=== PATIENT | female | born 1950 | race Caucasian/White ===

== ENCOUNTER 2016-05-17 13:49 | Emergency (ER) | payer MEDICARE, BC ==
--- NOTE | 2016-05-17 16:00 | EDM.PDOC ---
ED HPI HEAD INJURY - General Chief Complaint: Head Injury Stated Complaint: HEAD INJURY Time Seen by Provider: 05/17/16 14:47 Source of Information: Reports: Patient, Family (), RN notes reviewed - History of Present Illness INITIAL COMMENTS - FREE TEXT/NARRATIVE: 65-year-old female that comes in status post fall and lack injury to posterior aspect of head. 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 A couple of her meds had been increased a couple of weeks ago and she was falling much more even on a daily basis. Therefore the Aricept was cut back to the previous 10 mg per day. With that she's been doing better but still has been falling on occasion. Her states that she seems to just lose her balance and will fall unexpectedly. Today this happened when she was leaving the bathroom. She does use a walker. Was no LOC. The laceration of the posterior aspect of her scalp did bleed a fair amount initially but now bleeding has stopped. On arrival to ED and at time of my exam she does deny headache. There's been no vomiting. No other apparent injury. - Related Data Allergies/ADRs: Allergies Allergy/AdvReac Type Severity Reaction Status Date / Time No Known Allergies Allergy Verified 05/17/16 15:08 Home Meds: Home Meds Aspirin [[place] Aspirin] 81 mg PO DAILY 02/12/14 [History] Ramipril [Altace] 10 mg PO DAILY 02/12/14 [History] Cholecalciferol (Vitamin D3) [Vitamin D] 5,000 units PO DAILY 05/31/14 [History] Cyanocobalamin (Vitamin B12) [Vitamin B12] 1,000 mcg PO DAILY 05/31/14 [History] Gluc/Juan-Msm#2/C/D3/Juan R/Born [Vfsmdxumet-Qkrnppflcup-RJK] 1 tab PO BID [History] Sertraline [Zoloft] 100 mg PO DAILY 05/31/14 [History] Acetaminophen [Tylenol] 500 mg PO Q6H PRN 06/05/14 [History] Calcium Carb & Citrate/Vit D3 [Calcium + D3 ER Tablet] 2 tab PO BID 06/05/14 [ History] Simvastatin [Zocor] 40 mg PO BEDTIME 06/05/14 [History] Divalproex Sodium 500 mg PO BEDTIME 05/17/16 [History] Donepezil [Aricept] 1 tab PO BEDTIME 05/17/16 [History] Past Medical History HEENT History: Reports: Impaired vision Cardiovascular History: Reports: Hypertension Other Cardiovascular History: hyperlipidemia Gastrointestinal History: Reports: Other (see below) Other Gastrointestinal History: Diverticular Disease Musculoskeletal History: Reports: Other (see below) Other Musculoskeletal History: 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 foot, bilateral foot pain, chronic joint pain, hallux valgus Neurological History: Reports: Concussion, Other (see below) Other Neuro History: Traumatic Encephalopathy, Memory Loss, 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 Psychiatric History: Reports: Anxiety, Depression Endocrine/Metabolic History: Reports: Diabetes, type II Hematologic History: Reports: Anemia - Past Surgical History Female Surgical History: Reports: Tubal ligation Social & Family History - Tobacco Use Smoking Status *Q: Never Smoker - Caffeine Use Caffeine Use: Reports: None - Alcohol Use Days Per Week of Alcohol Use: 0 Number of Drinks Per Day: 0 Total Drinks Per Week: 0 - Recreational Drug Use Recreational Drug Use: No Drug Use in Last 12 Months: No ED ROS GENERAL - Review of Systems Review Of Systems: See Below Constitutional: Denies: fever, chills, diaphoresis HEENT: Reports: Other (lack injury to posterior aspect of scalp). Denies: Ear discharge, Nosebleed Respiratory: Denies: shortness of breath Cardiovascular: Denies: Chest pain GI/Abdominal: Denies: Abdominal pain, Nausea, Vomiting Musculoskeletal: Denies: neck pain, shoulder pain, leg pain, joint pain Neurological: Denies: trouble speaking (speech is somewhat slow but this is not a change from usual for), weakness ED EXAM, HEAD INJURY - Physical Exam Exam: See Below General Appearance: alert, no apparent distress Head: scalp swelling (very slight posterior), other (2 cm shallow laceration posterior aspect of scalp, edge is very mildly , no active bleeding at time of my exam). No: facial ecchymosis, facial swelling, facial tenderness Eyes: bilateral eye: PERRL Ears: normal external exam, normal canal Nose: normal inspection Throat/Mouth: Normal inspection, Other (no intraoral injury) Neck: non-tender, full range of motion Respiratory: no respiratory distress, lungs clear Cardiovascular: regular rate, rhythm GI/Abdominal Exam (Abbreviated): soft, non tender Back Exam: No: paraspinal tenderness, vertebral tenderness Extremities: no evidence of injury. No: bony-point tenderness Neurologic: no motor/sensory deficits, other (patient does answer simple questions) Skin: Normal color, Warm/dry Course - Vital Signs Last Recorded V/S: Last Vital Signs Temp 98.7 F 05/17/16 15:04 Pulse 74 05/17/16 16:15 Resp 18 05/17/16 16:15 BP 163/62 H 05/17/16 16:15 Pulse Ox 99 05/17/16 16:15 - Re-Assessments/Exams Free Text/Narrative Re-Assessment/Exam: 05/17/16 19:21 she continued to have no headache. I did discuss option of placing some sutures for the posterior laceration. However because this is shallow and very slight separation only we will just go ahead and let this heal on its own. This should do very well. Protective pressure dressing applied. is very comfortable with this discharge instructions as documented Departure - Departure Time of Disposition: 15:57 Disposition: Home, Self-Care 01 Condition: fair Clinical Impression: Fall Qualifiers: Encounter type: initial encounter Qualified Code(s): W19.XXXA - Unspecified fall, initial encounter Scalp laceration Qualifiers: Encounter type: initial encounter Qualified Code(s): S01.01XA - Laceration without foreign body of scalp, initial encounter Instructions: Fall Prevention in the Home, [id number], Laceration Care, Adult , [id number] Referrals: Traci Lynn MD [Primary Care Provider] - Forms: ED Department Discharge Additional Instructions: pressure dressing to wound for the next 3-4 days to help keep that protected and to help prevent further bleeding, this is a wound that should heal quite well without suturing. If there is a bleeding problem with dressing change apply pressure until bleeding stops. Call or return to ED as needed
[2016-05-17 16:32] VITALS: BP 163/62
== END 2016-05-17 16:15 | disposition home or self-care (01) ==
LOC: JD.ED 13:49
DX: S01.01XA Laceration without foreign body of scalp, initial encounter (principal); I10 Essential (primary) hypertension; E78.5 Hyperlipidemia, unspecified; F41.8 Other specified anxiety disorders; E11.9 Type 2 diabetes mellitus without complications; Z79.82 Long term (current) use of aspirin; Z79.899 Other long term (current) drug therapy; W19.XXXA Unspecified fall, initial encounter
CPT/HCPCS: 99282; 99283

== ENCOUNTER 2017-10-25 18:36 | Emergency (ER) | payer MEDICARE, BC ==
[2017-10-25 19:16] VITALS: BP 141/56
--- NOTE | 2017-10-25 19:29 | EDM.PDOC ---
ED HPI GENERAL MEDICAL PROBLEM - General Chief Complaint: Gastrointestinal Problem Stated Complaint: bleeding ulcer Time Seen by Provider: 10/25/17 19:12 Source of Information: Reports: Family (, daughter) History Limitations: Reports: Physical Impairment (Expressive aphasia) - History of Present Illness INITIAL COMMENTS - FREE TEXT/NARRATIVE: The patient has advanced dementia and is unable to contribute to her history. The patient's states that the patient developed bleeding hemorrhoids on 10/16/2017. He was able to get them to stop by applying ice cubes, cold washcloths, and preparation H to the area, and she has only had mild spotting since, however, she again had more significant bleeding tonight. The patient's states that the patient is not followed up with anyone regarding this issue. The patient's PCP is Dr. Traci Lynn. - Related Data Allergies Allergy/AdvReac Type Severity Reaction Status Date / Time No Known Allergies Allergy Verified 10/25/17 19:15 Home Meds: Home Meds Aspirin [[place] Aspirin] 81 mg PO DAILY 02/12/14 [History] Ramipril [Altace] 10 mg PO DAILY 02/12/14 [History] Cholecalciferol (Vitamin D3) [Vitamin D] 5,000 units PO DAILY 05/31/14 [History] Cyanocobalamin (Vitamin B12) [Vitamin B12] 1,000 mcg PO DAILY 05/31/14 [History] Gluc/Juan-Msm#2/C/D3/Juan R/Born [Vsitgwvrib-Icfhdsdagqe-ZEW] 1 tab PO BID [History] Sertraline [Zoloft] 100 mg PO DAILY 05/31/14 [History] Acetaminophen [Tylenol] 500 mg PO Q6H PRN 06/05/14 [History] Calcium Carb & Citrate/Vit D3 [Calcium + D3 ER Tablet] 2 tab PO BID 06/05/14 [ History] Simvastatin [Zocor] 40 mg PO BEDTIME 06/05/14 [History] Divalproex Sodium 500 mg PO BEDTIME 05/17/16 [History] Donepezil [Aricept] 1 tab PO BEDTIME 05/17/16 [History] Past Medical History HEENT History: Reports: Impaired Vision Cardiovascular History: Reports: High Cholesterol, Hypertension Gastrointestinal History: Reports: Diverticulosis, Hemorrhoids Musculoskeletal History: Reports: Osteoarthritis Neurological History: Reports: Head Trauma (leading to dementia) Psychiatric History: Reports: Anxiety, Depression Endocrine/Metabolic History: Reports: Diabetes, Type II Hematologic History: Reports: Anemia - Past Surgical History Female Surgical History: Reports: Tubal Ligation Social & Family History - Family History Family Medical History: Noncontributory - Tobacco Use Smoking Status *Q: Never Smoker - Caffeine Use Caffeine Use: Reports: None - Alcohol Use Alcohol Use History: No - Recreational Drug Use Recreational Drug Use: No - Living Situation & Occupation Living situation: Reports: , with Spouse Occupation: Disabled ED ROS GENERAL - Review of Systems Review Of Systems: ROS reveals no pertinent complaints other than HPI. ED EXAM, GI/ABD - Physical Exam Exam: See Below Exam Limited By: No Limitations (assisted by her ) General Appearance: Other (Awake, confused) Rectal (Female) Exam: Hemorrhoids (Non-thrombosed, non-tender left lateral and right posterior external hemorrhoids. Blood noted on the underwear.) Course - Vital Signs Last Recorded V/S: Last Vital Signs Temp 37.0 C 10/25/17 19:12 Pulse 71 10/25/17 19:12 Resp 17 10/25/17 19:12 BP 141/56 H 10/25/17 19:12 Pulse Ox 98 10/25/17 19:12 - Re-Assessments/Exams Free Text/Narrative Re-Assessment/Exam: 10/25/17 19:26 As the patient's suspected, the patient has bilateral nonthrombosed external hemorrhoids that are not actively bleeding. No treatment is required tonight, but since this is an ongoing problem, I will refer the patient to Dr. Bedolla for follow-up. Departure - Departure Time of Disposition: 19:27 Disposition: Home, Self-Care 01 Condition: Good Clinical Impression: External hemorrhoids - Discharge Information *PRESCRIPTION DRUG MONITORING PROGRAM REVIEWED*: Not Applicable *COPY OF PRESCRIPTION DRUG MONITORING REPORT IN PATIENT SHEREE: Not Applicable Instructions: Hemorrhoids, [id number] Referrals: Traci Lynn MD [Primary Care Provider] - Kristopher Bedolla MD [Physician] - Forms: ED Department Discharge Additional Instructions: Savannah was seen in the emergency room for minor bleeding. Definitive treatment for this condition is surgical. Please have Savannah follow- up with the surgeon Dr. Chioma at the next available appointment. If any other problems, please do not hesitate to return Savannah to the ER.
== END 2017-10-25 19:48 | disposition home or self-care (01) ==
LOC: JD.ED 18:36
DX: K64.4 Residual hemorrhoidal skin tags (principal); E78.00 Pure hypercholesterolemia, unspecified; I10 Essential (primary) hypertension; F41.9 Anxiety disorder, unspecified; F32.9 Major depressive disorder, single episode, unspecified; D64.9 Anemia, unspecified; E11.9 Type 2 diabetes mellitus without complications; Z79.82 Long term (current) use of aspirin; Z79.899 Other long term (current) drug therapy
CPT/HCPCS: 99283

== ENCOUNTER 2018-04-08 12:32 | Emergency (ER) | payer MEDICARE, BC ==
[2018-04-08] MEDS ORDERED: Sodium Chloride 0.9% 10 ML Syringe FLUSH PRN (12:53)
[2018-04-08] MEDS ORDERED: Sodium Chloride 0.9% 1,000 ML IV SCH (13:00)
--- NOTE | 2018-04-08 13:22 | CR ---
Chest: Portable view of the chest was obtained. Comparison: Prior chest x-ray of 03/09/18. Heart size is within normal limits. Tortuous thoracic aorta is seen. Lungs are clear with no acute parenchymal change. Bony structures are osteopenic. Impression: 1. Nothing acute is seen on portable chest x-ray. Diagnostic code #2
[2018-04-08] MEDS ORDERED: Sodium Chloride 0.9% 10 ML Syringe FLUSH ONE (14:10)
[2018-04-08] MEDS ORDERED: Iopamidol 612 MG/ML 100 ML Bottle IVPUSH ONE (14:10)
--- NOTE | 2018-04-08 15:00 | CT ---
CT abdomen and pelvis Technique: Multiple axial sections were obtained from above the dome of the diaphragm inferiorly through the pubic symphysis. Intravenous contrast was utilized. No oral contrast has been given. Delayed images were also obtained from above the kidneys inferiorly through the pubic symphysis. Comparison: Prior CT abdomen and pelvis exam of 03/09/18. Findings: Visualized lung bases show nothing acute. Moderate size hiatal hernia is noted. Liver shows no focal parenchymal abnormality. Small pericardial effusion is seen which is an interval change from previous exam. Spleen appears within normal limits. Complicated lesion is noted within the right kidney which appears stable from most recent exam and could represent a low-grade carcinoma. This finding measures measures between 1.6 cm and 2.0 cm. No additional abnormality is seen within the kidneys. Adrenal glands show no nodule. Pancreas is within normal limits. Gallbladder contains no calcified gallstones. Aorta shows no aneurysm. No retroperitoneal adenopathy or mesenteric abnormalities are seen. No pelvic mass or adenopathy is seen. No free fluid or inflammatory change is seen. Large amount of stool is seen within the rectosigmoid region. Stool and fluid is seen throughout other portions of the colon. Degenerative change with scoliosis is seen within the spine. Delayed images show contrast within both ureters which show no dilatation. Contrast is noted within the bladder. Impression: 1. Large amount of stool within the rectosigmoid region with stool and fluid seen throughout other portions of the colon. Findings compatible with constipation causing obstipation. 2. Complicated renal lesion with low-grade renal cell carcinoma being a possibility within the right kidney. No change in size is definitely seen from most recent exam. 3. Small pericardial effusion which is an interval change from previous exam. 4. Other incidental findings as noted above. Diagnostic code #9
[2018-04-08] MEDS ORDERED: Metoclopramide 10 MG/2 ML SDV IVPUSH ONE (16:18)
--- NOTE | 2018-04-08 16:32 | EDM.PDOC ---
ED HPI GENERAL MEDICAL PROBLEM - General Chief Complaint: Gastrointestinal Problem Stated Complaint: [facility] Time Seen by Provider: 04/08/18 12:42 Source of Information: Reports: EMS, Family, Longterm Records History Limitations: Reports: Altered Mental Status - History of Present Illness INITIAL COMMENTS - FREE TEXT/NARRATIVE: The patient presents from [facility] for vomiting. The patient has a history of bowel obstructions and aspirations. She has alzheimer's disease and does not talk. At times it is hard to feed her. Her fed her this morning and she vomited a couple times. She also had a large bowel movement this morning. When she arrived her her oxygen saturations were low at 86%. She was put on some oxygen and her saturations came up. She was getting some phlegm up. Onset: Sudden Duration: Hour(s): Severity: Moderate Improves with: Reports: None Worsens with: Reports: None Associated Symptoms: Reports: Cough, Nausea/Vomiting, Shortness of Breath - Related Data Allergies Allergy/AdvReac Type Severity Reaction Status Date / Time No Known Allergies Allergy Verified 02/22/18 10:44 Home Meds: Home Meds ARIPiprazole [Abilify] 1 tab PO BEDTIME 02/22/18 [History] Acetaminophen [Tylenol Extra Strength] 500 mg PO Q8H PRN 02/22/18 [History] Ascorbate Calcium [Vitamin C] 500 mg PO DAILY 02/22/18 [History] Aspirin [Adult Aspirin] 81 mg PO DAILY 02/22/18 [History] Calcium Carbonate/Vitamin D3 [Calcium 500-Vit D3 200 Caplet] 1 tab PO BID [History] Cholecalciferol (Vitamin D3) [Vitamin D3] 1 tab PO DAILY 02/22/18 [History] Cyanocobalamin (Vitamin B-12) [B-12] 500 mcg PO DAILY 02/22/18 [History] Donepezil [Aricept] 10 mg PO BEDTIME 02/22/18 [History] Furosemide 20 mg PO DAILY 02/22/18 [History] Gluc HCl/Csa/Warren Hy/Hyalur Ac [Glucosamine Chondroitin] 2 cap PO BID 02/22/18 [ History] Ondansetron [Zofran ODT] 4 mg PO Q8HR PRN 02/22/18 [History] Potassium Chloride 1 tab PO DAILY 02/22/18 [History] Sertraline [Zoloft] 150 mg PO BEDTIME 02/22/18 [History] Simvastatin [Zocor] 1 tab PO DAILY 02/22/18 [History] Divalproex Sodium [Depakote Sprinkle] 500 mg PO BEDTIME #30 cap.sprink 03/18/18 [Rx] Dronabinol [Marinol] 2.5 mg PO TIDAC #65 cap 03/18/18 [Rx] Pantoprazole [ProTONIX] 40 mg PO DAILY #30 tab.cr 03/18/18 [Rx] Saccharomyces Boulardii [Florastor] 250 mg PO BID #60 cap 03/18/18 [Rx] Arginine/Glutamine/Calcium Hmb [Jonny Packet] 1 each PO BID 04/08/18 [History] Crush Medications 1 dose PO ASDIRECTED PRN 04/08/18 [History] Dysphagia Diet 1 b PO TID 04/08/18 [History] Fructooligosaccharides/Polydex [Hyfiber with Fos Liquid] 1 pack PO ASDIRECTED PRN 04/08/18 [History] Lactose-Reduced Food [Boost Plus] 4 oz PO QID 04/08/18 [History] Metoclopramide HCl [Reglan] 10 mg PO Q6HR PRN #30 tablet 04/08/18 [Rx] Oxygen 2 liter IH ASDIRECTED PRN 04/08/18 [History] Past Medical History HEENT History: Reports: Impaired Vision Cardiovascular History: Reports: High Cholesterol, Hypertension Other Cardiovascular History: hyperlipidemia, hypomagnesmia, hypokalemia Respiratory History: Reports: SOB Gastrointestinal History: Reports: Diverticulosis, GERD, Hemorrhoids, Other ( See Below) Other Gastrointestinal History: bowel resection, nausea, ilius, C. 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 Psychiatric History: Reports: Anxiety, Dementia, Depression Endocrine/Metabolic History: Reports: Diabetes, Type II Other Endocrine/Metabolic History: with weight loss pt is not considered diabetic at this time Hematologic History: Reports: Anemia Other Hematologic History: low iron- no transfusions Dermatologic History: Reports: Other (See Below) Other Dermatologic History: non-pressure chronic ulcer of skin - Past Surgical History Female Surgical History: Reports: Hysterectomy, Tubal Ligation Social & Family History - Family History Family Medical History: Unobtainable - Tobacco Use Smoking Status *Q: Never Smoker - Caffeine Use Caffeine Use: Reports: None - Recreational Drug Use Recreational Drug Use: No - Living Situation & Occupation Living situation: Reports: , with Spouse Occupation: Disabled ED ROS GENERAL - Review of Systems Review Of Systems: See Below Constitutional: Reports: No Symptoms HEENT: Reports: No Symptoms Respiratory: Reports: No Symptoms Cardiovascular: Reports: No Symptoms Endocrine: Reports: No Symptoms GI/Abdominal: Reports: Nausea, Vomiting : Reports: No Symptoms Musculoskeletal: Reports: No Symptoms ED EXAM, GI/ABD - Physical Exam Exam: See Below Exam Limited By: No Limitations General Appearance: Alert, No Apparent Distress Ears: Normal External Exam Nose: Normal Inspection Head: Atraumatic, Normocephalic Neck: Normal Inspection Respiratory/Chest: No Respiratory Distress, Lungs Clear, Normal Breath Sounds Cardiovascular: Regular Rate, Rhythm, No Edema, No Murmur GI/Abdominal Exam: Soft, Non-Tender, No Organomegaly, No Mass Extremities: Normal Inspection Course - Vital Signs Last Recorded V/S: Last Vital Signs Temp 98.1 F 04/08/18 12:32 Pulse 100 04/08/18 12:32 Resp 36 H 04/08/18 12:32 BP 145/81 H 04/08/18 12:32 Pulse Ox 86 L 04/08/18 12:32 - Orders/Labs/Meds Orders: Active Orders 24 hr Category Date Time Status Enema [RC] ASDIRECTED Care 04/08/18 15:20 Active Insert Urinary Catheter [OM.PC] Q24H Care 04/08/18 14:00 Ordered Peripheral IV Care [RC] . DIRECTED Care 04/08/18 12:54 Active Urinary Catheter Assessment [RC] ASDIRECTED Care 04/08/18 13:58 Active Sodium Chloride 0.9% [Normal Saline] 1,000 ml Med 04/08/18 13:00 Active IV ASDIRECTED Sodium Chloride 0.9% [Saline Flush] Med 04/08/18 12:53 Active 10 ml FLUSH ASDIRECTED PRN ED Antiemetic Medication Reflex [OM.PC] Stat Oth 04/08/18 12:53 Ordered Peripheral IV Insertion Adult [OM.PC] Stat Oth 04/08/18 12:53 Ordered Medication Orders Sodium Chloride (Normal Saline) 1,000 mls @ 125 mls/hr IV ASDIRECTED STEFANIE Last Admin: 04/08/18 13:34 Dose: 125 mls/hr Sodium Chloride (Saline Flush) 10 ml FLUSH ASDIRECTED PRN PRN Reason: Keep Vein Open Last Admin: 04/08/18 13:34 Dose: 10 ml Labs: Laboratory Tests 04/08/18 04/08/18 04/08/18 Range/Units 13:20 13:20 14:00 WBC 19.70 H (3.98-10.04) K/mm3 RBC 5.30 H (3.98-5.22) M/mm3 Hgb 12.9 (11.2-15.7) gm/L Hct 41.2 (34.1-44.9) % MCV 77.7 L (79.4-94.8) fl MCH 24.3 L (25.6-32.2) pg MCHC 31.3 L (32.2-35.5) g/dl RDW Std Deviation 43.2 (36.4-46.3) fL Plt Count 395 H (182-369) K/mm3 MPV 11.0 (9.4-12.3) fl Neut % (Auto) 90.8 H (34.0-71.1) % Lymph % (Auto) 3.6 L (19.3-51.7) % [place] % (Auto) 3.2 L (4.7-12.5) % Eos % (Auto) 2.0 (0.7-5.8) Baso % (Auto) 0.1 (0.1-1.2) % Neut # (Auto) 17.89 H (1.56-6.13) K/mm3 Lymph # (Auto) 0.71 L (1.18-3.74) K/mm3 [place]lier # (Auto) 0.63 H (0.24-0.36) K/mm3 Eos # (Auto) 0.39 H (0.04-0.36) K/mm3 Baso # (Auto) 0.02 (0.01-0.08) K/mm3 Manual Slide Review Abnormal smear Sodium 139 (136-145) mEq/L Potassium 4.4 (3.5-5.1) mEq/L Chloride 101 (98-107) mEq/L Carbon Dioxide 25 (21-32) mEq/L Anion Gap 17.4 H (5-15) BUN 14 (7-18) mg/dL Creatinine 0.8 (0.55-1.02) mg/dL Est Cr Clr Drug Dosing 64.99 mL/min Estimated GFR (MDRD) > 60 (>60) mL/min BUN/Creatinine Ratio 17.5 (14-18) Glucose 255 H (80-115) mg/dL Calcium 9.8 (8.5-10.1) mg/dL Magnesium 2.5 H (1.8-2.4) mg/dl Total Bilirubin 0.5 (0.2-1.0) mg/dL AST 17 (15-37) U/L ALT 15 (14-59) U/L Alkaline Phosphatase 68 (46-116) U/L Total Protein 8.0 (6.4-8.2) g/dl Albumin 3.2 L (3.4-5.0) g/dl Globulin 4.8 gm/dL Albumin/Globulin Ratio 0.7 L (1-2) Lipase 456 H (73-393) U/L Urine Color Yellow (Yellow) Urine Appearance Clear (Clear) Urine pH 5.5 (5.0-8.0) Ur Specific [place] 1.025 (1.005-1.030) Urine Protein Negative (Negative) Urine Glucose (UA) Negative (Negative) Urine Ketones Negative (Negative) Urine Occult Blood Negative (Negative) Urine Nitrite Negative (Negative) Urine Bilirubin Negative (Negative) Urine Urobilinogen 0.2 (0.2-1.0) Ur Leukocyte Esterase Negative (Negative) Urine RBC Not seen (0-5) /hpf Urine WBC 0-5 (0-5) /hpf Ur Epithelial Cells 0-5 (0-5) /hpf Urine Bacteria Rare (FEW) /hpf Urine Mucus Few (FEW) /hpf Meds: Medications Generic Name Dose Route Start Last Admin Trade Name Freq PRN Reason Stop Dose Admin Sodium Chloride 1,000 mls @ 125 mls/hr 04/08/18 13:00 04/08/18 13:34 Normal Saline IV 125 mls/hr ASDIRECTED STEFANIE Administration Sodium Chloride 10 ml 04/08/18 12:53 04/08/18 13:34 Saline Flush FLUSH 10 ml ASDIRECTED PRN Administration Keep Vein Open Discontinued Medications Generic Name Dose Route Start Last Admin Trade Name Yisel PRN Reason Stop Dose Admin Iopamidol 100 ml 04/08/18 14:10 04/08/18 14:17 Isovue-300 (61%) IVPUSH 04/08/18 14:11 100 ml ONETIME ONE Administration Metoclopramide HCl 10 mg 04/08/18 16:18 04/08/18 16:30 Reglan IVPUSH 04/08/18 16:19 10 mg ONETIME ONE Administration Sodium Chloride 10 ml 04/08/18 14:10 04/08/18 14:18 Saline Flush FLUSH 04/08/18 14:11 10 ml ONETIME ONE Administration - Re-Assessments/Exams Free Text/Narrative Re-Assessment/Exam: 04/08/18 16:36 I ordered an IV NS 1L bolus, labs, UA and a CT of her abdomen and pelvis and a CXR. Her WBC was elevated at 19.7. Her Hgb was normal. Her platelets were elevated at 395. Her anion gap was elevated at 17.4. Her magnesium was elevated at 2.5. Her lipase was slightly elevated at 456. Her CT shows large amount of stool within the rectoidsigmoid region with stool and fluid seen throughout other portions of the colon. Findings compatible with constipation causing obstipation. Complicated renal lesion with low-grade renal cell carcinoma being a possibility within the right kidney. No change in size is definitely seen from most recent exam. Small pericardial effusion which is an interval change from previous exam. I have ordered a soap suds enema. During the enema the patient vomited. I ordered some reglan 10mg IV. 04/08/18 16:56 She did have some output but not much. She has a hard time holding it in. I will send her back with some miralax and reglan. I talked with Dr Lynn and she will review the records and she if the patient needs a PEG tube. Departure - Departure Time of Disposition: 17:00 Disposition: DC/Tfer to [facility] Condition: Fair Clinical Impression: Lesion of right red cliff kidney Constipation Qualifiers: Constipation type: other constipation type Qualified Code(s): K59.09 - Other constipation Vomiting Qualifiers: Vomiting type: unspecified Vomiting Intractability: non-intractable Nausea presence: unspecified Qualified Code(s): R11.10 - Vomiting, unspecified Leukocytosis Qualifiers: Leukocytosis type: unspecified Qualified Code(s): D72.829 - Elevated white blood cell count, unspecified - Discharge Information *PRESCRIPTION DRUG MONITORING PROGRAM REVIEWED*: No *COPY OF PRESCRIPTION DRUG MONITORING REPORT IN PATIENT SHEREE: No Prescriptions: Metoclopramide HCl [Reglan] 10 mg PO Q6HR PRN #30 tablet PRN Reason: Vomiting Referrals: Traci Lynn MD [Primary Care Provider] - 1 Week Forms: ED Department Discharge Additional Instructions: Take reglan 10mg every 6 hours for the next 3 days and then as needed. Use miralax 1 tablespoon with 8 ounces of water daily until [place] has a bowel movement. Follow up with Dr Lynn next week. Please return if [place] is worse. - My Orders Last 24 Hours: My Active Orders 04/08/18 12:53 Sodium Chloride 0.9% [Saline Flush] 10 ml FLUSH ASDIRECTED PRN ED Antiemetic Medication Reflex [OM.PC] Stat Peripheral IV Insertion Adult [OM.PC] Stat 04/08/18 12:54 Peripheral IV Care [RC] . DIRECTED 04/08/18 13:00 Sodium Chloride 0.9% [Normal Saline] 1,000 ml IV ASDIRECTED 04/08/18 13:58 Urinary Catheter Assessment [RC] ASDIRECTED 04/08/18 14:00 Insert Urinary Catheter [OM.PC] Q24H 04/08/18 15:20 Enema [RC] ASDIRECTED - Assessment/Plan Last 24 Hours: My Active Orders 04/08/18 12:53 Sodium Chloride 0.9% [Saline Flush] 10 ml FLUSH ASDIRECTED PRN ED Antiemetic Medication Reflex [OM.PC] Stat Peripheral IV Insertion Adult [OM.PC] Stat 04/08/18 12:54 Peripheral IV Care [RC] . DIRECTED 04/08/18 13:00 Sodium Chloride 0.9% [Normal Saline] 1,000 ml IV ASDIRECTED 04/08/18 13:58 Urinary Catheter Assessment [RC] ASDIRECTED 04/08/18 14:00 Insert Urinary Catheter [OM.PC] Q24H 04/08/18 15:20 Enema [RC] ASDIRECTED
[2018-04-08 18:03] VITALS: BP 140/84
== END 2018-04-08 19:31 ==
LOC: JD.ED 12:32
DX: R11.2 Nausea with vomiting, unspecified (principal); K59.09 Other constipation; D72.829 Elevated white blood cell count, unspecified; N28.9 Disorder of kidney and ureter, unspecified; E78.00 Pure hypercholesterolemia, unspecified; I10 Essential (primary) hypertension; E78.5 Hyperlipidemia, unspecified; F41.9 Anxiety disorder, unspecified; F32.9 Major depressive disorder, single episode, unspecified; E11.9 Type 2 diabetes mellitus without complications; Z79.899 Other long term (current) drug therapy
CPT/HCPCS: 36415; 71045; 74177; 80053; 81001; 83690; 83735; 85025; 96361; 96374; 99285; J2765; J7040; Q9967

== ENCOUNTER 2018-07-28 13:23 | Inpatient (IN) | payer MEDICARE, BC, MEDICAID ==
[2018-07-28] MEDS ORDERED: Sodium Chloride 0.9% 10 ML Syringe FLUSH PRN (13:54)
[2018-07-28] MEDS ORDERED: Sodium Chloride 0.9% 1,000 ML IV SCH (14:00)
[2018-07-28] MEDS ORDERED: Iopamidol 755 Mg/ML 200 ML Bottle IV ONE (15:11)
[2018-07-28] MEDS ORDERED: Sodium Chloride 0.9% 10 ML Syringe FLUSH ONE (15:11)
--- NOTE | 2018-07-28 15:54 | EDM.PDOC ---
ED HPI GENERAL MEDICAL PROBLEM - General Chief Complaint: Fever Stated Complaint: [facility] Time Seen by Provider: 07/28/18 13:36 Source of Information: Reports: EMS, Family, Skilled Nursing Records History Limitations: Reports: Altered Mental Status - History of Present Illness INITIAL COMMENTS - FREE TEXT/NARRATIVE: The patient presents by [facility] for abdominal distention, abdominal pain and fever. This started a few days ago. She has a history of traumatic brain injury and bowel obstructions. She last had a bowel movement 2 days ago. She had some vomiting yesterday. She still takes oral feedings but has troubles with constipation at times. She has no cough but she did have a fever at the senior care. Onset: Gradual Duration: Day(s): Location: Reports: Abdomen Severity: Moderate Improves with: Reports: None Worsens with: Reports: None Associated Symptoms: Reports: Fever/Chills, Nausea/Vomiting. Denies: Chest Pain , Cough, Shortness of Breath - Related Data Allergies Allergy/AdvReac Type Severity Reaction Status Date / Time No Known Allergies Allergy Verified 07/28/18 13:28 Home Meds: Home Meds Acetaminophen [Tylenol Extra Strength] 500 mg PO Q8H PRN 02/22/18 [History] Ondansetron [Zofran ODT] 4 mg PO Q6HR PRN 02/22/18 [History] Sertraline [Zoloft] 150 mg PO BEDTIME 02/22/18 [History] Pantoprazole [ProTONIX] 40 mg PO DAILY #30 tab.cr 03/18/18 [Rx] Saccharomyces Boulardii [Florastor] 250 mg PO BID #60 cap 03/18/18 [Rx] Crush Medications 1 dose PO ASDIRECTED PRN 04/08/18 [History] Divalproex Sodium [Depakote Sprinkle] 125 mg PO BEDTIME 07/28/18 [History] Lactose-Reduced Food [Boost Plus] 120 ml PO QID 07/28/18 [History] Menthol/Camphor [Sarna Anti-Itch Lotion] 1 applic TOP ASDIRECTED PRN 07/28/18 [ History] Polyethylene Glycol 3350 [MiraLAX] 1 dose PO DAILY 07/28/18 [History] Past Medical History HEENT History: Reports: Impaired Vision Cardiovascular History: Reports: High Cholesterol, Hypertension Other Cardiovascular History: hyperlipidemia, hypomagnesmia, hypokalemia Respiratory History: Reports: SOB Gastrointestinal History: Reports: Diverticulosis, GERD, Hemorrhoids, Other ( See Below) Other Gastrointestinal History: bowel resection, nausea, ilius, C. 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 Psychiatric History: Reports: Anxiety, Dementia, Depression Endocrine/Metabolic History: Reports: Diabetes, Type II Other Endocrine/Metabolic History: with weight loss pt is not considered diabetic at this time Hematologic History: Reports: Anemia Other Hematologic History: low iron- no transfusions Dermatologic History: Reports: Other (See Below) Other Dermatologic History: non-pressure chronic ulcer of skin - Past Surgical History Female Surgical History: Reports: Hysterectomy, Tubal Ligation Social & Family History - Family History Family Medical History: Unobtainable - Tobacco Use Smoking Status *Q: Never Smoker Second Hand Smoke Exposure: No - Caffeine Use Caffeine Use: Reports: None - Recreational Drug Use Recreational Drug Use: No - Living Situation & Occupation Living situation: Reports: , with Spouse Occupation: Disabled ED ROS GENERAL - Review of Systems Review Of Systems: See Below Constitutional: Reports: Fever HEENT: Reports: No Symptoms Respiratory: Reports: No Symptoms Cardiovascular: Reports: No Symptoms Endocrine: Reports: No Symptoms GI/Abdominal: Reports: Abdominal Pain, Constipation, Nausea, Vomiting : Reports: No Symptoms ED EXAM, SEPSIS - Physical Exam Exam: See Below Exam Limited By: No Limitations General Appearance: Alert, No Apparent Distress Ears: Normal External Exam Nose: Normal Inspection Head: Atraumatic, Normocephalic Neck: Normal Inspection Respiratory/Chest: No Respiratory Distress, Lungs Clear, Normal Breath Sounds Cardiovascular: Regular Rate, Rhythm, No Edema, No Murmur GI/Abdominal Exam: Soft, Distended, Tender (Moderate), Other (Hyperactive bowel sounds) Back: Normal Inspection Extremities: Normal Inspection Neurological: Alert, Oriented, No Motor/Sensory Deficits Course - Vital Signs Last Recorded V/S: Last Vital Signs Temp 100.3 F 07/28/18 13:29 Pulse 102 H 07/28/18 13:29 Resp 16 07/28/18 13:29 BP 191/97 H 07/28/18 13:29 Pulse Ox 91 L 07/28/18 13:29 - Orders/Labs/Meds Orders: Active Orders 24 hr Category Date Time Status Insert Gil Catheter [Insert Urinary Catheter] [OM.PC] Care 07/28/18 14:30 Ordered Stat Peripheral IV Care [RC] . DIRECTED Care 07/28/18 13:55 Active Urinary Catheter Assessment [RC] ASDIRECTED Care 07/28/18 14:30 Active CULTURE BLOOD [BC] Stat Lab 07/28/18 15:46 Ordered CULTURE BLOOD [BC] Stat Lab 07/28/18 15:46 Ordered CULTURE URINE [RM] Stat Lab 07/28/18 15:00 Received LACTIC ACID [CHEM] Stat Lab 07/28/18 15:46 Ordered Potassium Chloride 20 meq Med 07/28/18 16:45 Active Dextrose 5% in Water 1,000 ml IV ASDIRECTED Sodium Chloride 0.9% [Normal Saline] 1,000 ml Med 07/28/18 14:00 Active IV ASDIRECTED Sodium Chloride 0.9% [Saline Flush] Med 07/28/18 13:54 Active 10 ml FLUSH ASDIRECTED PRN cefTRIAXone [Rocephin] 2 gm Med 07/28/18 16:00 Active Sodium Chloride 0.9% [Normal Saline] 100 ml IV Q24H Blood Culture x2 Reflex Set [OM.PC] Stat Oth 07/28/18 15:46 Ordered ED Antiemetic Medication Reflex [OM.PC] Stat Oth 07/28/18 13:54 Ordered Peripheral IV Insertion Adult [OM.PC] Stat Oth 07/28/18 13:54 Ordered Rectal Tube Insertion [OM.PC] Routine Oth 07/28/18 16:38 Ordered Medication Orders Sodium Chloride (Normal Saline) 1,000 mls @ 125 mls/hr IV ASDIRECTED STEFANIE Last Admin: 07/28/18 14:40 Dose: 125 mls/hr Ceftriaxone Sodium 2 gm/ (Sodium Chloride) 100 mls @ 200 mls/hr IV Q24H STEFANIE Last Admin: 07/28/18 16:05 Dose: 200 mls/hr Potassium Chloride 20 meq/ (Dextrose/Water) 1,010 mls @ 101 mls/hr IV ASDIRECTED STEFANIE Sodium Chloride (Saline Flush) 10 ml FLUSH ASDIRECTED PRN PRN Reason: Keep Vein Open Last Admin: 07/28/18 14:40 Dose: 10 ml Labs: Laboratory Tests 07/28/18 07/28/18 07/28/18 Range/Units 14:20 14:20 15:00 WBC 15.06 H (3.98-10.04) K/mm3 RBC 5.42 H (3.98-5.22) M/mm3 Hgb 12.2 (11.2-15.7) gm/L Hct 39.6 (34.1-44.9) % MCV 73.1 L (79.4-94.8) fl MCH 22.5 L (25.6-32.2) pg MCHC 30.8 L (32.2-35.5) g/dl RDW Std Deviation 50.4 H (36.4-46.3) fL Plt Count 296 (182-369) K/mm3 MPV 11.5 (9.4-12.3) fl Neut % (Auto) 85.1 H (34.0-71.1) % Lymph % (Auto) 7.4 L (19.3-51.7) % [place] % (Auto) 7.2 (4.7-12.5) % Eos % (Auto) 0 L (0.7-5.8) Baso % (Auto) 0.1 (0.1-1.2) % Neut # (Auto) 12.82 H (1.56-6.13) K/mm3 Lymph # (Auto) 1.12 L (1.18-3.74) K/mm3 [place] # (Auto) 1.08 H (0.24-0.36) K/mm3 Eos # (Auto) 0.00 L (0.04-0.36) K/mm3 Baso # (Auto) 0.01 (0.01-0.08) K/mm3 Manual Slide Review Abnormal smear Sodium 151 H (136-145) mEq/L Potassium 3.0 L (3.5-5.1) mEq/L Chloride 112 H (98-107) mEq/L Carbon Dioxide 27 (21-32) mEq/L Anion Gap 15.0 (5-15) BUN 25 H (7-18) mg/dL Creatinine 0.7 (0.55-1.02) mg/dL Est Cr Clr Drug Dosing TNP Estimated GFR (MDRD) > 60 (>60) mL/min BUN/Creatinine Ratio 35.7 H (14-18) Glucose 152 H (80-115) mg/dL Calcium 9.3 (8.5-10.1) mg/dL Total Bilirubin 0.3 (0.2-1.0) mg/dL AST 13 L (15-37) U/L ALT 19 (14-59) U/L Alkaline Phosphatase 85 (46-116) U/L Total Protein 7.6 (6.4-8.2) g/dl Albumin 3.4 (3.4-5.0) g/dl Globulin 4.2 gm/dL Albumin/Globulin Ratio 0.8 L (1-2) Lipase 221 (73-393) U/L Urine Color Yellow (Yellow) Urine Appearance Cloudy H (Clear) Urine pH 6.0 (5.0-8.0) Ur Specific [place] 1.025 (1.005-1.030) Urine Protein 1+ H (Negative) Urine Glucose (UA) Negative (Negative) Urine Ketones Negative (Negative) Urine Occult Blood 1+ H (Negative) Urine Nitrite Positive H (Negative) Urine Bilirubin Negative (Negative) Urine Urobilinogen 0.2 (0.2-1.0) Ur Leukocyte Esterase 2+ H (Negative) Urine RBC 10-20 H (0-5) /hpf Urine WBC 30-40 H (0-5) /hpf Urine WBC Clumps Many (NOT SEEN) /hpf Ur Epithelial Cells 0-5 (0-5) /hpf Urine Bacteria Many H (FEW) /hpf Hyaline Casts 0-5 (0-5) /lpf Urine Mucus Few (FEW) /hpf Meds: Medications Generic Name Dose Route Start Last Admin Trade Name Freq PRN Reason Stop Dose Admin Sodium Chloride 1,000 mls @ 125 mls/hr 07/28/18 14:00 07/28/18 14:40 Normal Saline IV 125 mls/hr ASDIRECTED STEFANIE Administration Ceftriaxone Sodium 2 gm/ 100 mls @ 200 mls/hr 07/28/18 16:00 07/28/18 16:05 Sodium Chloride IV 200 mls/hr Q24H STEFANIE Administration Potassium Chloride 20 meq/ 1,010 mls @ 101 mls/hr 07/28/18 16:45 Dextrose/Water IV ASDIRECTED STEFANIE Sodium Chloride 10 ml 07/28/18 13:54 07/28/18 14:40 Saline Flush FLUSH 10 ml ASDIRECTED PRN Administration Keep Vein Open Discontinued Medications Generic Name Dose Route Start Last Admin Trade Name Yisel PRN Reason Stop Dose Admin Dextrose/Water 1,000 mls @ 100 mls/hr 07/28/18 16:45 Dextrose 5% In Water IV ASDIRECTED STEFANIE Iopamidol 100 ml 07/28/18 15:11 07/28/18 15:30 Isovue-370 (76%) IV 07/28/18 15:12 100 ml ONETIME ONE Administration Sodium Chloride 10 ml 07/28/18 15:11 07/28/18 15:31 Saline Flush FLUSH 07/28/18 15:12 10 ml ONETIME ONE Administration - Re-Assessments/Exams Free Text/Narrative Re-Assessment/Exam: 07/28/18 15:55 I ordered an IV NS at 125mL/hr, zofran 4mg IV, labs, and a CT of his abdomen and pelvis. 07/28/18 16:39 Her WBC is elevated at 15.06. Her Na was elevated at 151. I switched his IV fluids to D5w 20meq KCl at 100ml/hr. Her K was low at 3. Her glucose was 152. His lipase was normal. Her UA shows a UTI. I have ordered lactic acid, cultures, and rocephin [address] shows gas dilated colon with liquid stool within the rectum. Findings most likely represent prominent colonic ileus. Some of these findings are seen on prior study but findings are felt to be increased in amount from previous exam. Other incidental findings. 07/28/18 16:51 I have ordered a rectal tube. I feel she needs to be admitted. I called Dr Dickerson and he agreed to the admission. Departure - Departure Time of Disposition: 16:55 Disposition: Admitted As Inpatient 66 Condition: Fair Clinical Impression: Ileus UTI (urinary tract infection) Qualifiers: Urinary tract infection type: site unspecified Hematuria presence: without hematuria Qualified Code(s): N39.0 - Urinary tract infection, site not specified - Discharge Information Referrals: Traci Lynn MD [Primary Care Provider] - Forms: ED Department Discharge - My Orders Last 24 Hours: My Active Orders 07/28/18 13:54 Sodium Chloride 0.9% [Saline Flush] 10 ml FLUSH ASDIRECTED PRN ED Antiemetic Medication Reflex [OM.PC] Stat Peripheral IV Insertion Adult [OM.PC] Stat 07/28/18 13:55 Peripheral IV Care [RC] . DIRECTED 07/28/18 14:00 Sodium Chloride 0.9% [Normal Saline] 1,000 ml IV ASDIRECTED 07/28/18 14:30 Insert Gil Catheter [Insert Urinary Catheter] [OM.PC] Stat Urinary Catheter Assessment [RC] ASDIRECTED 07/28/18 15:00 CULTURE URINE [RM] Stat 07/28/18 15:46 CULTURE BLOOD [BC] Stat CULTURE BLOOD [BC] Stat LACTIC ACID [CHEM] Stat Blood Culture x2 Reflex Set [OM.PC] Stat 07/28/18 16:00 cefTRIAXone [Rocephin] 2 gm Sodium Chloride 0.9% [Normal Saline] 100 ml IV Q24H 07/28/18 16:38 Rectal Tube Insertion [OM.PC] Routine 07/28/18 16:45 Potassium Chloride 20 meq Dextrose 5% in Water 1,000 ml IV ASDIRECTED - Assessment/Plan Last 24 Hours: My Active Orders 07/28/18 13:54 Sodium Chloride 0.9% [Saline Flush] 10 ml FLUSH ASDIRECTED PRN ED Antiemetic Medication Reflex [OM.PC] Stat Peripheral IV Insertion Adult [OM.PC] Stat 07/28/18 13:55 Peripheral IV Care [RC] . DIRECTED 07/28/18 14:00 Sodium Chloride 0.9% [Normal Saline] 1,000 ml IV ASDIRECTED 07/28/18 14:30 Insert Gil Catheter [Insert Urinary Catheter] [OM.PC] Stat Urinary Catheter Assessment [RC] ASDIRECTED 07/28/18 15:00 CULTURE URINE [RM] Stat 07/28/18 15:46 CULTURE BLOOD [BC] Stat CULTURE BLOOD [BC] Stat LACTIC ACID [CHEM] Stat Blood Culture x2 Reflex Set [OM.PC] Stat 07/28/18 16:00 cefTRIAXone [Rocephin] 2 gm Sodium Chloride 0.9% [Normal Saline] 100 ml IV Q24H 07/28/18 16:38 Rectal Tube Insertion [OM.PC] Routine 07/28/18 16:45 Potassium Chloride 20 meq Dextrose 5% in Water 1,000 ml IV ASDIRECTED
[2018-07-28] MEDS: cefTRIAXone 2 GM in Sodium Chloride 0.9% 100 ML IV SCH (16:05)
--- NOTE | 2018-07-28 16:08 | CT ---
CT abdomen and pelvis Technique: Multiple axial sections were obtained from above the dome of the diaphragm inferiorly through the pubic symphysis. Intravenous contrast was utilized. No oral contrast has been given. Comparison: Previous CT abdomen and pelvis exam of 04/08/18. Findings: Small portion of the visualized lung bases shows nothing acute. Liver shows no focal parenchymal abnormality. Spleen appears within normal limits. Small hiatal hernia is present. Adrenal glands show no nodule. Pancreas is within normal limits. Fatty containing lesion is seen off the cortex of the right kidney measuring 1.5 cm which is felt compatible with an angiomyolipoma rather than a low-grade carcinoma is questioned on previous study. Kidneys otherwise appear within normal limits. Gallbladder contains no calcified gallstones. Aorta shows no aneurysm. No retroperitoneal adenopathy or mesenteric abnormalities are seen. Gas dilated colon is seen particularly within the rectosigmoid region. Liquid stool is seen within the rectum. Findings are felt compatible with prominent colonic ileus. Appendix not definitely visualized. No free fluid or inflammatory change is seen. Delayed images shows contrast within the distal ureters as well as within the bladder. Bone window settings were reviewed which shows compression deformities of L1 and L2 which are old. Scattered degenerative change is seen within the spine. Impression: 1. Gas dilated colon with liquid stool within the rectum. Findings most likely represent prominent colonic ileus. Some of these findings are seen on prior study but findings are felt to be increased in amount from previous exam. 2. Other incidental findings as noted above. Diagnostic code #3
[2018-07-28] MEDS ORDERED: Potassium Chloride 20 MEQ in Dextrose 5% in Water 1,000 ML IV SCH ×2 (16:45)
[2018-07-28] MEDS ORDERED: Dextrose 5% in Water 1,000 ML IV SCH (16:45)
[2018-07-28] MEDS ORDERED: Non-Formulary Medication 1 Each (Acetaminophen 500 MG) PO PRN (17:18)
[2018-07-28] MEDS ORDERED: [UNRECOGNIZED DRUG - OTHER] TOP PRN (17:18)
[2018-07-28] MEDS ORDERED: Ondansetron 4 MG Tab.DIS PO PRN (17:18)
[2018-07-28] MEDS ORDERED: hydrALAZINE 20 MG/ML SDV IVPUSH PRN (17:19)
[2018-07-28] MEDS ORDERED: Metoprolol Tartrate 5 MG/5 ML SDV IVPUSH PRN (17:19)
[2018-07-28] MEDS ORDERED: LORazepam 2 MG/ML SDV IVPUSH PRN (17:19)
[2018-07-28] MEDS ORDERED: Acetaminophen/HYDROcodone 325-5 MG Tab PO PRN (17:21)
[2018-07-28] MEDS ORDERED: Albuterol/Ipratropium 3.0-0.5 MG/3 ML Neb Soln NEB PRN (17:21)
[2018-07-28] MEDS ORDERED: HYDROmorphone 0.5 MG/0.5 ML Syringe IVPUSH PRN (17:21)
[2018-07-28] MEDS ORDERED: Acetaminophen 325 MG Tab PO PRN (17:21)
[2018-07-28] MEDS ORDERED: cloNIDine 0.3 MG/Day Transdermal Patch TRDERM ONE (17:30)
--- NOTE | 2018-07-28 17:32 | PCM.SN ---
- Free Text/Narrative Note: This is a 67 yo white female with past medical hx/o Dementia, GERD, Seizure Disorder, Hx/o C. Diff Colitis, Chronic Constipation, Immobility, Hx/o Ileus, HTN, HLD, MDD, Chronic Skin Ulcers, DM2/Hyperglycemia, Chronic Electrolytes Abnormality, Hx/o Diverticulosis, Hemorrhoids, KOBE, Urinary/Bowel Incontinence, OA, DM2, Encephalopathy 2/2 Trauma and Dysphagia-NDD2 who comes in for evaluation of worsening abdominal distention associated with pain, vomiting, constipation, fever that started a few days ago. Patient is mostly bedbound due to hx/o traumatic brain injury. Her last bowel movement was a couple of days ago. She is known to the hospitalist service from previous admission due to similar presentation, diagnosed with SBO/Ileus. Per family, she was just discharged on Hospice/Palliative Care Services about a week ago at [facility]. Her initial work up in ED shows elevated WBC level of 15.06 with Neutrophils of 85.1%. Her chemistry is significant for electrolytes abnormality. Her UA meets criteria of UTI. Abdominal/Pelvis CT scan report reads fas dilated colon with liquid stool within the rectum mostly likely represent colonic ileus. Patient is primarily being admitted for Sepsis 2/2 UTI, UTI 2/2 Urinary Incontinence, Ileus 2/2 Severe Constipation/Colonic Incontinence, and Electrolytes Abnormality. She is DNR/DNI. Risk factors: Immobility, Bedbound, Mainly High Protein Diet (Boost), No Stool Softeners and on Anti-cholinergic Medications ( Depakote and Zoloft).
[2018-07-28] MEDS: Metoclopramide 10 MG/2 ML SDV IVPUSH SCH (18:53)
[2018-07-28] MEDS: NS + KCl 20mEq/L 1,000 ML IV SCH (18:55)
[2018-07-28] MEDS: Lactulose Soln 10 GM/15 ML 30 ML UD Cup PO SCH (18:55)
[2018-07-28] MEDS: Potassium Chloride 100 ML IV SCH ×4 (19:03→23:25)
[2018-07-28] MEDS ORDERED: Neostigmine Methylsulfate 1 MG/ML 5 ML Syringe IVPUSH ONE (20:00)
[2018-07-28] MEDS: Saccharomyces Boulardii (Probiotic) 250 MG Cap PO SCH (20:49)
[2018-07-28] MEDS: amLODIPine 5 MG Tab PO SCH (20:49)
[2018-07-28] MEDS: Divalproex Sodium Delayed-Release 125 MG Cap.Sprink PO SCH (20:49)
[2018-07-28] MEDS ORDERED: LACTOSE REDUCED FOOD PO SCH (21:00)
[2018-07-29] MEDS: Potassium Chloride 100 ML IV SCH ×2 (00:31→01:36)
[2018-07-29] MEDS: Lactulose Soln 10 GM/15 ML 30 ML UD Cup PO SCH ×5 (00:32→16:30)
[2018-07-29] MEDS: Metoclopramide 10 MG/2 ML SDV IVPUSH SCH ×4 (00:32→16:29)
[2018-07-29] MEDS: NS + KCl 20mEq/L 1,000 ML IV SCH ×2 (04:41→16:15)
[2018-07-29] MEDS: Hydrochlorothiazide 12.5 MG Cap PO SCH ×2 (06:03→14:08)
[2018-07-29] MEDS ORDERED: Bisacodyl 10 MG Supp RECTAL SCH (09:00)
[2018-07-29] MEDS: Saccharomyces Boulardii (Probiotic) 250 MG Cap PO SCH ×2 (09:20→21:32)
[2018-07-29] MEDS: Lisinopril 10 MG Tab PO SCH (09:20)
[2018-07-29] MEDS: Enoxaparin 40 MG/0.4 ML Syringe SUBCUT SCH (09:21)
[2018-07-29] MEDS: Pantoprazole 40 MG Tab.CR PO SCH (09:21)
[2018-07-29] MEDS: amLODIPine 5 MG Tab PO SCH ×2 (09:21→21:32)
--- NOTE | 2018-07-29 09:25 | PCM.HP ---
H&P History of Present Illness - General Date of Service: 07/29/18 Admit Problem/Dx: Admission Diagnosis/Problem Admission Diagnosis/Problem Ileus Source of Information: Patient, Family, Detention Records, Old Records, Provider, RN Notes Reviewed History Limitations: Reports: Altered Mental Status, Physical Impairment - History of Present Illness Initial Comments - Free Text/Narative: This is a 67 yo white female with past medical hx/o Dementia, GERD, Seizure Disorder, Hx/o C. Diff Colitis, Chronic Constipation, Immobility, Hx/o Ileus, HTN, HLD, MDD, Chronic Skin Ulcers, DM2/Hyperglycemia, Chronic Electrolytes Abnormality, Hx/o Diverticulosis, Hemorrhoids, KOBE, Urinary/Bowel Incontinence, OA, DM2, Encephalopathy 2/2 Trauma and Dysphagia-NDD2 who comes in for evaluation of worsening abdominal distention associated with pain, vomiting, constipation, fever that started a few days ago. Patient is mostly bedbound due to hx/o traumatic brain injury. Her last bowel movement was a couple of days ago. She is known to the hospitalist service from previous admission due to similar presentation, diagnosed with SBO/Ileus. Per family, she was just discharged on Hospice/Palliative Care Services about a week ago at [facility]. Her initial work up in ED shows elevated WBC level of 15.06 with Neutrophils of 85.1%. Her chemistry is significant for electrolytes abnormality. Her UA meets criteria of UTI. Abdominal/Pelvis CT scan report reads as dilated colon with liquid stool within the rectum mostly likely represent colonic ileus. Patient is primarily being admitted for Sepsis 2/2 UTI, UTI 2/2 Urinary Incontinence, Ileus 2/2 Severe Constipation/Colonic Incontinence, and Electrolytes Abnormality. She is DNR/DNI. Risk factors: Immobility, Bedbound, Mainly High Protein Diet (Boost), No Stool Softeners and on Anti-cholinergic Medications ( Depakote and Zoloft). - Related Data Allergies/Adverse Reactions: Allergies Allergy/AdvReac Type Severity Reaction Status Date / Time No Known Allergies Allergy Verified 07/28/18 13:28 Home Medications: Home Meds Acetaminophen [Tylenol Extra Strength] 500 mg PO Q8H PRN 02/22/18 [History] Ondansetron [Zofran ODT] 4 mg PO Q6HR PRN 02/22/18 [History] Sertraline [Zoloft] 150 mg PO DAILY 02/22/18 [History] Pantoprazole [ProTONIX] 40 mg PO DAILY #30 tab.cr 03/18/18 [Rx] Saccharomyces Boulardii [Florastor] 250 mg PO BID #60 cap 03/18/18 [Rx] Crush Medications 1 dose PO ASDIRECTED PRN 04/08/18 [History] Acetaminophen [Tylenol] 650 mg RECTAL Q4HR 07/28/18 [History] Divalproex Sodium [Depakote Sprinkle] 125 mg PO BEDTIME 07/28/18 [History] Menthol/Camphor [Sarna Anti-Itch Lotion] 1 applic TOP ASDIRECTED PRN 07/28/18 [ History] Polyethylene Glycol 3350 [MiraLAX] 1 dose PO DAILY 07/28/18 [History] Past Medical History HEENT History: Reports: Impaired Vision Cardiovascular History: Reports: High Cholesterol, Hypertension Other Cardiovascular History: hyperlipidemia, hypomagnesmia, hypokalemia Respiratory History: Reports: SOB Gastrointestinal History: Reports: Diverticulosis, GERD, Hemorrhoids, Other ( See Below) Other Gastrointestinal History: bowel resection, nausea, ilius, C. 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 Psychiatric History: Reports: Anxiety, Dementia, Depression Endocrine/Metabolic History: Reports: Diabetes, Type II Other Endocrine/Metabolic History: with weight loss pt is not considered diabetic at this time Hematologic History: Reports: Anemia Other Hematologic History: low iron- no transfusions Dermatologic History: Reports: Other (See Below) Other Dermatologic History: non-pressure chronic ulcer of skin - Past Surgical History Female Surgical History: Reports: Hysterectomy, Tubal Ligation Social & Family History - Family History Family Medical History: Unobtainable - Tobacco Use Smoking Status *Q: Unknown Ever Smoked Second Hand Smoke Exposure: No - Caffeine Use Caffeine Use: Reports: None - Recreational Drug Use Recreational Drug Use: No - Living Situation & Occupation Living situation: Reports: , with Spouse Occupation: Disabled H&P Review of Systems - Review of Systems: Review Of Systems: ROS reveals no pertinent complaints other than HPI. Exam - Exam Exam: See Below - Vital Signs Vital Signs: Last Vital Signs Temp 37.2 C 07/29/18 07:58 Pulse 84 07/29/18 07:58 Resp 24 H 07/29/18 07:58 BP 137/70 07/29/18 09:21 Pulse Ox 96 07/29/18 07:58 Weight: 61.774 kg - Exam General: Alert, Cooperative HEENT: Conjunctiva Clear, Nares Patent, Pupils Equal, Contact Lenses Neck: Supple Lungs: Decreased Breath Sounds, Other (poor inspiratory and expiratory effort) GI/Abdominal Exam: Soft, Distended, Abnormal Bowel Sounds, Other (presence of rectal tube ). No: Guarding, Rigid, Rebound (Female) Exam: Deferred Back Exam: Normal Inspection Extremities: Normal Inspection, Non-Tender, No Pedal Edema, Normal Capillary Refill Peripheral Pulses: 2+: Dorsalis Pedis (L), Dorsalis Pedis (R) Skin: Warm, Dry, Intact Neuro Extensive - Mental Status: Alert, Normal Mood/Affect, Slow Response to Commands Neuro Extensive - Motor, Sensory, Reflexes: Abnormal Gait, Other (hase baseline traumatic brain injury) Psychiatric: Normal Affect, Normal Mood - Patient Data Lab Results Last 24 hrs: Laboratory Results - last 24 hr 07/28/18 07/28/18 07/28/18 Range/Units 14:20 14:20 15:00 WBC 15.06 H (3.98-10.04) K/mm3 RBC 5.42 H (3.98-5.22) M/mm3 Hgb 12.2 (11.2-15.7) gm/L Hct 39.6 (34.1-44.9) % MCV 73.1 L (79.4-94.8) fl MCH 22.5 L (25.6-32.2) pg MCHC 30.8 L (32.2-35.5) g/dl RDW Std Deviation 50.4 H (36.4-46.3) fL Plt Count 296 (182-369) K/mm3 MPV 11.5 (9.4-12.3) fl Neut % (Auto) 85.1 H (34.0-71.1) % Lymph % (Auto) 7.4 L (19.3-51.7) % Creek % (Auto) 7.2 (4.7-12.5) % Eos % (Auto) 0 L (0.7-5.8) Baso % (Auto) 0.1 (0.1-1.2) % Neut # (Auto) 12.82 H (1.56-6.13) K/mm3 Lymph # (Auto) 1.12 L (1.18-3.74) K/mm3 Creek # (Auto) 1.08 H (0.24-0.36) K/mm3 Eos # (Auto) 0.00 L (0.04-0.36) K/mm3 Baso # (Auto) 0.01 (0.01-0.08) K/mm3 Manual Slide Review Abnormal smear Sodium 151 H (136-145) mEq/L Potassium 3.0 L (3.5-5.1) mEq/L Chloride 112 H (98-107) mEq/L Carbon Dioxide 27 (21-32) mEq/L Anion Gap 15.0 (5-15) BUN 25 H (7-18) mg/dL Creatinine 0.7 (0.55-1.02) mg/dL Est Cr Clr Drug Dosing TNP Estimated GFR (MDRD) > 60 (>60) mL/min BUN/Creatinine Ratio 35.7 H (14-18) Glucose 152 H (80-115) mg/dL Lactic Acid (0.4-2.0) mmol/L Calcium 9.3 (8.5-10.1) mg/dL Magnesium (1.8-2.4) mg/dl Total Bilirubin 0.3 (0.2-1.0) mg/dL AST 13 L (15-37) U/L ALT 19 (14-59) U/L Alkaline Phosphatase 85 (46-116) U/L Total Protein 7.6 (6.4-8.2) g/dl Albumin 3.4 (3.4-5.0) g/dl Globulin 4.2 gm/dL Albumin/Globulin Ratio 0.8 L (1-2) Lipase 221 (73-393) U/L Urine Color Yellow (Yellow) Urine Appearance Cloudy H (Clear) Urine pH 6.0 (5.0-8.0) Ur Specific [place] 1.025 (1.005-1.030) Urine Protein 1+ H (Negative) Urine Glucose (UA) Negative (Negative) Urine Ketones Negative (Negative) Urine Occult Blood 1+ H (Negative) Urine Nitrite Positive H (Negative) Urine Bilirubin Negative (Negative) Urine Urobilinogen 0.2 (0.2-1.0) Ur Leukocyte Esterase 2+ H (Negative) Urine RBC 10-20 H (0-5) /hpf Urine WBC 30-40 H (0-5) /hpf Urine WBC Clumps Many (NOT SEEN) /hpf Ur Epithelial Cells 0-5 (0-5) /hpf Urine Bacteria Many H (FEW) /hpf Hyaline Casts 0-5 (0-5) /lpf Urine Mucus Few (FEW) /hpf MRSA (PCR) 07/28/18 07/28/18 07/29/18 Range/Units 17:10 18:10 06:47 WBC 12.03 H (3.98-10.04) K/mm3 RBC 5.08 (3.98-5.22) M/mm3 Hgb 11.3 (11.2-15.7) gm/L Hct 37.8 (34.1-44.9) % MCV 74.4 L (79.4-94.8) fl MCH 22.2 L (25.6-32.2) pg MCHC 29.9 L (32.2-35.5) g/dl RDW Std Deviation 51.4 H (36.4-46.3) fL Plt Count 277 (182-369) K/mm3 MPV 11.9 (9.4-12.3) fl Neut % (Auto) 78.6 H (34.0-71.1) % Lymph % (Auto) 15.5 L (19.3-51.7) % Creek % (Auto) 5.6 (4.7-12.5) % Eos % (Auto) 0.1 L (0.7-5.8) Baso % (Auto) 0.1 (0.1-1.2) % Neut # (Auto) 9.47 H (1.56-6.13) K/mm3 Lymph # (Auto) 1.86 (1.18-3.74) K/mm3 Creek # (Auto) 0.67 H (0.24-0.36) K/mm3 Eos # (Auto) 0.01 L (0.04-0.36) K/mm3 Baso # (Auto) 0.01 (0.01-0.08) K/mm3 Manual Slide Review Abnormal smear Sodium (136-145) mEq/L Potassium (3.5-5.1) mEq/L Chloride (98-107) mEq/L Carbon Dioxide (21-32) mEq/L Anion Gap (5-15) BUN (7-18) mg/dL Creatinine (0.55-1.02) mg/dL Est Cr Clr Drug Dosing Estimated GFR (MDRD) (>60) mL/min BUN/Creatinine Ratio (14-18) Glucose (80-115) mg/dL Lactic Acid 1.3 (0.4-2.0) mmol/L Calcium (8.5-10.1) mg/dL Magnesium (1.8-2.4) mg/dl Total Bilirubin (0.2-1.0) mg/dL AST (15-37) U/L ALT (14-59) U/L Alkaline Phosphatase (46-116) U/L Total Protein (6.4-8.2) g/dl Albumin (3.4-5.0) g/dl Globulin gm/dL Albumin/Globulin Ratio (1-2) Lipase (73-393) U/L Urine Color (Yellow) Urine Appearance (Clear) Urine pH (5.0-8.0) Ur Specific [place] (1.005-1.030) Urine Protein (Negative) Urine Glucose (UA) (Negative) Urine Ketones (Negative) Urine Occult Blood (Negative) Urine Nitrite (Negative) Urine Bilirubin (Negative) Urine Urobilinogen (0.2-1.0) Ur Leukocyte Esterase (Negative) Urine RBC (0-5) /hpf Urine WBC (0-5) /hpf Urine WBC Clumps (NOT SEEN) /hpf Ur Epithelial Cells (0-5) /hpf Urine Bacteria (FEW) /hpf Hyaline Casts (0-5) /lpf Urine Mucus (FEW) /hpf MRSA (PCR) Negative 07/29/18 Range/Units 06:47 WBC (3.98-10.04) K/mm3 RBC (3.98-5.22) M/mm3 Hgb (11.2-15.7) gm/L Hct (34.1-44.9) % MCV (79.4-94.8) fl MCH (25.6-32.2) pg MCHC (32.2-35.5) g/dl RDW Std Deviation (36.4-46.3) fL Plt Count (182-369) K/mm3 MPV (9.4-12.3) fl Neut % (Auto) (34.0-71.1) % Lymph % (Auto) (19.3-51.7) % Creek % (Auto) (4.7-12.5) % Eos % (Auto) (0.7-5.8) Baso % (Auto) (0.1-1.2) % Neut # (Auto) (1.56-6.13) K/mm3 Lymph # (Auto) (1.18-3.74) K/mm3 Creek # (Auto) (0.24-0.36) K/mm3 Eos # (Auto) (0.04-0.36) K/mm3 Baso # (Auto) (0.01-0.08) K/mm3 Manual Slide Review Sodium 148 H (136-145) mEq/L Potassium 4.0 (3.5-5.1) mEq/L Chloride 113 H (98-107) mEq/L Carbon Dioxide 24 (21-32) mEq/L Anion Gap 15.0 (5-15) BUN 15 (7-18) mg/dL Creatinine 0.7 (0.55-1.02) mg/dL Est Cr Clr Drug Dosing 76.05 Estimated GFR (MDRD) > 60 (>60) mL/min BUN/Creatinine Ratio 21.4 H (14-18) Glucose 127 H (80-115) mg/dL Lactic Acid (0.4-2.0) mmol/L Calcium 9.5 (8.5-10.1) mg/dL Magnesium 2.1 (1.8-2.4) mg/dl Total Bilirubin (0.2-1.0) mg/dL AST (15-37) U/L ALT (14-59) U/L Alkaline Phosphatase (46-116) U/L Total Protein (6.4-8.2) g/dl Albumin (3.4-5.0) g/dl Globulin gm/dL Albumin/Globulin Ratio (1-2) Lipase (73-393) U/L Urine Color (Yellow) Urine Appearance (Clear) Urine pH (5.0-8.0) Ur Specific [place] (1.005-1.030) Urine Protein (Negative) Urine Glucose (UA) (Negative) Urine Ketones (Negative) Urine Occult Blood (Negative) Urine Nitrite (Negative) Urine Bilirubin (Negative) Urine Urobilinogen (0.2-1.0) Ur Leukocyte Esterase (Negative) Urine RBC (0-5) /hpf Urine WBC (0-5) /hpf Urine WBC Clumps (NOT SEEN) /hpf Ur Epithelial Cells (0-5) /hpf Urine Bacteria (FEW) /hpf Hyaline Casts (0-5) /lpf Urine Mucus (FEW) /hpf MRSA (PCR) Result Diagrams: 07/30/18 06:40 07/30/18 06:40 Jero Results Last 24 hrs: Microbiology 07/28/18 15:00 Urine Culture - Preliminary Urine, Catheterized Gram Negative Rods Problem List Initiated/Reviewed/Updated: Yes Orders Last 24hrs: Active Orders 24 hr Category Date Time Status Admission Status [Patient Status] [ADT] Routine ADT 07/28/18 17:08 Active Insert Gil Catheter [Insert Urinary Catheter] [OM.PC] Care 07/28/18 14:30 Ordered Stat RT Aerosol Therapy [RC] ASDIRECTED Care 07/28/18 17:24 Active VTE/DVT Education [RC] DAILY Care 07/28/18 17:21 Active Vital Signs [RC] Q4HR Care 07/28/18 17:21 Active Consult to Case Management/Political Cartoonist [CONS] Cons 07/28/18 17:21 Active Routine Consult to Spiritual Care [CONS] Routine Cons 07/28/18 17:21 Active Mechanical Soft Diet [DIET] Diet 07/29/18 Breakfast Active National Dysphagia Diet [DIET] Diet 07/28/18 Dinner Active BASIC METABOLIC PANEL,BMP [CHEM] AM Lab 07/30/18 05:11 Ordered BASIC METABOLIC PANEL,BMP [CHEM] AM Lab 07/31/18 05:11 Ordered CBC WITH AUTO DIFF [HEME] AM Lab 07/30/18 05:11 Ordered CBC WITH AUTO DIFF [HEME] AM Lab 07/31/18 05:11 Ordered CULTURE BLOOD [BC] Stat Lab 07/28/18 17:10 Received CULTURE BLOOD [BC] Stat Lab 07/28/18 17:21 Received CULTURE URINE [RM] Stat Lab 07/28/18 15:00 Results MAGNESIUM [CHEM] AM Lab 07/30/18 05:11 Ordered MAGNESIUM [CHEM] AM Lab 07/31/18 05:11 Ordered Acetaminophen [Tylenol] Med 07/28/18 17:21 Active 650 mg PO Q4H PRN Acetaminophen/HYDROcodone [[place] 325-5 MG] Med 07/28/18 17:21 Active 1 tab PO Q4H PRN Albuterol/Ipratropium [DuoNeb 3.0-0.5 MG/3 ML] Med 07/28/18 17:21 Active 3 ml NEB Q4H PRN Bisacodyl [Dulcolax] Med 07/29/18 09:00 Active 10 mg RECTAL DAILY Divalproex Sodium [Depakote Sprinkle] Med 07/28/18 21:00 Active 125 mg PO BEDTIME Enoxaparin [Lovenox] Med 07/29/18 09:00 Active 40 mg SUBCUT DAILY HYDROmorphone [Dilaudid] Med 07/28/18 17:21 Active 0.25 mg IVPUSH Q2H PRN LORazepam [Ativan] Med 07/28/18 17:19 Active 2 mg IVPUSH Q4H PRN Lactulose [Cephulac] Med 07/28/18 17:30 Active 20 gm PO Q6H Lisinopril [Prinivil] Med 07/29/18 09:00 Active 10 mg PO DAILY Metoclopramide [Reglan] Med 07/28/18 17:30 Active 10 mg IVPUSH Q6H Metoprolol Tartrate [Lopressor] Med 07/28/18 17:19 Active 5 mg IVPUSH Q4H PRN NS + KCl 20mEq/L [Normal Saline with 20 mEq KCl] 1,000 Med 07/28/18 18:45 Active ml IV ASDIRECTED Ondansetron [Zofran ODT] Med 07/28/18 17:18 Active 4 mg PO Q6HR PRN Pantoprazole [ProTONIX] Med 07/29/18 09:00 Active 40 mg PO DAILY Patient's Own Medication [Ptom] Med 07/28/18 17:18 Active 0 each TOP ASDIRECTED PRN Pharmacy to Dose - Magnesium R [Pharmacy to Dose - Med 07/28/18 17:30 Active Magnesium Replacement] 0 dose .XX ASDIRECTED PRN Pharmacy to Dose - Potassium R [Pharmacy to Dose - Med 07/28/18 17:30 Active Potassium Replacement] 0 dose .XX ASDIRECTED PRN Remove Patch Med 08/04/18 18:00 Active 1 ea TRDERM Q7D Saccharomyces Boulardii [Florastor] Med 07/28/18 21:00 Active 250 mg PO BID Sodium Chloride 0.9% [Saline Flush] Med 07/28/18 13:54 Active 10 ml FLUSH ASDIRECTED PRN amLODIPine [Norvasc] Med 07/28/18 21:00 Active 5 mg PO BID cefTRIAXone [Rocephin] 2 gm Med 07/28/18 16:00 Active Sodium Chloride 0.9% [Normal Saline] 100 ml IV Q24H hydrALAZINE [Apresoline] Med 07/28/18 17:19 Active 20 mg IVPUSH Q4H PRN hydroCHLOROthiazide Med 07/29/18 06:00 Active 12.5 mg PO BIDDIURETIC Blood Culture x2 Reflex Set [OM.PC] Stat Oth 07/28/18 15:46 Ordered ED Antiemetic Medication Reflex [OM.PC] Stat Oth 07/28/18 13:54 Ordered Peripheral IV Insertion Adult [OM.PC] Stat Oth 07/28/18 13:54 Ordered Rectal Tube Insertion [OM.PC] Routine Oth 07/28/18 16:38 Ordered Resuscitation Status Routine Resus Stat 07/28/18 18:09 Ordered Medication Orders Acetaminophen (Tylenol) 650 mg PO Q4H PRN PRN Reason: Pain (Mild 1-3)/fever Hydrocodone Bitart/Acetaminophen ([place] 325-5 Mg) 1 tab PO Q4H PRN PRN Reason: Pain (moderate 4-6) Albuterol/Ipratropium (Duoneb 3.0-0.5 Mg/3 Ml) 3 ml NEB Q4H PRN PRN Reason: Shortness Of Breath/wheezing Amlodipine Besylate (Norvasc) 5 mg PO BID STEFANIE Last Admin: 07/29/18 09:21 Dose: 5 mg Admin: 07/28/18 20:49 Dose: 5 mg Bisacodyl (Dulcolax) 10 mg RECTAL DAILY [facility] Last Admin: 07/29/18 09:21 Dose: Divalproex Sodium (Depakote Sprinkle) 125 mg PO BEDTIME [facility] Last Admin: 07/28/18 20:49 Dose: 125 mg Enoxaparin Sodium (Lovenox) 40 mg SUBCUT DAILY [facility] Last Admin: 07/29/18 09:21 Dose: 40 mg Hydralazine HCl (Apresoline) 20 mg IVPUSH Q4H PRN PRN Reason: Hypertension Hydrochlorothiazide (Hydrochlorothiazide) 12.5 mg PO BIDDIURETIC [facility] Last Admin: 07/29/18 06:03 Dose: 12.5 mg Hydromorphone HCl (Dilaudid) 0.25 mg IVPUSH Q2H PRN PRN Reason: Pain (severe 7-10) Ceftriaxone Sodium 2 gm/ (Sodium Chloride) 100 mls @ 200 mls/hr IV Q24H [facility] Last Admin: 07/28/18 16:05 Dose: 200 mls/hr Potassium Chloride/Sodium Chloride (Normal Saline With 20 Meq Kcl) 1,000 mls @ 100 mls/hr IV ASDIRECTED [facility] Last Admin: 07/29/18 04:41 Dose: 100 mls/hr Infusion: 07/29/18 04:41 Dose: 100 mls/hr Admin: 07/28/18 18:55 Dose: 100 mls/hr Lactulose (Cephulac) 20 gm PO Q6H [facility] Last Admin: 07/29/18 06:03 Dose: 20 gm Admin: 07/29/18 00:45 Dose: Not Given Admin: 07/28/18 18:55 Dose: 20 gm Lisinopril (Prinivil) 10 mg PO DAILY [facility] Last Admin: 07/29/18 09:20 Dose: 10 mg Lorazepam (Ativan) 2 mg IVPUSH Q4H PRN PRN Reason: Seizures Magnesium Sulfate (Pharmacy To Dose - Magnesium Replacement) 0 dose .XX ASDIRECTED PRN PRN Reason: RX TO WATCH MAG Metoclopramide HCl (Reglan) 10 mg IVPUSH Q6H [facility] Last Admin: 07/29/18 06:03 Dose: 10 mg Admin: 07/29/18 00:32 Dose: 10 mg Admin: 07/28/18 18:53 Dose: 10 mg Metoprolol Tartrate (Lopressor) 5 mg IVPUSH Q4H PRN PRN Reason: Tachycardia Miscellaneous Information (Remove Patch) 1 ea TRDERM Q7D [facility] Stop: 08/04/18 18:01 Ondansetron HCl (Zofran Odt) 4 mg PO Q6HR PRN PRN Reason: Nausea Pantoprazole Sodium (Protonix) 40 mg PO DAILY [facility] Last Admin: 07/29/18 09:21 Dose: 40 mg Sarna Anti-Itch Lotion Pt's Own Men 0 each TOP ASDIRECTED PRN PRN Reason: Dryness Potassium Chloride (Pharmacy To Dose - Potassium Replacement) 0 dose .XX ASDIRECTED PRN PRN Reason: RX TO WATCH K Saccharomyces Boulardii (Florastor) 250 mg PO BID [facility] Last Admin: 07/29/18 09:20 Dose: 250 mg Admin: 07/28/18 20:49 Dose: 250 mg Sodium Chloride (Saline Flush) 10 ml FLUSH ASDIRECTED PRN PRN Reason: Keep Vein Open Last Admin: 07/28/18 14:40 Dose: 10 ml Assessment/Plan Comment:: Assessment/Plan: Acute: Sepsis - 2/2 UTI - UA strongly suggestive of UTI - Carries a hx/o urinary incontinence - HR of 102; RR of 24; WB of 15K - Blood Culture x2 and IV Abx - IV Hydration UTI - Carries a hx/o E. Coli and Beta Group G Strep - Continue IV Rocephin Daily - Awaiting UA Cx/Sx - Immobility and Urinary Incontinence Ileus - 2/2 Bowel Incontinence and Severe Constipation - Risk factors: Immobility, High Protein Diet, Lack of Stool Softeners, Chronic Constipation and Medications Induced - Bowel Prep, Prokinetic Agents, and Rectal Tube Electrolytes Abnormality - Na 151--> 148; K 3.0 --> 4 - 2/2 inadequate oral intake - Replete and monitor Malignant HTN - Document BPs 191/97 and 161/78 mmHg - Resume Home BP meds - Clonidine Patch x1, CCB, HCTZ and PRN Vasodilators Chronic: Dementia, GERD, Seizure Disorder, Hx/o C. Diff Colitis, Chronic Constipation, Immobility, Hx/o Ileus, HTN, HLD, MDD, Chronic Skin Ulcers, DM2/ Hyperglycemia, Chronic Electrolytes Abnormality, Hx/o Diverticulosis, Hemorrhoids, KOBE, Urinary/Bowel Incontinence, OA, DM2, Encephalopathy 2/2 Trauma and Dysphagia-NDD2 Plan: Admit to [facility] Routine AM Labs Resume Home Meds Aspiration and Fall Precautions DVT/GI Prophylaxis; PPI and Lovenox SubQ daily SW/CM for d/c planning Hold off GS consult Code status: DNR/DNI
[2018-07-29] MEDS ORDERED: Neostigmine Methylsulfate 10 MG/10 ML MDV IM SCH (12:45)
[2018-07-29] MEDS: [UNRECOGNIZED DRUG - OTHER] SCH ×2 (14:08→21:38)
[2018-07-29] MEDS: MINERAL OIL SCH ×2 (14:08→21:38)
[2018-07-29] MEDS ORDERED: Mineral Oil 30 ML UD Cup PO SCH (15:00)
[2018-07-29] MEDS: cefTRIAXone 2 GM in Sodium Chloride 0.9% 100 ML IV SCH (16:12)
[2018-07-29] MEDS: Divalproex Sodium Delayed-Release 125 MG Cap.Sprink PO SCH (21:32)
[2018-07-29] MEDS: Neostigmine Methylsulfate 10 MG/10 ML MDV IM SCH (21:32)
[2018-07-30] MEDS: NS + KCl 20mEq/L 1,000 ML IV SCH ×3 (00:28→20:51)
[2018-07-30] MEDS: Lactulose Soln 10 GM/15 ML 30 ML UD Cup PO SCH ×5 (00:28→23:20)
[2018-07-30] MEDS: Metoclopramide 10 MG/2 ML SDV IVPUSH SCH ×5 (00:28→23:20)
[2018-07-30] MEDS: Neostigmine Methylsulfate 10 MG/10 ML MDV IM SCH ×3 (02:41→13:59)
[2018-07-30] MEDS: Hydrochlorothiazide 12.5 MG Cap PO SCH ×2 (05:52→14:00)
[2018-07-30] MEDS: Saccharomyces Boulardii (Probiotic) 250 MG Cap PO SCH ×2 (08:27→21:13)
[2018-07-30] MEDS: Enoxaparin 40 MG/0.4 ML Syringe SUBCUT SCH (08:27)
[2018-07-30] MEDS: Pantoprazole 40 MG Tab.CR PO SCH (08:27)
[2018-07-30] MEDS: amLODIPine 5 MG Tab PO SCH ×2 (08:27→21:13)
[2018-07-30] MEDS: Lisinopril 10 MG Tab PO SCH (08:27)
[2018-07-30] MEDS: [UNRECOGNIZED DRUG - OTHER] SCH ×3 (08:28→21:14)
[2018-07-30] MEDS: MINERAL OIL SCH ×3 (08:28→21:14)
[2018-07-30] MEDS: cefTRIAXone 2 GM in Sodium Chloride 0.9% 100 ML IV SCH (15:05)
--- NOTE | 2018-07-30 15:29 | CR ---
Abdomen: Supine view the abdomen was obtained. Comparison: Prior abdominal and pelvic CT study of 07/28/18. Gas dilated splenic flexure and transverse colon is noted. Lesser gaseous dilatation is noted of the sigmoid colon. These findings are slightly improved from previous exam. Scattered gas within nondilated small bowel is seen. Vascular calcification is noted. Mild scoliosis and degenerative change is seen within the spine. Impression: 1. Gaseous dilatation of splenic flexure and transverse colon. Less gaseous dilatation of sigmoid colon. Findings compatible with continuing ileus which appears slightly improved from prior CT exam. 2. Other incidental findings as noted above. Diagnostic code #3
--- NOTE | 2018-07-30 15:45 | PCM.PN ---
- General Info Date of Service: 07/30/18 Admission Dx/Problem (Free Text): Admission Diagnosis/Problem Admission Diagnosis/Problem Ileus Subjective Update: Follow Up Functional Status: Reports: Tolerating Diet, Urinating. Denies: Pain Controlled , Ambulating, New Symptoms - Review of Systems General: Denies: Fever, Chills HEENT: Reports: No Symptoms Pulmonary: Denies: Shortness of Breath Cardiovascular: Denies: Chest Pain, Dyspnea on Exertion, Lightheadedness Gastrointestinal: Reports: Diarrhea, Flatus. Denies: Abdominal Pain, Decreased Appetite, Nausea, Vomiting Genitourinary: Reports: No Symptoms Musculoskeletal: Reports: No Symptoms Skin: Denies: Cyanosis Neurological: Reports: Weakness, Gait Disturbance. Denies: Confusion Psychiatric: Denies: Depression, Anxiety, Agitation, Hallucinations Systems Review Comment:: No overnight or acute issues. She rested well last night. She feels much better. Her belly is now soft and flat after multiple bowel movements. She remains afebrile with resolve leukocytosis. Her UA shows E. coli sensitive to Rocephin. - Patient Data Vitals - Most Recent: Last Vital Signs Temp 36.7 C 07/30/18 07:31 Pulse 54 L 07/30/18 07:31 Resp 14 07/30/18 07:31 BP 106/57 L 07/30/18 08:27 Pulse Ox 97 07/30/18 07:31 Weight - Most Recent: 61.774 kg I&O - Last 24 Hours: Intake & Output 07/30/18 07/30/18 07/30/18 06:59 14:59 22:59 Intake Total 1518 180 260 Balance 1518 180 260 Lab Results Last 24 Hours: Laboratory Results - last 24 hr 07/30/18 07/30/18 Range/Units 06:40 06:40 WBC 6.97 (3.98-10.04) K/mm3 RBC 4.26 (3.98-5.22) M/mm3 Hgb 9.5 L D (11.2-15.7) gm/L Hct 32.4 L (34.1-44.9) % MCV 76.1 L (79.4-94.8) fl MCH 22.3 L (25.6-32.2) pg MCHC 29.3 L (32.2-35.5) g/dl RDW Std Deviation 51.0 H (36.4-46.3) fL Plt Count 209 (182-369) K/mm3 MPV 11.6 (9.4-12.3) fl Neut % (Auto) 72.5 H (34.0-71.1) % Lymph % (Auto) 20.7 (19.3-51.7) % [place] % (Auto) 5.9 (4.7-12.5) % Eos % (Auto) 0.7 (0.7-5.8) Baso % (Auto) 0.1 (0.1-1.2) % Neut # (Auto) 5.05 (1.56-6.13) K/mm3 Lymph # (Auto) 1.44 (1.18-3.74) K/mm3 [place] # (Auto) 0.41 H (0.24-0.36) K/mm3 Eos # (Auto) 0.05 (0.04-0.36) K/mm3 Baso # (Auto) 0.01 (0.01-0.08) K/mm3 Manual Slide Review Abnormal smear Sodium 146 H (136-145) mEq/L Potassium 4.1 (3.5-5.1) mEq/L Chloride 112 H (98-107) mEq/L Carbon Dioxide 26 (21-32) mEq/L Anion Gap 12.1 (5-15) BUN 14 (7-18) mg/dL Creatinine 0.7 (0.55-1.02) mg/dL Est Cr Clr Drug Dosing 75.95 mL/min Estimated GFR (MDRD) > 60 (>60) mL/min BUN/Creatinine Ratio 20.0 H (14-18) Glucose 95 (80-115) mg/dL Calcium 9.0 (8.5-10.1) mg/dL Magnesium 1.9 (1.8-2.4) mg/dl Jero Results Last 24 Hours: Microbiology 07/28/18 15:00 Urine Culture - Final Urine, Catheterized Escherichia Coli 07/28/18 17:21 Aerobic Blood Culture - Preliminary Blood - Venous - Lab Draw NO GROWTH AFTER 1 DAY Anaerobic Blood Culture - Preliminary NO GROWTH AFTER 1 DAY 07/28/18 17:10 Aerobic Blood Culture - Preliminary Blood - Venous NO GROWTH AFTER 1 DAY Anaerobic Blood Culture - Preliminary NO GROWTH AFTER 1 DAY Med Orders - Current: Current Medications Acetaminophen (Tylenol) 650 mg PO Q4H PRN PRN Reason: Pain (Mild 1-3)/fever Hydrocodone Bitart/Acetaminophen ([place] 325-5 Mg) 1 tab PO Q4H PRN PRN Reason: Pain (moderate 4-6) Albuterol/Ipratropium (Duoneb 3.0-0.5 Mg/3 Ml) 3 ml NEB Q4H PRN PRN Reason: Shortness Of Breath/wheezing Amlodipine Besylate (Norvasc) 5 mg PO BID [facility] Last Admin: 07/30/18 08:27 Dose: 5 mg Divalproex Sodium (Depakote Sprinkle) 125 mg PO BEDTIME [facility] Last Admin: 07/29/18 21:32 Dose: 125 mg Enoxaparin Sodium (Lovenox) 40 mg SUBCUT DAILY [facility] Last Admin: 07/30/18 08:27 Dose: 40 mg Hydralazine HCl (Apresoline) 20 mg IVPUSH Q4H PRN PRN Reason: Hypertension Hydrochlorothiazide (Hydrochlorothiazide) 12.5 mg PO BIDDIURETIC [facility] Last Admin: 07/30/18 14:00 Dose: 12.5 mg Hydromorphone HCl (Dilaudid) 0.25 mg IVPUSH Q2H PRN PRN Reason: Pain (severe 7-10) Ceftriaxone Sodium 2 gm/ (Sodium Chloride) 100 mls @ 200 mls/hr IV Q24H [facility] Last Admin: 07/30/18 15:05 Dose: 200 mls/hr Potassium Chloride/Sodium Chloride (Normal Saline With 20 Meq Kcl) 1,000 mls @ 100 mls/hr IV ASDIRECTED [facility] Last Admin: 07/30/18 10:38 Dose: 100 mls/hr Lactulose (Cephulac) 20 gm PO Q6H [facility] Last Admin: 07/30/18 10:39 Dose: 20 gm Lisinopril (Prinivil) 10 mg PO DAILY [facility] Last Admin: 07/30/18 08:27 Dose: 10 mg Lorazepam (Ativan) 2 mg IVPUSH Q4H PRN PRN Reason: Seizures Magnesium Sulfate (Pharmacy To Dose - Magnesium Replacement) 0 dose .XX ASDIRECTED PRN PRN Reason: RX TO WATCH MAG Metoclopramide HCl (Reglan) 10 mg IVPUSH Q6H [facility] Last Admin: 07/30/18 10:39 Dose: 10 mg Metoprolol Tartrate (Lopressor) 5 mg IVPUSH Q4H PRN PRN Reason: Tachycardia Miscellaneous Information (Remove Patch) 1 ea TRDERM Q7D [facility] Stop: 08/04/18 18:01 Mineral Oil Enema - (Store Room) 0 each .XX TID [facility] Stop: 07/30/18 21:01 Last Admin: 07/30/18 08:28 Dose: 1 each Ondansetron HCl (Zofran Odt) 4 mg PO Q6HR PRN PRN Reason: Nausea Pantoprazole Sodium (Protonix) 40 mg PO DAILY [facility] Last Admin: 07/30/18 08:27 Dose: 40 mg Sarna Anti-Itch Lotion Pt's Own Men 0 each TOP ASDIRECTED PRN PRN Reason: Dryness Potassium Chloride (Pharmacy To Dose - Potassium Replacement) 0 dose .XX ASDIRECTED PRN PRN Reason: RX TO WATCH K Saccharomyces Boulardii (Florastor) 250 mg PO BID [facility] Last Admin: 07/30/18 08:27 Dose: 250 mg Sodium Chloride (Saline Flush) 10 ml FLUSH ASDIRECTED PRN PRN Reason: Keep Vein Open Last Admin: 07/28/18 14:40 Dose: 10 ml Discontinued Medications Bisacodyl (Dulcolax) 10 mg RECTAL DAILY [facility] Last Admin: 07/29/18 09:21 Dose: Not Given Clonidine HCl (Catapres-Tts 3) 0.3 mg TRDERM Q7D ONE Stop: 07/28/18 17:31 Last Admin: 07/28/18 18:55 Dose: 0.3 mg Sodium Chloride (Normal Saline) 1,000 mls @ 125 mls/hr IV ASDIRECTED [facility] Last Admin: 07/28/18 14:40 Dose: 125 mls/hr Dextrose/Water (Dextrose 5% In Water) 1,000 mls @ 100 mls/hr IV ASDIRECTED [facility] Potassium Chloride 20 meq/ (Dextrose/Water) 1,010 mls @ 101 mls/hr IV ASDIRECTED [facility] Potassium Chloride (Kcl 10 Meq In Water 100 Ml) 100 mls @ 100 mls/hr IV Q1H [facility] Stop: 07/29/18 00:59 Last Admin: 07/29/18 01:36 Dose: 100 mls/hr Iopamidol (Isovue-370 (76%)) 100 ml IV ONETIME ONE Stop: 07/28/18 15:12 Last Admin: 07/28/18 15:30 Dose: 100 ml Mineral Oil (Mineral Oil) 30 ml PO TID [facility] Stop: 07/31/18 09:01 Neostigmine Methylsulfate (Neostigmine Methylsulfate) 0.5 mg IM Q6H [facility] Stop: 07/30/18 12:46 Last Admin: 07/29/18 14:08 Dose: 0.5 mg Neostigmine Methylsulfate (Neostigmine Methylsulfate) 0.5 mg IM Q6H [facility] Stop: 07/30/18 14:01 Last Admin: 07/30/18 13:59 Dose: 0.5 mg Non-Formulary Medication (Acetaminophen) 500 mg PO Q8H PRN PRN Reason: Pain Non-Formulary Medication (Lactose-Reduced Food [Boost Plus]) 120 ml PO QID [facility] Sodium Chloride (Saline Flush) 10 ml FLUSH ONETIME ONE Stop: 07/28/18 15:12 Last Admin: 07/28/18 15:31 Dose: 10 ml - Exam General: Alert, Cooperative, No Acute Distress, Other (Baseline slow in response ) HEENT: Pupils Equal, Pupils Reactive, Mucous Membr. Moist/[place] Neck: Supple Lungs: Normal Respiratory Effort, Decreased Breath Sounds Cardiovascular: Regular Rate, Regular Rhythm GI/Abdominal Exam: Normal Bowel Sounds, Soft, No Organomegaly, No Mass (Female) Exam: Deferred Back Exam: Normal Inspection Extremities: Normal Inspection, Normal Range of Motion, Non-Tender, No Pedal Edema, Normal Capillary Refill Peripheral Pulses: 2+: Dorsalis Pedis (L), Dorsalis Pedis (R) Skin: Warm, Dry, Intact Neurological: No New Focal Deficit (baseline immobility ). No: Normal Gait Psy/Mental Status: Alert. No: Normal Affect - Problem List Review Problem List Initiated/Reviewed/Updated: Yes - My Orders Last 24 Hours: My Active Orders 07/29/18 18:45 Up to Chair [RC] ASDIRECTED 07/31/18 05:11 BASIC METABOLIC PANEL,BMP [CHEM] AM CBC WITH AUTO DIFF [HEME] AM MAGNESIUM [CHEM] AM 08/04/18 18:00 Remove Patch 1 kaley HAHN Q7D - Plan Plan:: Assessment/Plan: Acute: UTI 2/2 E. coli - Carries a hx/o E. Coli and Beta Group G Strep - Continue IV Rocephin Daily - UA shows sensitive to Rocephin - Immobility and Urinary Incontinence Ileus, Improving - 2/2 Bowel Incontinence and Severe Constipation - Risk factors: Immobility, High Protein Diet, Lack of Stool Softeners, Chronic Constipation and Medications Induced - Continue Bowel Prep, Prokinetic Agents, and Rectal Tube Resolved: S/p Sepsis - 2/2 UTI - UA strongly suggestive of UTI - Carries a hx/o urinary incontinence - HR of 102; RR of 24; WB of 15K - Blood Culture x2 and IV Abx - IV Hydration S/p Electrolytes Abnormality - Na 151--> 148; K 3.0 --> 4 - 2/2 inadequate oral intake - Replete and monitor S/p Malignant HTN - Document BPs 191/97 and 161/78 mmHg - Resume Home BP meds - Clonidine Patch x1, CCB, HCTZ and PRN Vasodilators Chronic: Dementia, GERD, Seizure Disorder, Hx/o C. Diff Colitis, Chronic Constipation, Immobility, Hx/o Ileus, HTN, HLD, MDD, Chronic Skin Ulcers, DM2/ Hyperglycemia, Chronic Electrolytes Abnormality, Hx/o Diverticulosis, Hemorrhoids, KOBE, Urinary/Bowel Incontinence, OA, DM2, Encephalopathy 2/2 Trauma and Dysphagia-NDD2 Plan: She remains clinically stable Routine AM Labs Aspiration and Fall Precautions DVT/GI Prophylaxis; PPI and Lovenox SubQ daily SW/CM for d/c planning Code status: DNR/DNI Possible discharge this weekend
[2018-07-30] MEDS: Divalproex Sodium Delayed-Release 125 MG Cap.Sprink PO SCH (21:13)
[2018-07-31] MEDS: Lactulose Soln 10 GM/15 ML 30 ML UD Cup PO SCH ×5 (06:50→23:50)
[2018-07-31] MEDS: Metoclopramide 10 MG/2 ML SDV IVPUSH SCH ×4 (06:50→23:50)
[2018-07-31] MEDS: Hydrochlorothiazide 12.5 MG Cap PO SCH ×3 (06:50→13:40)
[2018-07-31] MEDS: NS + KCl 20mEq/L 1,000 ML IV SCH ×2 (06:59→16:57)
--- NOTE | 2018-07-31 07:19 | PCM.PN ---
- General Info Date of Service: 07/31/18 Admission Dx/Problem (Free Text): Admission Diagnosis/Problem Admission Diagnosis/Problem Ileus Subjective Update: Follow Up Functional Status: Reports: Pain Controlled, Tolerating Diet, Urinating. Denies : New Symptoms - Review of Systems General: Denies: Fever, Chills HEENT: Reports: No Symptoms. Denies: Visual Changes Cardiovascular: Denies: Chest Pain, Dyspnea on Exertion, Lightheadedness Gastrointestinal: Denies: Abdominal Pain, Decreased Appetite, Nausea, Vomiting Genitourinary: Reports: No Symptoms Skin: Denies: Cyanosis, Mottled, Pallor, Diaphoresis, Bruising Neurological: Reports: Difficulty Walking, Weakness, Gait Disturbance. Denies: Confusion Psychiatric: Denies: Depression, Anxiety, Agitation, Hallucinations Systems Review Comment:: No significant overnight issues. However she refused some of her night pills per day nurse. Her Hgb is fairly stable. Her chemistry is remarkable for for Mg level of 1.7. - Patient Data Vitals - Most Recent: Last Vital Signs Temp 36.7 C 07/30/18 19:46 Pulse 64 07/30/18 21:07 Resp 20 07/30/18 19:46 BP 113/60 07/30/18 21:13 Pulse Ox 97 07/30/18 21:07 Weight - Most Recent: 61.774 kg I&O - Last 24 Hours: Intake & Output 07/30/18 07/31/18 07/31/18 22:59 06:59 14:59 Intake Total 1986 Output Total 1000 Balance 986 Lab Results Last 24 Hours: Laboratory Results - last 24 hr 07/30/18 07/30/18 07/31/18 Range/Units 06:40 06:40 05:43 WBC 6.97 5.74 (3.98-10.04) K/mm3 RBC 4.26 4.12 (3.98-5.22) M/mm3 Hgb 9.5 L D 9.2 L (11.2-15.7) gm/L Hct 32.4 L 30.9 L (34.1-44.9) % MCV 76.1 L 75.0 L (79.4-94.8) fl MCH 22.3 L 22.3 L (25.6-32.2) pg MCHC 29.3 L 29.8 L (32.2-35.5) g/dl RDW Std Deviation 51.0 H 48.9 H (36.4-46.3) fL Plt Count 209 184 (182-369) K/mm3 MPV 11.6 11.4 (9.4-12.3) fl Neut % (Auto) 72.5 H 67.4 (34.0-71.1) % Lymph % (Auto) 20.7 23.9 (19.3-51.7) % [place] % (Auto) 5.9 6.4 (4.7-12.5) % Eos % (Auto) 0.7 1.9 (0.7-5.8) Baso % (Auto) 0.1 0.2 (0.1-1.2) % Neut # (Auto) 5.05 3.87 (1.56-6.13) K/mm3 Lymph # (Auto) 1.44 1.37 (1.18-3.74) K/mm3 [place] # (Auto) 0.41 H 0.37 H (0.24-0.36) K/mm3 Eos # (Auto) 0.05 0.11 (0.04-0.36) K/mm3 Baso # (Auto) 0.01 0.01 (0.01-0.08) K/mm3 Manual Slide Review Abnormal smear Abnormal smear Sodium 146 H (136-145) mEq/L Potassium 4.1 (3.5-5.1) mEq/L Chloride 112 H (98-107) mEq/L Carbon Dioxide 26 (21-32) mEq/L Anion Gap 12.1 (5-15) BUN 14 (7-18) mg/dL Creatinine 0.7 (0.55-1.02) mg/dL Est Cr Clr Drug Dosing 75.95 mL/min Estimated GFR (MDRD) > 60 (>60) mL/min BUN/Creatinine Ratio 20.0 H (14-18) Glucose 95 (80-115) mg/dL Calcium 9.0 (8.5-10.1) mg/dL Magnesium 1.9 (1.8-2.4) mg/dl 07/31/18 Range/Units 05:43 WBC (3.98-10.04) K/mm3 RBC (3.98-5.22) M/mm3 Hgb (11.2-15.7) gm/L Hct (34.1-44.9) % MCV (79.4-94.8) fl MCH (25.6-32.2) pg MCHC (32.2-35.5) g/dl RDW Std Deviation (36.4-46.3) fL Plt Count (182-369) K/mm3 MPV (9.4-12.3) fl Neut % (Auto) (34.0-71.1) % Lymph % (Auto) (19.3-51.7) % [place] % (Auto) (4.7-12.5) % Eos % (Auto) (0.7-5.8) Baso % (Auto) (0.1-1.2) % Neut # (Auto) (1.56-6.13) K/mm3 Lymph # (Auto) (1.18-3.74) K/mm3 [place] # (Auto) (0.24-0.36) K/mm3 Eos # (Auto) (0.04-0.36) K/mm3 Baso # (Auto) (0.01-0.08) K/mm3 Manual Slide Review Sodium 142 (136-145) mEq/L Potassium 4.1 (3.5-5.1) mEq/L Chloride 110 H (98-107) mEq/L Carbon Dioxide 25 (21-32) mEq/L Anion Gap 11.1 (5-15) BUN 10 (7-18) mg/dL Creatinine 0.6 (0.55-1.02) mg/dL Est Cr Clr Drug Dosing 88.73 mL/min Estimated GFR (MDRD) > 60 (>60) mL/min BUN/Creatinine Ratio 16.7 (14-18) Glucose 88 (80-115) mg/dL Calcium 8.6 (8.5-10.1) mg/dL Magnesium 1.7 L (1.8-2.4) mg/dl Jero Results Last 24 Hours: Microbiology 07/28/18 17:21 Aerobic Blood Culture - Preliminary Blood - Venous - Lab Draw NO GROWTH AFTER 2 DAYS Anaerobic Blood Culture - Preliminary NO GROWTH AFTER 2 DAYS 07/28/18 17:10 Aerobic Blood Culture - Preliminary Blood - Venous NO GROWTH AFTER 2 DAYS Anaerobic Blood Culture - Preliminary NO GROWTH AFTER 2 DAYS 07/28/18 15:00 Urine Culture - Final Urine, Catheterized Escherichia Coli Med Orders - Current: Current Medications Acetaminophen (Tylenol) 650 mg PO Q4H PRN PRN Reason: Pain (Mild 1-3)/fever Hydrocodone Bitart/Acetaminophen ([place] 325-5 Mg) 1 tab PO Q4H PRN PRN Reason: Pain (moderate 4-6) Albuterol/Ipratropium (Duoneb 3.0-0.5 Mg/3 Ml) 3 ml NEB Q4H PRN PRN Reason: Shortness Of Breath/wheezing Amlodipine Besylate (Norvasc) 5 mg PO BID [facility] Last Admin: 07/30/18 21:13 Dose: 5 mg Divalproex Sodium (Depakote Sprinkle) 125 mg PO BEDTIME [facility] Last Admin: 07/30/18 21:13 Dose: 125 mg Enoxaparin Sodium (Lovenox) 40 mg SUBCUT DAILY [facility] Last Admin: 07/30/18 08:27 Dose: 40 mg Hydralazine HCl (Apresoline) 20 mg IVPUSH Q4H PRN PRN Reason: Hypertension Hydrochlorothiazide (Hydrochlorothiazide) 12.5 mg PO BIDDIURETIC [facility] Last Admin: 07/31/18 06:50 Dose: 12.5 mg Hydromorphone HCl (Dilaudid) 0.25 mg IVPUSH Q2H PRN PRN Reason: Pain (severe 7-10) Ceftriaxone Sodium 2 gm/ (Sodium Chloride) 100 mls @ 200 mls/hr IV Q24H [facility] Last Admin: 07/30/18 15:05 Dose: 200 mls/hr Potassium Chloride/Sodium Chloride (Normal Saline With 20 Meq Kcl) 1,000 mls @ 100 mls/hr IV ASDIRECTED [facility] Last Admin: 07/31/18 06:59 Dose: 100 mls/hr Lactulose (Cephulac) 20 gm PO Q6H [facility] Last Admin: 07/31/18 06:50 Dose: 20 gm Lisinopril (Prinivil) 10 mg PO DAILY [facility] Last Admin: 07/30/18 08:27 Dose: 10 mg Lorazepam (Ativan) 2 mg IVPUSH Q4H PRN PRN Reason: Seizures Magnesium Sulfate (Pharmacy To Dose - Magnesium Replacement) 0 dose .XX ASDIRECTED PRN PRN Reason: RX TO WATCH MAG Metoclopramide HCl (Reglan) 10 mg IVPUSH Q6H [facility] Last Admin: 07/31/18 06:50 Dose: 10 mg Metoprolol Tartrate (Lopressor) 5 mg IVPUSH Q4H PRN PRN Reason: Tachycardia Miscellaneous Information (Remove Patch) 1 ea TRDERM Q7D [facility] Stop: 08/04/18 18:01 Ondansetron HCl (Zofran Odt) 4 mg PO Q6HR PRN PRN Reason: Nausea Pantoprazole Sodium (Protonix) 40 mg PO DAILY [facility] Last Admin: 07/30/18 08:27 Dose: 40 mg Sarna Anti-Itch Lotion Pt's Own Men 0 each TOP ASDIRECTED PRN PRN Reason: Dryness Potassium Chloride (Pharmacy To Dose - Potassium Replacement) 0 dose .XX ASDIRECTED PRN PRN Reason: RX TO WATCH K Saccharomyces Boulardii (Florastor) 250 mg PO BID [facility] Last Admin: 07/30/18 21:13 Dose: 250 mg Sodium Chloride (Saline Flush) 10 ml FLUSH ASDIRECTED PRN PRN Reason: Keep Vein Open Last Admin: 07/28/18 14:40 Dose: 10 ml Discontinued Medications Bisacodyl (Dulcolax) 10 mg RECTAL DAILY [facility] Last Admin: 07/29/18 09:21 Dose: Not Given Clonidine HCl (Catapres-Tts 3) 0.3 mg TRDERM Q7D ONE Stop: 07/28/18 17:31 Last Admin: 07/28/18 18:55 Dose: 0.3 mg Sodium Chloride (Normal Saline) 1,000 mls @ 125 mls/hr IV ASDIRECTED [facility] Last Admin: 07/28/18 14:40 Dose: 125 mls/hr Dextrose/Water (Dextrose 5% In Water) 1,000 mls @ 100 mls/hr IV ASDIRECTED [facility] Potassium Chloride 20 meq/ (Dextrose/Water) 1,010 mls @ 101 mls/hr IV ASDIRECTED [facility] Potassium Chloride (Kcl 10 Meq In Water 100 Ml) 100 mls @ 100 mls/hr IV Q1H [facility] Stop: 07/29/18 00:59 Last Admin: 07/29/18 01:36 Dose: 100 mls/hr Iopamidol (Isovue-370 (76%)) 100 ml IV ONETIME ONE Stop: 07/28/18 15:12 Last Admin: 07/28/18 15:30 Dose: 100 ml Mineral Oil (Mineral Oil) 30 ml PO TID [facility] Stop: 07/31/18 09:01 Neostigmine Methylsulfate (Neostigmine Methylsulfate) 0.5 mg IM Q6H [facility] Stop: 07/30/18 12:46 Last Admin: 07/29/18 14:08 Dose: 0.5 mg Neostigmine Methylsulfate (Neostigmine Methylsulfate) 0.5 mg IM Q6H [facility] Stop: 07/30/18 14:01 Last Admin: 07/30/18 13:59 Dose: 0.5 mg Non-Formulary Medication (Acetaminophen) 500 mg PO Q8H PRN PRN Reason: Pain Non-Formulary Medication (Lactose-Reduced Food [Boost Plus]) 120 ml PO QID [facility] Mineral Oil Enema - (Store Room) 0 each .XX TID [facility] Stop: 07/30/18 21:01 Last Admin: 07/30/18 21:14 Dose: 1 each Sodium Chloride (Saline Flush) 10 ml FLUSH ONETIME ONE Stop: 07/28/18 15:12 Last Admin: 07/28/18 15:31 Dose: 10 ml - Exam General: Alert, Cooperative, No Acute Distress HEENT: Pupils Equal, Pupils Reactive, Mucous Membr. Moist/[place] Neck: Supple Lungs: Clear to Auscultation, Normal Respiratory Effort Cardiovascular: Regular Rhythm, Bradycardia GI/Abdominal Exam: Normal Bowel Sounds, Soft, No Organomegaly, No Abnormal Bruit , Distended (Mild), Other (rectal tube) (Female) Exam: Deferred Back Exam: Normal Inspection, Decreased Range of Motion Extremities: Non-Tender, Normal Capillary Refill, Limited Range of Motion Peripheral Pulses: 2+: Dorsalis Pedis (L), Dorsalis Pedis (R) Skin: Warm, Dry, Intact Neurological: No New Focal Deficit (not appropraite due to baseline brain injury ), Other (slow in response). No: Normal Gait Psy/Mental Status: Alert, Normal Mood. No: Normal Affect - Problem List Review Problem List Initiated/Reviewed/Updated: Yes - My Orders Last 24 Hours: My Active Orders 08/04/18 18:00 Remove Patch 1 ea TRDERM Q7D - Plan Plan:: Assessment/Plan: Acute: UTI 2/2 E. coli - Carries a hx/o E. Coli and Beta Group G Strep - Continue IV Rocephin Daily - UA shows sensitive to Rocephin - Immobility and Urinary Incontinence Ileus, Slightly Worse - 2/2 Bowel Incontinence and Severe Constipation - Risk factors: Immobility, High Protein Diet, Lack of Stool Softeners, Chronic Constipation and Medications Induced - CXR shows slightly worsening of ileus (more like clearing of stools) - Restart low dose neostigmine and start a small dose of simethicone - Continue Bowel Prep, Prokinetic Agents, and Rectal Tube Hypomagnesemia - Mg 1.7 - 2/2 GI Loss - Replete and Monitor Resolved: S/p Sepsis - 2/2 UTI - UA strongly suggestive of UTI - Carries a hx/o urinary incontinence - HR of 102; RR of 24; WB of 15K - Blood Culture x2 and IV Abx - IV Hydration S/p Electrolytes Abnormality - Na 151--> 148; K 3.0 --> 4 - 2/2 inadequate oral intake - Replete and monitor S/p Malignant HTN - Document BPs 191/97 and 161/78 mmHg - Resume Home BP meds - Clonidine Patch x1, CCB, HCTZ and PRN Vasodilators Chronic: Dementia, GERD, Seizure Disorder, Hx/o C. Diff Colitis, Chronic Constipation, Immobility, Hx/o Ileus, HTN, HLD, MDD, Chronic Skin Ulcers, DM2/ Hyperglycemia, Chronic Electrolytes Abnormality, Hx/o Diverticulosis, Hemorrhoids, KOBE, Urinary/Bowel Incontinence, OA, DM2, Encephalopathy 2/2 Trauma and Dysphagia-NDD2 Plan: She remains clinically stable Routine AM Labs Aspiration and Fall Precautions DVT/GI Prophylaxis; PPI and Lovenox SubQ daily SW/CM for d/c planning Code status: DNR/DNI Possible discharge tomorrow
[2018-07-31] MEDS: Pantoprazole 40 MG Tab.CR PO SCH (09:10)
[2018-07-31] MEDS: Saccharomyces Boulardii (Probiotic) 250 MG Cap PO SCH ×2 (09:10→20:44)
[2018-07-31] MEDS: Lisinopril 10 MG Tab PO SCH (09:10)
[2018-07-31] MEDS: amLODIPine 5 MG Tab PO SCH ×2 (09:10→20:49)
[2018-07-31] MEDS: Enoxaparin 40 MG/0.4 ML Syringe SUBCUT SCH (09:10)
--- NOTE | 2018-07-31 10:55 | CR ---
Abdomen: Supine view of the abdomen was obtained. Diffuse gaseous dilatation of colon and small bowel. This does not appear to be obstructive and most likely represents ileus. More small bowel gas is seen as well as more colonic gas is seen from prior exam. Scoliosis and degenerative change is noted within the spine. Calcifications are seen within the pelvis which are compatible with phleboliths. Impression: 1. Slight worsening of ileus when compared to most recent exam. 2. Other incidental findings. Diagnostic code #3
[2018-07-31] MEDS ORDERED: Neostigmine Methylsulfate 10 MG/10 ML MDV IM SCH (11:30)
[2018-07-31] MEDS ORDERED: Simethicone 80 MG Tab.Chew PO PRN (12:17)
[2018-07-31] MEDS: Neostigmine Methylsulfate 10 MG/10 ML MDV IM SCH ×3 (12:27→23:50)
[2018-07-31] MEDS: cefTRIAXone 2 GM in Sodium Chloride 0.9% 100 ML IV SCH (15:32)
[2018-07-31] MEDS: Divalproex Sodium Delayed-Release 125 MG Cap.Sprink PO SCH (20:44)
[2018-08-01] MEDS: NS + KCl 20mEq/L 1,000 ML IV SCH (03:07)
[2018-08-01] MEDS: Hydrochlorothiazide 12.5 MG Cap PO SCH ×2 (06:26→06:54)
[2018-08-01] MEDS: Lactulose Soln 10 GM/15 ML 30 ML UD Cup PO SCH ×3 (06:26→13:21)
[2018-08-01] MEDS: Neostigmine Methylsulfate 10 MG/10 ML MDV IM SCH ×2 (06:33→13:21)
[2018-08-01] MEDS: Metoclopramide 10 MG/2 ML SDV IVPUSH SCH ×2 (06:36→13:21)
[2018-08-01] MEDS: Saccharomyces Boulardii (Probiotic) 250 MG Cap PO SCH (08:05)
[2018-08-01] MEDS: amLODIPine 5 MG Tab PO SCH (08:05)
[2018-08-01] MEDS: Lisinopril 10 MG Tab PO SCH (08:06)
[2018-08-01] MEDS: Pantoprazole 40 MG Tab.CR PO SCH (08:06)
[2018-08-01 08:10] VITALS: BP 137/81
[2018-08-01] MEDS: Enoxaparin 40 MG/0.4 ML Syringe SUBCUT SCH (08:20)
--- NOTE | 2018-08-01 09:09 | CR ---
Abdomen: Supine view of the abdomen was obtained. Comparison: Prior abdominal x-ray of 07/31/18. Continuing gas filled colon and small bowel is noted. Findings are felt compatible with prominent ileus which remains without significant change from previous study. Phleboliths are noted within the pelvis. Degenerative change and scoliosis is present within the spine. Impression: 1. Findings compatible with continuing ileus. 2. Other incidental findings. Diagnostic code #3
--- NOTE | 2018-08-01 10:53 | PCM.DCSUM1 ---
Discharge Summary - Hospital Course HPI Initial Comments: This is a 67 yo white female with past medical hx/o Dementia, GERD, Seizure Disorder, Hx/o C. Diff Colitis, Chronic Constipation, Immobility, Hx/o Ileus, HTN, HLD, MDD, Chronic Skin Ulcers, DM2/Hyperglycemia, Chronic Electrolytes Abnormality, Hx/o Diverticulosis, Hemorrhoids, KOBE, Urinary/Bowel Incontinence, OA, DM2, Encephalopathy 2/2 Trauma and Dysphagia-NDD2 who comes in for evaluation of worsening abdominal distention associated with pain, vomiting, constipation, fever that started a few days ago. Patient is mostly bedbound due to hx/o traumatic brain injury. Her last bowel movement was a couple of days ago. She is known to the hospitalist service from previous admission due to similar presentation, diagnosed with SBO/Ileus. Per family, she was just discharged on Hospice/Palliative Care Services about a week ago at [facility]. Her initial work up in ED shows elevated WBC level of 15.06 with Neutrophils of 85.1%. Her chemistry is significant for electrolytes abnormality. Her UA meets criteria of UTI. Abdominal/Pelvis CT scan report reads as dilated colon with liquid stool within the rectum mostly likely represent colonic ileus. Patient is primarily being admitted for Sepsis 2/2 UTI, UTI 2/2 Urinary Incontinence, Ileus 2/2 Severe Constipation/Colonic Incontinence, and Electrolytes Abnormality. She is DNR/DNI. Risk factors: Immobility, Bedbound, Mainly High Protein Diet (Boost), No Stool Softeners and on Anti-cholinergic Medications ( Depakote and Zoloft). Diagnosis: Stroke: No Modified Lipscomb Scale: No Symptoms at All Modified Lipscomb Scale Score: 0 - Discharge Data Discharge Date: 08/01/18 Discharge Disposition: Home, Self-Care 01 Condition: Good - Discharge Diagnosis/Problem(s) (1) Sepsis SNOMED Code(s): 01560239 ICD Code: A41.9 - SEPSIS, UNSPECIFIED ORGANISM Status: Ruled-out Qualifiers: Sepsis type: Escherichia coli Qualified Code(s): A41.51 - Sepsis due to Escherichia coli [E. coli] (2) Hypernatremia SNOMED Code(s): 635904980 ICD Code: E87.0 - HYPEROSMOLALITY AND HYPERNATREMIA Status: Resolved (3) Hypokalemia SNOMED Code(s): 45415391 ICD Code: E87.6 - HYPOKALEMIA Status: Resolved (4) Malignant essential hypertension SNOMED Code(s): 55696527 ICD Code: I10 - ESSENTIAL (PRIMARY) HYPERTENSION Status: Resolved (5) Ileus SNOMED Code(s): 060994071 ICD Code: K56.7 - ILEUS, UNSPECIFIED Status: Chronic Problem Details: - Acute on Chronic (6) UTI (urinary tract infection) SNOMED Code(s): 82442306 ICD Code: N39.0 - URINARY TRACT INFECTION, SITE NOT SPECIFIED Status: Acute Qualifiers: Urinary tract infection type: site unspecified Hematuria presence: without hematuria Qualified Code(s): N39.0 - Urinary tract infection, site not specified - Patient Summary/Data Operative Procedure(s) Performed: None Complications: None Consults: Consultations 07/28/18 17:21 Consult to Case Management/[employer]er [employer]ush Worker [CONS] Routine Consult to Spiritual Care [CONS] Routine Labs Pending at D/C: None Recommended Follow-up Testing/Procedures: None Planned Operative Procedure(s) after DC: None - Patient Instructions Diet: Usual Diet as Tolerated Activity: As Tolerated Driving: Do Not Drive Showering/Bathing: May Shower, No Tub Bathing/Swimming Notify Provider of: Fever, Increased Pain, Swelling and Redness, Drainage, Nausea and/or Vomiting Other/Special Instructions: - Please take all new medications as directed. - Resume all home medications and continue routine home activities as tolerated. - Follow up with PCP in 1 week. - Call or follow up with your PCP for any questions or concerns after discharge. - Come back or seek immediate care should your symptoms persist or get worse - Discharge Plan *PRESCRIPTION DRUG MONITORING PROGRAM REVIEWED*: Not Applicable *COPY OF PRESCRIPTION DRUG MONITORING REPORT IN PATIENT SHEREE: Not Applicable Prescriptions/Med Rec: amLODIPine [Norvasc] 5 mg PO BID #30 tablet hydroCHLOROthiazide [Hydrochlorothiazide] 12.5 mg PO BIDDIURETIC #60 cap Lisinopril [Prinivil] 10 mg PO DAILY #30 tablet Sennosides/Docusate Sodium [Senokot-S Tablet] 1 each PO BID #60 tablet Simethicone 80 mg PO Q6H PRN #30 tab.chew PRN Reason: Gas Wheat Dextrin [Benefiber] 1 each PO ASDIRECTED #12 powd.pack Home Medications: Home Meds Acetaminophen [Tylenol Extra Strength] 500 mg PO Q8H PRN 02/22/18 [History] Ondansetron [Zofran ODT] 4 mg PO Q6HR PRN 02/22/18 [History] Sertraline [Zoloft] 150 mg PO DAILY 02/22/18 [History] Pantoprazole [ProTONIX] 40 mg PO DAILY #30 tab.cr 03/18/18 [Rx] Saccharomyces Boulardii [Florastor] 250 mg PO BID #60 cap 03/18/18 [Rx] Acetaminophen [Tylenol] 650 mg RECTAL Q4HR PRN 07/28/18 [History] Divalproex Sodium [Depakote Sprinkle] 125 mg PO BEDTIME 07/28/18 [History] Menthol/Camphor [Sarna Anti-Itch Lotion] 1 applic TOP ASDIRECTED PRN 07/28/18 [ History] Polyethylene Glycol 3350 [MiraLAX] 17 gram PO DAILY 07/28/18 [History] Lisinopril [Prinivil] 10 mg PO DAILY #30 tablet 08/01/18 [Rx] Sennosides/Docusate Sodium [Senokot-S Tablet] 1 each PO BID #60 tablet 08/01/18 [Rx] Simethicone 80 mg PO Q6H PRN #30 tab.chew 08/01/18 [Rx] Wheat Dextrin [Benefiber] 1 each PO ASDIRECTED #12 powd.pack 08/01/18 [Rx] amLODIPine [Norvasc] 5 mg PO BID #30 tablet 08/01/18 [Rx] hydroCHLOROthiazide [Hydrochlorothiazide] 12.5 mg PO BIDDIURETIC #60 cap [Rx] Oxygen Therapy Mode: Room Air Patient Handouts: Hypernatremia, [id number], Hypokalemia, Constipation, Adult , [id number], Ileus, Urinary Tract Infection, Adult, [id number], Sepsis, Adult, Hypertension, [id number] Referrals: Traci Lynn MD [Primary Care Provider] - (Please call clinic on Thursday and make a follow-up appointment for 1 week.) - Discharge Summary/Plan Comment DC Time >30 min.: No Discharge Summary/Plan Comment: Discharge to [place] - General Info Date of Service: 08/01/18 Admission Dx/Problem (Free Text: Admission Diagnosis/Problem Admission Diagnosis/Problem Ileus Subjective Update: Follow Up Functional Status: Reports: Pain Controlled, Tolerating Diet, Urinating. Denies : New Symptoms - Review of Systems General: Denies: Fever, Chills HEENT: Reports: No Symptoms Pulmonary: Denies: Shortness of Breath Cardiovascular: Denies: Chest Pain, Dyspnea on Exertion, Lightheadedness Gastrointestinal: Denies: Abdominal Pain, Nausea, Vomiting Genitourinary: Reports: No Symptoms Musculoskeletal: Reports: Back Pain Skin: Denies: Cyanosis, Pallor, Diaphoresis, Bruising Neurological: Reports: Pre-Existing Deficit, Difficulty Walking, Weakness, Gait Disturbance, Other (baseline: cognitive impairment from hx/o traumatic brain injury) Psychiatric: Denies: Depression, Anxiety, Agitation, Hallucinations Systems Review Comment: No overnight or acute issues. She is doing relatively well. - Patient Data Vitals - Most Recent: Last Vital Signs Temp 37.1 C 08/01/18 08:00 Pulse 63 08/01/18 08:00 Resp 16 08/01/18 08:00 BP 137/81 08/01/18 08:06 Pulse Ox 99 08/01/18 08:00 Weight - Most Recent: 62.414 kg I&O - Last 24 hours: Intake & Output 07/31/18 08/01/18 08/01/18 22:59 06:59 14:59 Intake Total 1229 1377 Balance 1229 1377 MAYA Results - Last 24 hrs: Microbiology 07/28/18 17:21 Aerobic Blood Culture - Preliminary Blood - Venous - Lab Draw NO GROWTH AFTER 3 DAYS Anaerobic Blood Culture - Preliminary NO GROWTH AFTER 3 DAYS 07/28/18 17:10 Aerobic Blood Culture - Preliminary Blood - Venous NO GROWTH AFTER 3 DAYS Anaerobic Blood Culture - Preliminary NO GROWTH AFTER 3 DAYS Med Orders - Current: Current Medications Acetaminophen (Tylenol) 650 mg PO Q4H PRN PRN Reason: Pain (Mild 1-3)/fever Hydrocodone Bitart/Acetaminophen ([place] 325-5 Mg) 1 tab PO Q4H PRN PRN Reason: Pain (moderate 4-6) Albuterol/Ipratropium (Duoneb 3.0-0.5 Mg/3 Ml) 3 ml NEB Q4H PRN PRN Reason: Shortness Of Breath/wheezing Amlodipine Besylate (Norvasc) 5 mg PO BID [facility] Last Admin: 08/01/18 08:05 Dose: 5 mg Divalproex Sodium (Depakote Sprinkle) 125 mg PO BEDTIME [facility] Last Admin: 07/31/18 20:44 Dose: 125 mg Enoxaparin Sodium (Lovenox) 40 mg SUBCUT DAILY [facility] Last Admin: 08/01/18 08:20 Dose: 40 mg Hydralazine HCl (Apresoline) 20 mg IVPUSH Q4H PRN PRN Reason: Hypertension Hydrochlorothiazide (Hydrochlorothiazide) 12.5 mg PO BIDDIURETIC [facility] Last Admin: 08/01/18 06:54 Dose: Not Given Hydromorphone HCl (Dilaudid) 0.25 mg IVPUSH Q2H PRN PRN Reason: Pain (severe 7-10) Ceftriaxone Sodium 2 gm/ (Sodium Chloride) 100 mls @ 200 mls/hr IV Q24H [facility] Last Admin: 07/31/18 15:32 Dose: 200 mls/hr Potassium Chloride/Sodium Chloride (Normal Saline With 20 Meq Kcl) 1,000 mls @ 100 mls/hr IV ASDIRECTED [facility] Last Admin: 08/01/18 03:07 Dose: 100 mls/hr Lactulose (Cephulac) 20 gm PO Q6H [facility] Last Admin: 08/01/18 06:57 Dose: Not Given Lisinopril (Prinivil) 10 mg PO DAILY [facility] Last Admin: 08/01/18 08:06 Dose: 10 mg Lorazepam (Ativan) 2 mg IVPUSH Q4H PRN PRN Reason: Seizures Magnesium Sulfate (Pharmacy To Dose - Magnesium Replacement) 0 dose .XX ASDIRECTED PRN PRN Reason: RX TO WATCH MAG Metoclopramide HCl (Reglan) 10 mg IVPUSH Q6H [facility] Last Admin: 08/01/18 06:36 Dose: 10 mg Metoprolol Tartrate (Lopressor) 5 mg IVPUSH Q4H PRN PRN Reason: Tachycardia Miscellaneous Information (Remove Patch) 1 ea TRDERM Q7D [facility] Stop: 08/04/18 18:01 Neostigmine Methylsulfate (Neostigmine Methylsulfate) 0.5 mg IM Q6H [facility] Stop: 08/01/18 18:01 Last Admin: 08/01/18 06:33 Dose: 0.5 mg Ondansetron HCl (Zofran Odt) 4 mg PO Q6HR PRN PRN Reason: Nausea Pantoprazole Sodium (Protonix) 40 mg PO DAILY [facility] Last Admin: 08/01/18 08:06 Dose: 40 mg Sarna Anti-Itch Lotion [employer] Own [employer] 0 each TOP ASDIRECTED PRN PRN Reason: Dryness Potassium Chloride (Pharmacy To Dose - Potassium Replacement) 0 dose .XX ASDIRECTED PRN PRN Reason: RX TO WATCH K Saccharomyces Boulardii (Florastor) 250 mg PO BID [facility] Last Admin: 08/01/18 08:05 Dose: 250 mg Simethicone (Simethicone) 80 mg PO Q6H PRN PRN Reason: Gas Last Admin: 07/31/18 17:08 Dose: 80 mg Sodium Chloride (Saline Flush) 10 ml FLUSH ASDIRECTED PRN PRN Reason: Keep Vein Open Last Admin: 07/28/18 14:40 Dose: 10 ml Discontinued Medications Bisacodyl (Dulcolax) 10 mg RECTAL DAILY [facility] Last Admin: 07/29/18 09:21 Dose: Not Given Clonidine HCl (Catapres-Tts 3) 0.3 mg TRDERM Q7D ONE Stop: 07/28/18 17:31 Last Admin: 07/28/18 18:55 Dose: 0.3 mg Sodium Chloride (Normal Saline) 1,000 mls @ 125 mls/hr IV ASDIRECTED [facility] Last Admin: 07/28/18 14:40 Dose: 125 mls/hr Dextrose/Water (Dextrose 5% In Water) 1,000 mls @ 100 mls/hr IV ASDIRECTED [facility] Potassium Chloride 20 meq/ (Dextrose/Water) 1,010 mls @ 101 mls/hr IV ASDIRECTED [facility] Potassium Chloride (Kcl 10 Meq In Water 100 Ml) 100 mls @ 100 mls/hr IV Q1H [facility] Stop: 07/29/18 00:59 Last Admin: 07/29/18 01:36 Dose: 100 mls/hr Magnesium Sulfate/Dextrose 1 (gm/ Premix) 100 mls @ 100 mls/hr IV ONETIME ONE Stop: 07/31/18 11:29 Last Admin: 07/31/18 12:21 Dose: 100 mls/hr Iopamidol (Isovue-370 (76%)) 100 ml IV ONETIME ONE Stop: 07/28/18 15:12 Last Admin: 07/28/18 15:30 Dose: 100 ml Mineral Oil (Mineral Oil) 30 ml PO TID [facility] Stop: 07/31/18 09:01 Neostigmine Methylsulfate (Neostigmine Methylsulfate) 0.5 mg IM Q6H [facility] Stop: 07/30/18 12:46 Last Admin: 07/29/18 14:08 Dose: 0.5 mg Neostigmine Methylsulfate (Neostigmine Methylsulfate) 0.5 mg IM Q6H [facility] Stop: 07/30/18 14:01 Last Admin: 07/30/18 13:59 Dose: 0.5 mg Neostigmine Methylsulfate (Neostigmine Methylsulfate) 0.5 mg IM Q4H [facility] Stop: 08/01/18 07:31 Last Admin: 07/31/18 13:40 Dose: Not Given Non-Formulary Medication (Acetaminophen) 500 mg PO Q8H PRN PRN Reason: Pain Non-Formulary Medication (Lactose-Reduced Food [Boost Plus]) 120 ml PO QID [facility] Mineral Oil Enema - (Store Room) 0 each .XX TID [facility] Stop: 07/30/18 21:01 Last Admin: 07/30/18 21:14 Dose: 1 each Sodium Chloride (Saline Flush) 10 ml FLUSH ONETIME ONE Stop: 07/28/18 15:12 Last Admin: 07/28/18 15:31 Dose: 10 ml - Exam General: Reports: Alert, Cooperative, No Acute Distress HEENT: Reports: Pupils Equal, Pupils Reactive, Mucous Membr. Moist/[place] Neck: Reports: Supple Lungs: Reports: Normal Respiratory Effort, Decreased Breath Sounds Cardiovascular: Reports: Regular Rate, Regular Rhythm GI/Abdominal Exam: Normal Bowel Sounds, Soft, Non-Tender, No Organomegaly, No Distention, No Abnormal Bruit. No: Guarding, Rigid, Rebound (Female) Exam: Deferred Rectal (Female) Exam: Deferred Back Exam: Reports: Normal Inspection, Decreased Range of Motion Extremities: Normal Inspection, Normal Range of Motion, No Pedal Edema, Normal Capillary Refill Skin: Reports: Warm, Dry, Intact Neurological: Reports: Other (deferred: not appropriate) Psy/Mental Status: Reports: Alert, Normal Mood. Denies: Normal Affect
[2018-08-01] MEDS: cefTRIAXone 2 GM in Sodium Chloride 0.9% 100 ML IV SCH (11:50)
== END 2018-08-01 13:08 | disposition home or self-care (01) | DRG 872 ==
LOC: SUPCPDRO 13:23 → JD.ED 13:23 → JD.MS 17:08
PROVIDERS: ADMIT Internal Medicine; ATTEND Internal Medicine
DX: A41.9 Sepsis, unspecified organism (principal); K56.7 Ileus, unspecified; N39.0 Urinary tract infection, site not specified; B96.20 Unspecified Escherichia coli [E. coli] as the cause of diseases classified elsewhere; E78.00 Pure hypercholesterolemia, unspecified; I10 Essential (primary) hypertension; E83.42 Hypomagnesemia; E78.5 Hyperlipidemia, unspecified; K21.9 Gastro-esophageal reflux disease without esophagitis; D64.9 Anemia, unspecified; F41.9 Anxiety disorder, unspecified; F32.9 Major depressive disorder, single episode, unspecified; E11.9 Type 2 diabetes mellitus without complications; M19.90 Unspecified osteoarthritis, unspecified site; F03.90 Unspecified dementia, unspecified severity, without behavioral disturbance, psychotic disturbance, mood disturbance, and anxiety; H54.7 Unspecified visual loss; R32 Unspecified urinary incontinence; K64.9 Unspecified hemorrhoids; K57.90 Diverticulosis of intestine, part unspecified, without perforation or abscess without bleeding; G40.909 Epilepsy, unspecified, not intractable, without status epilepticus; R41.82 Altered mental status, unspecified; R11.2 Nausea with vomiting, unspecified; R50.9 Fever, unspecified; R06.02 Shortness of breath; K59.09 Other constipation; E11.65 Type 2 diabetes mellitus with hyperglycemia; D50.9 Iron deficiency anemia, unspecified; R13.10 Dysphagia, unspecified; R15.9 Full incontinence of feces; Z66 Do not resuscitate; Z74.01 Bed confinement status; Z51.5 Encounter for palliative care; Z91.19 Patient's noncompliance with other medical treatment and regimen; Z90.710 Acquired absence of both cervix and uterus; Z90.49 Acquired absence of other specified parts of digestive tract; Z87.820 Personal history of traumatic brain injury; Z79.899 Other long term (current) drug therapy
CPT/HCPCS: 36415; 74177; 80053; 81001; 83690; 85025; 87086; 87088; 87186; 96361; 96365; 99285; J0696; J7030; J7040; Q9967; 74018; 74018-26; 80048; 83605; 83735; 87040; 87493; 87641; 93005; 99284; A9270-GY; J1650; J2710; J2765; J3475; J3480

== ENCOUNTER 2018-08-16 16:13 | Inpatient (IN) | payer MEDICARE, BC, MEDICAID ==
[2018-08-16] MEDS ORDERED: Sodium Chloride 0.9% 10 ML Syringe FLUSH PRN (16:45)
--- NOTE | 2018-08-16 16:45 | EDM.PDOC ---
<Bubba Moore Ijeoma - Last Filed: 08/16/18 19:18> ED HPI GENERAL MEDICAL PROBLEM - General Chief Complaint: Gastrointestinal Problem Stated Complaint: [facility] Time Seen by Provider: 08/16/18 16:33 Source of Information: Reports: Patient, RN Notes Reviewed - History of Present Illness INITIAL COMMENTS - FREE TEXT/NARRATIVE: 67-year-old custodial resident has been brought in by ambulance for evaluation of abdominal pain, abdominal distention, vomiting. She does have history of previous episodes of similar difficulty. She has history of dementia. states that she did suffer a fall, head injury about 5 or 6 years ago and developed progressive dementia after that. She has been in the custodial now for close to 2 years. She does eat okay but last evening is reported to have not eaten as much as usual. She then started having abdominal pain this late morning or early afternoon with some repetitive vomiting and worsening abdominal distention. Patient does not verbalize to give any history so the history I am obtaining is from EMS, and custodial transfer record. - Related Data Allergies Allergy/AdvReac Type Severity Reaction Status Date / Time No Known Allergies Allergy Verified 08/16/18 16:21 Home Meds: Home Meds Acetaminophen [Tylenol Extra Strength] 500 mg PO Q8H PRN 02/22/18 [History] Ondansetron [Zofran ODT] 4 mg PO Q6HR PRN 02/22/18 [History] Sertraline [Zoloft] 150 mg PO DAILY 02/22/18 [History] Pantoprazole [ProTONIX] 40 mg PO DAILY #30 tab.cr 03/18/18 [Rx] Saccharomyces Boulardii [Florastor] 250 mg PO BID #60 cap 03/18/18 [Rx] Acetaminophen [Tylenol] 650 mg RECTAL Q4HR PRN 07/28/18 [History] Divalproex Sodium [Depakote Sprinkle] 125 mg PO BEDTIME 07/28/18 [History] Menthol/Camphor [Sarna Anti-Itch Lotion] 1 applic TOP ASDIRECTED PRN 07/28/18 [ History] Polyethylene Glycol 3350 [MiraLAX] 17 gram PO DAILY 07/28/18 [History] Lisinopril [Prinivil] 10 mg PO DAILY #30 tablet 08/01/18 [Rx] Sennosides/Docusate Sodium [Senokot-S Tablet] 1 each PO BID #60 tablet 08/01/18 [Rx] Simethicone 80 mg PO Q6H PRN #30 tab.chew 08/01/18 [Rx] Wheat Dextrin [Benefiber] 1 each PO ASDIRECTED #12 powd.pack 08/01/18 [Rx] amLODIPine [Norvasc] 5 mg PO BID #30 tablet 08/01/18 [Rx] hydroCHLOROthiazide [Hydrochlorothiazide] 12.5 mg PO BIDDIURETIC #60 cap [Rx] Past Medical History HEENT History: Reports: Impaired Vision Cardiovascular History: Reports: High Cholesterol, Hypertension Other Cardiovascular History: hyperlipidemia, hypomagnesmia, hypokalemia Respiratory History: Reports: SOB Gastrointestinal History: Reports: Diverticulosis, GERD, Hemorrhoids, Other ( See Below) Other Gastrointestinal History: bowel resection, nausea, ilius, C. 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 Psychiatric History: Reports: Anxiety, Dementia, Depression Endocrine/Metabolic History: Reports: Diabetes, Type II Other Endocrine/Metabolic History: with weight loss pt is not considered diabetic at this time Hematologic History: Reports: Anemia Other Hematologic History: low iron- no transfusions Dermatologic History: Reports: Other (See Below) Other Dermatologic History: non-pressure chronic ulcer of skin - Past Surgical History Female Surgical History: Reports: Hysterectomy, Tubal Ligation Social & Family History - Family History Family Medical History: Unobtainable - Caffeine Use Caffeine Use: Reports: None - Living Situation & Occupation Living situation: Reports: , with Spouse Occupation: Disabled ED ROS GENERAL - Review of Systems Review Of Systems: Unable To Obtain (The limited information I have is from her and from EMS report) Constitutional: Reports: Fever (Low-grade) GI/Abdominal: Reports: Abdominal Pain, Other (She is reported to have had a large loose bowel movement earlier today). Denies: Vomiting ED EXAM, GI/ABD - Physical Exam Exam: See Below General Appearance: Other (Patient is awake, nonverbal) Eyes: Bilateral: Normal Appearance Throat/Mouth: Other (Jaw clenched, tip of tongue appears moist) Head: Atraumatic. No: Facial Swelling Neck: Supple Respiratory/Chest: No Respiratory Distress, Lungs Clear, Normal Breath Sounds Cardiovascular: Tachycardia GI/Abdominal Exam: Distended, Other (Mild diffuse tenderness, tympanic to percussion) Extremities: Pedal Edema. No: Increased Warmth, Redness (Race edema left leg compared to the right) Neurological: Other (Patient is unresponsive verbally, does not obey commands, nonverbal at this time) Skin Exam: Warm, Dry, Normal Color Course - Vital Signs Last Recorded V/S: Last Vital Signs Temp 99.7 F 08/16/18 22:26 Pulse 100 08/16/18 22:26 Resp 18 08/16/18 22:26 BP 128/61 08/16/18 22:26 Pulse Ox 95 08/16/18 22:26 - Orders/Labs/Meds Orders: Active Orders 24 hr Category Date Time Status Notify Provider Consults [RC] ASDIRECTED Care 08/16/18 21:25 Active Rectal Tube Managment [Gastrointestinal Tube Mgmt] [RC] Care 08/16/18 19:14 Active 10,16,22,04 Consult to Physician [CONS] Routine Cons 08/16/18 21:24 Active CULTURE URINE [RM] Stat Lab 08/16/18 20:33 Received Sodium Chloride 0.9% [Saline Flush] Med 08/16/18 16:45 Active 10 ml FLUSH ASDIRECTED PRN Peripheral IV Insertion Adult [OM.PC] Stat Oth 08/16/18 16:45 Ordered Rectal Tube Insertion [OM.PC] Routine Oth 08/16/18 19:14 Ordered Medication Orders Sodium Chloride (Saline Flush) 10 ml FLUSH ASDIRECTED PRN PRN Reason: Keep Vein Open Last Admin: 08/16/18 17:08 Dose: 10 ml Labs: Laboratory Tests 08/16/18 08/16/18 08/16/18 Range/Units 17:05 17:05 17:05 WBC 23.57 H (3.98-10.04) K/mm3 RBC 5.56 H (3.98-5.22) M/mm3 Hgb 12.6 D (11.2-15.7) gm/L Hct 40.0 (34.1-44.9) % MCV 71.9 L (79.4-94.8) fl MCH 22.7 L (25.6-32.2) pg MCHC 31.5 L (32.2-35.5) g/dl RDW Std Deviation 48.9 H (36.4-46.3) fL Plt Count 330 (182-369) K/mm3 MPV 11.1 (9.4-12.3) fl Neut % (Auto) 93.2 H (34.0-71.1) % Lymph % (Auto) 2.5 L (19.3-51.7) % [place] % (Auto) 4.1 L (4.7-12.5) % Eos % (Auto) 0 L (0.7-5.8) Baso % (Auto) 0.0 L (0.1-1.2) % Neut # (Auto) 21.96 H (1.56-6.13) K/mm3 Lymph # (Auto) 0.58 L (1.18-3.74) K/mm3 [place] # (Auto) 0.97 H (0.24-0.36) K/mm3 Eos # (Auto) 0.00 L (0.04-0.36) K/mm3 Baso # (Auto) 0.01 (0.01-0.08) K/mm3 Manual Slide Review Abnormal smear Sodium 136 (136-145) mEq/L Potassium 3.4 L (3.5-5.1) mEq/L Chloride 99 (98-107) mEq/L Carbon Dioxide 24 (21-32) mEq/L Anion Gap 16.4 H (5-15) BUN 22 H (7-18) mg/dL Creatinine 0.7 (0.55-1.02) mg/dL Est Cr Clr Drug Dosing 78.18 mL/min Estimated GFR (MDRD) > 60 (>60) mL/min BUN/Creatinine Ratio 31.4 H (14-18) Glucose 195 H (80-115) mg/dL Lactic Acid 1.6 (0.4-2.0) mmol/L Calcium 9.8 (8.5-10.1) mg/dL Total Bilirubin 0.4 (0.2-1.0) mg/dL AST 13 L (15-37) U/L ALT 17 (14-59) U/L Alkaline Phosphatase 91 (46-116) U/L Total Protein 8.3 H (6.4-8.2) g/dl Albumin 3.6 (3.4-5.0) g/dl Globulin 4.7 gm/dL Albumin/Globulin Ratio 0.8 L (1-2) Lipase 166 (73-393) U/L Urine Color (Yellow) Urine Appearance (Clear) Urine pH (5.0-8.0) Ur Specific [place] (1.005-1.030) Urine Protein (Negative) Urine Glucose (UA) (Negative) Urine Ketones (Negative) Urine Occult Blood (Negative) Urine Nitrite (Negative) Urine Bilirubin (Negative) Urine Urobilinogen (0.2-1.0) Ur Leukocyte Esterase (Negative) Urine RBC (0-5) /hpf Urine WBC (0-5) /hpf Ur Squamous Epith Cells (0-5) /hpf Urine Bacteria (FEW) /hpf Urine Mucus (FEW) /hpf 08/16/18 Range/Units 20:33 WBC (3.98-10.04) K/mm3 RBC (3.98-5.22) M/mm3 Hgb (11.2-15.7) gm/L Hct (34.1-44.9) % MCV (79.4-94.8) fl MCH (25.6-32.2) pg MCHC (32.2-35.5) g/dl RDW Std Deviation (36.4-46.3) fL Plt Count (182-369) K/mm3 MPV (9.4-12.3) fl Neut % (Auto) (34.0-71.1) % Lymph % (Auto) (19.3-51.7) % [place] % (Auto) (4.7-12.5) % Eos % (Auto) (0.7-5.8) Baso % (Auto) (0.1-1.2) % Neut # (Auto) (1.56-6.13) K/mm3 Lymph # (Auto) (1.18-3.74) K/mm3 [place] # (Auto) (0.24-0.36) K/mm3 Eos # (Auto) (0.04-0.36) K/mm3 Baso # (Auto) (0.01-0.08) K/mm3 Manual Slide Review Sodium (136-145) mEq/L Potassium (3.5-5.1) mEq/L Chloride (98-107) mEq/L Carbon Dioxide (21-32) mEq/L Anion Gap (5-15) BUN (7-18) mg/dL Creatinine (0.55-1.02) mg/dL Est Cr Clr Drug Dosing mL/min Estimated GFR (MDRD) (>60) mL/min BUN/Creatinine Ratio (14-18) Glucose (80-115) mg/dL Lactic Acid (0.4-2.0) mmol/L Calcium (8.5-10.1) mg/dL Total Bilirubin (0.2-1.0) mg/dL AST (15-37) U/L ALT (14-59) U/L Alkaline Phosphatase (46-116) U/L Total Protein (6.4-8.2) g/dl Albumin (3.4-5.0) g/dl Globulin gm/dL Albumin/Globulin Ratio (1-2) Lipase (73-393) U/L Urine Color Yellow (Yellow) Urine Appearance Slt cloudy H (Clear) Urine pH 5.5 (5.0-8.0) Ur Specific [place] 1.025 (1.005-1.030) Urine Protein Negative (Negative) Urine Glucose (UA) Negative (Negative) Urine Ketones Negative (Negative) Urine Occult Blood Trace-lysed H (Negative) Urine Nitrite Positive H (Negative) Urine Bilirubin Negative (Negative) Urine Urobilinogen 0.2 (0.2-1.0) Ur Leukocyte Esterase 1+ H (Negative) Urine RBC 0-5 (0-5) /hpf Urine WBC 40-50 H (0-5) /hpf Ur Squamous Epith Cells 0-5 (0-5) /hpf Urine Bacteria Moderate H (FEW) /hpf Urine Mucus Moderate H (FEW) /hpf Meds: Medications Generic Name Dose Route Start Last Admin Trade Name Freq PRN Reason Stop Dose Admin Sodium Chloride 10 ml 08/16/18 16:45 08/16/18 17:08 Saline Flush FLUSH 10 ml ASDIRECTED PRN Administration Keep Vein Open Discontinued Medications Generic Name Dose Route Start Last Admin Trade Name Freq PRN Reason Stop Dose Admin Sodium Chloride 500 mls @ 999 mls/hr 08/16/18 16:57 08/16/18 17:07 Normal Saline IV 08/16/18 17:27 999 mls/hr .BOLUS ONE Administration Ceftriaxone Sodium 2 gm/ 100 mls @ 200 mls/hr 08/16/18 21:09 08/16/18 21:18 Sodium Chloride IV 08/16/18 21:38 200 mls/hr ONETIME ONE Administration Metronidazole 500 mg/ Premix 100 mls @ 100 mls/hr 08/16/18 21:24 08/16/18 21: 54 IV 08/16/18 22:23 100 mls/hr ONETIME ONE Administration Ondansetron HCl 4 mg 08/16/18 16:57 08/16/18 17:06 Zofran IVPUSH 08/16/18 16:58 4 mg ONETIME ONE Administration - Re-Assessments/Exams Free Text/Narrative Re-Assessment/Exam: 08/16/18 19:18 WBC 23,000. X rays show quite marked gaseous distension of colon compatable with colonic ileus. Due to elevated WBC will check Abd CT with IV contrast. Pt would have difficulty drinking oral contrast with repetitive vomiting on arrival to ED. Change of shift, will transfer care to Dr Oneill. Departure - Departure Disposition: Admitted As Inpatient 66 Clinical Impression: Ileus, Obstipation UTI (urinary tract infection) Qualifiers: Urinary tract infection type: site unspecified Hematuria presence: without hematuria Qualified Code(s): N39.0 - Urinary tract infection, site not specified - Discharge Information - My Orders Last 24 Hours: My Active Orders 08/16/18 20:33 CULTURE URINE [RM] Stat 08/16/18 21:24 Consult to Physician [CONS] Routine 08/16/18 21:25 Notify Provider Consults [RC] ASDIRECTED - Assessment/Plan Last 24 Hours: My Active Orders 08/16/18 20:33 CULTURE URINE [RM] Stat 08/16/18 21:24 Consult to Physician [CONS] Routine 08/16/18 21:25 Notify Provider Consults [RC] ASDIRECTED <Efrem Oneill - Last Filed: 08/16/18 23:47> Course - Re-Assessments/Exams Free Text/Narrative Re-Assessment/Exam: 08/16/18 23:[address] Moore. Her CT shows increased stool within the right colon and within the rectum. Diffuse gaseous dilatation of colon compatible with ileus or possibly obstipation. Maximum dilatation of the colon is within the transverse region measuring 6.6cm. Her WBC was elevated so I also ordered a UA. Her UA shows a UTI. I have ordered rocephin [address] Moore had a rectal tube placed and she is feeling better after that. I feel she needs to be admitted. I called Dr Harmon and he agreed to the admission. Departure - Departure Time of Disposition: 23:50 Condition: Fair
[2018-08-16] MEDS ORDERED: Ondansetron 4 MG/2 ML SDV IVPUSH ONE (16:57)
[2018-08-16] MEDS ORDERED: Sodium Chloride 0.9% 500 ML IV ONE (16:57)
--- NOTE | 2018-08-16 19:13 | CR ---
Abdomen: Supine and decubitus views of the abdomen were obtained. Comparison: Previous abdominal x-rays are available with most recent studies dated 08/01/18, 07/31/18 and 07/30/18. Diffuse gaseous distention is noted of the colon. Mild amount of stool is seen within the rectum. I believe the findings are most likely due to colonic ileus. No significant small bowel dilatation is seen. Bony structures show slight degenerative change within the spine with mild scoliosis. No free air is seen. Impression: 1. Gaseous dilatation of colon with mild amount of stool within the rectum. Findings most likely due to colonic ileus. 2. Other incidental findings. Diagnostic code #3
--- NOTE | 2018-08-16 19:53 | CT ---
CT abdomen and pelvis Technique: Multiple axial sections were obtained from above the dome of the diaphragm inferiorly through the pubic symphysis. Intravenous and oral contrast was not utilized. Comparison: Prior abdominal x-ray performed earlier on same day (6:32 PM). Prior abdominal and pelvic CT study of 07/28/18 is also available. Findings: Diffuse gaseous dilatation is seen of colon. Fair amount of stool is noted within the right colon as well as within the rectum. Colonic dilatation is most prominent within the transverse colon with diameter of 6.6 cm. Small portion of the visualized lung bases are clear. Noncontrast appearance of the liver and spleen appears within normal limits. Mild coronary artery calcification is seen. Small calcified gallstone is noted within the gallbladder. Adrenal glands show no nodule. Kidneys show small fat-containing lesion on the right side most likely due to angiomyolipoma measuring 1.5 cm. Noncontrast appearance of the kidneys is otherwise unremarkable. Visualized portions of the pancreas show no discrete abnormality. Aorta shows slight atherosclerotic calcification without aneurysm. No retroperitoneal adenopathy or mesenteric abnormalities are seen. No pelvic mass or adenopathy is seen. Bone window settings shows diffuse degenerative change within the spine with mild scoliosis. Impression: 1. Increased stool within the right colon and within the rectum. 2. Diffuse gaseous dilatation of colon compatible with ileus or possibly obstipation. Maximum dilatation of the colon is within the transverse region measuring 6.6 cm. 3. Other incidental findings as described above. Diagnostic code #3
[2018-08-16] MEDS ORDERED: cefTRIAXone 2 GM in Sodium Chloride 0.9% 100 ML IV ONE (21:09)
[2018-08-16] MEDS ORDERED: metroNIDAZOLE/Normal Saline 500 MG in Premix Bag 1 BAG IV ONE (21:24)
[2018-08-16] MEDS ORDERED: Ondansetron 4 MG/2 ML SDV IVPUSH PRN (23:57)
[2018-08-17] MEDS: Sodium Chloride 0.9% 1,000 ML IV SCH ×3 (00:13→20:11)
[2018-08-17] MEDS ORDERED: Acetaminophen 325 MG Tab PO PRN (07:19)
[2018-08-17] MEDS ORDERED: MENTHOL TOP PRN (07:29)
[2018-08-17] MEDS ORDERED: Simethicone 80 MG Tab.Chew PO PRN (07:29)
[2018-08-17] MEDS ORDERED: CAMPHOR TOP PRN (07:29)
[2018-08-17] MEDS ORDERED: Ondansetron 4 MG Tab.DIS PO PRN (07:29)
--- NOTE | 2018-08-17 07:29 | PCM.HP ---
H&P History of Present Illness - General Date of Service: 08/17/18 Admit Problem/Dx: Admission Diagnosis/Problem Admission Diagnosis/Problem Ileus Source of Information: Patient, Old Records, Provider, RN, RN Notes Reviewed History Limitations: Reports: No Limitations - History of Present Illness Initial Comments - Free Text/Narative: Savannah Perry s a 67-year-old female, well-known to this service, who presents to our ED on 08/16/18 via [facility] with a gastrointestinal problem. She reports abdominal pain, abdominal distention, and vomiting. She does have a history of several prior similar episodes and has dementia. 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 She has been in the custodial for close to 2 years. Yesterday evening she was noted to not be eating as much as she usually does. She started having abdominal pain the next day around noon with some vomiting and worsening abdominal distention. Patient is nonverbal and history is obtained from EMS in custodial record. In the ED temperature 99.7. Pulse 100. Respirations 18. Blood pressure 120/ 61. Pulse ox 95%. She is noted to have had a prior large loose bowel movement earlier in the day. She is also noted to not obey commands in the ED. Labs are obtained showing a WBC of 23.57. Hemoglobin 12.6. Hematocrit 40. She is microcytic. Platelets are good at 330,000. Neutrophils are elevated at 93.2%. Sodium is 136. Potassium is slightly low at 3.4. Chloride is 99. Anion gap is high at 16.4. BUN is high at 22. Creatinine 0.7. EGFR greater than 60. Glucose is 195. Lactic acid is 1.6. Calcium is 9.8. AST 13, ALT 17, alkaline phosphatase 91. Protein is 8.3. Albumin 3.6. Lipase 166. UA is obtained and is slightly cloudy with trace lysed occult blood, positive nitrite, 1+ leuk esterase, 40-50 WBCs, moderate bacteria, and moderate urine mucus. Abdominal x- rays obtained and interpreted by Dr. López as "1. Gaseous dilation of colon with mild amount of stool within the rectum. Findings most likely due to colonic ileus. 2. Other incidental findings." CT scan is obtained and patient does not have any oral contrast as she has been vomiting and would likely be unable to keep it down. CT scan is interpreted by Dr. López as "1. Increased stool within the right colon and within the rectum. 2. Diffuse gaseous dilation of colon compatible with ileus or possibly obstipation. Maximum dilation of the colon is within the transverse region measuring 6.6 cm. 3. Otherwise no findings as noted above." She is given a 500 fluid bolus and started on 2 g Rocephin and 500 mg metronidazole. She is also given 4 mg IV push Zofran. Urine and blood cultures are ordered. Rectal tube is placed and patient reports she feels better after that. She carries a history of: impaired vision, HLD, hypertension, hyperlipidemia, hypomagnesemia, hypokalemia, diverticulosis, GERD, hemorrhoids, bowel resection , nausea, ileus, C. 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 She subsequently admitted to the medical floor for UTI and ileus. She is a DNR/ DNI. Her PCP is Dr. Traci Lynn. - Related Data Allergies/Adverse Reactions: Allergies Allergy/AdvReac Type Severity Reaction Status Date / Time No Known Allergies Allergy Verified 08/16/18 16:21 Home Medications: Home Meds Acetaminophen [Tylenol Extra Strength] 500 mg PO Q8H PRN 02/22/18 [History] Ondansetron [Zofran ODT] 4 mg PO Q6HR PRN 02/22/18 [History] Sertraline [Zoloft] 100 mg PO DAILY 02/22/18 [History] Pantoprazole [ProTONIX] 40 mg PO DAILY #30 tab.cr 03/18/18 [Rx] Saccharomyces Boulardii [Florastor] 250 mg PO BID #60 cap 03/18/18 [Rx] Acetaminophen [Tylenol] 650 mg RECTAL Q4HR PRN 07/28/18 [History] Divalproex Sodium [Depakote Sprinkle] 125 mg PO BEDTIME 07/28/18 [History] Menthol/Camphor [Sarna Anti-Itch Lotion] 1 applic TOP ASDIRECTED PRN 07/28/18 [ History] Polyethylene Glycol 3350 [MiraLAX] 17 gram PO DAILY 07/28/18 [History] Lisinopril [Prinivil] 10 mg PO DAILY #30 tablet 08/01/18 [Rx] Sennosides/Docusate Sodium [Senokot-S Tablet] 1 each PO BID #60 tablet 08/01/18 [Rx] Simethicone 80 mg PO Q6H PRN #30 tab.chew 08/01/18 [Rx] Wheat Dextrin [Benefiber] 1 each PO ASDIRECTED #12 powd.pack 08/01/18 [Rx] amLODIPine [Norvasc] 5 mg PO BID #30 tablet 08/01/18 [Rx] hydroCHLOROthiazide [Hydrochlorothiazide] 12.5 mg PO BIDDIURETIC #60 cap [Rx] Past Medical History HEENT History: Reports: Impaired Vision Cardiovascular History: Reports: High Cholesterol, Hypertension Other Cardiovascular History: hyperlipidemia, hypomagnesmia, hypokalemia Respiratory History: Reports: SOB Gastrointestinal History: Reports: Diverticulosis, GERD, Hemorrhoids, Other ( See Below) Other Gastrointestinal History: bowel resection, nausea, ilius, C. 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: Reports: Musculoskeletal History: Reports: Osteoarthritis, Other (See Below) Other Musculoskeletal History: elbow surgery, hx chronic ulceration Neurological History: Reports: CVA, Head Trauma, Seizure Other Neuro History: Traumatic Encephalopathy, Memory Loss, 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 Psychiatric History: Reports: Anxiety, Dementia, Depression Endocrine/Metabolic History: Reports: Diabetes, Type II Other Endocrine/Metabolic History: with weight loss pt is not considered diabetic at this time Hematologic History: Reports: Anemia Other Hematologic History: low iron- no hx of transfusions Immunologic History: Reports: None Oncologic (Cancer) History: Reports: None Dermatologic History: Reports: Other (See Below) Other Dermatologic History: non-pressure chronic ulcer of skin - Infectious Disease History Infectious Disease History: Reports: C-Difficile - Past Surgical History Head Surgeries/Procedures: Reports: None HEENT Surgical History: Reports: None Cardiovascular Surgical History: Reports: None Respiratory Surgical History: Reports: None Female Surgical History: Reports: Hysterectomy, Tubal Ligation Neurological Surgical History: Reports: None Social & Family History - Family History Family Medical History: Unobtainable - Tobacco Use Smoking Status *Q: Never Smoker Second Hand Smoke Exposure: No - Caffeine Use Caffeine Use: Reports: None - Recreational Drug Use Recreational Drug Use: No - Living Situation & Occupation Living situation: Reports: , with Spouse Occupation: Disabled H&P Review of Systems - Review of Systems: Review Of Systems: See Below General: Denies: Fever, Chills HEENT: Denies: Headaches Pulmonary: Denies: Shortness of Breath, Wheezing, Cough, Sputum Cardiovascular: Denies: Chest Pain Gastrointestinal: Reports: Abdominal Pain, Constipation. Denies: Diarrhea, Nausea, Vomiting Genitourinary: Reports: No Symptoms. Denies: Pain Musculoskeletal: Reports: No Symptoms Skin: Reports: No Symptoms Psychiatric: Reports: No Symptoms Neurological: Reports: Pre-Existing Deficit, Trouble Speaking (chronic ), Difficulty Walking (chronic ), Weakness Hematologic/Lymphatic: Reports: No Symptoms Immunologic: Reports: No Symptoms Exam - Exam Exam: See Below - Vital Signs Vital Signs: Last Vital Signs Temp 99.5 F 08/17/18 04:29 Pulse 87 08/17/18 04:29 Resp 16 08/17/18 04:29 BP 113/59 L 08/17/18 04:29 Pulse Ox 99 08/17/18 04:29 Weight: 135 lb 14.4 oz - Exam Quality Assessment: DVT Prophylaxis General: Alert. No: Oriented, Cooperative, Mild Distress HEENT: Conjunctiva Clear, EACs Clear, Pupils Equal, Pupils Reactive Neck: Supple, Trachea Midline Lungs: Clear to Auscultation, Normal Respiratory Effort Cardiovascular: Regular Rate, Regular Rhythm GI/Abdominal Exam: Soft, No Distention, No Abnormal Bruit, Tender (diffuse ), Abnormal Bowel Sounds (Female) Exam: Deferred Rectal (Female) Exam: Deferred Extremities: Normal Inspection, Normal Range of Motion, Non-Tender, No Pedal Edema, Normal Capillary Refill Peripheral Pulses: 2+: Radial (L), Radial (R), Dorsalis Pedis (L), Dorsalis Pedis (R) Skin: Warm, Dry, Intact Neuro Extensive - Mental Status: Alert - Patient Data Lab Results Last 24 hrs: Laboratory Results - last 24 hr 08/16/18 08/16/18 08/16/18 Range/Units 17:05 17:05 17:05 WBC 23.57 H (3.98-10.04) K/mm3 RBC 5.56 H (3.98-5.22) M/mm3 Hgb 12.6 D (11.2-15.7) gm/L Hct 40.0 (34.1-44.9) % MCV 71.9 L (79.4-94.8) fl MCH 22.7 L (25.6-32.2) pg MCHC 31.5 L (32.2-35.5) g/dl RDW Std Deviation 48.9 H (36.4-46.3) fL Plt Count 330 (182-369) K/mm3 MPV 11.1 (9.4-12.3) fl Neut % (Auto) 93.2 H (34.0-71.1) % Lymph % (Auto) 2.5 L (19.3-51.7) % [place] % (Auto) 4.1 L (4.7-12.5) % Eos % (Auto) 0 L (0.7-5.8) Baso % (Auto) 0.0 L (0.1-1.2) % Neut # (Auto) 21.96 H (1.56-6.13) K/mm3 Lymph # (Auto) 0.58 L (1.18-3.74) K/mm3 [place] # (Auto) 0.97 H (0.24-0.36) K/mm3 Eos # (Auto) 0.00 L (0.04-0.36) K/mm3 Baso # (Auto) 0.01 (0.01-0.08) K/mm3 Manual Slide Review Abnormal smear Sodium 136 (136-145) mEq/L Potassium 3.4 L (3.5-5.1) mEq/L Chloride 99 (98-107) mEq/L Carbon Dioxide 24 (21-32) mEq/L Anion Gap 16.4 H (5-15) BUN 22 H (7-18) mg/dL Creatinine 0.7 (0.55-1.02) mg/dL Est Cr Clr Drug Dosing 78.18 mL/min Estimated GFR (MDRD) > 60 (>60) mL/min BUN/Creatinine Ratio 31.4 H (14-18) Glucose 195 H (80-115) mg/dL Lactic Acid 1.6 (0.4-2.0) mmol/L Calcium 9.8 (8.5-10.1) mg/dL Total Bilirubin 0.4 (0.2-1.0) mg/dL AST 13 L (15-37) U/L ALT 17 (14-59) U/L Alkaline Phosphatase 91 (46-116) U/L Total Protein 8.3 H (6.4-8.2) g/dl Albumin 3.6 (3.4-5.0) g/dl Globulin 4.7 gm/dL Albumin/Globulin Ratio 0.8 L (1-2) Lipase 166 (73-393) U/L Urine Color (Yellow) Urine Appearance (Clear) Urine pH (5.0-8.0) Ur Specific [place] (1.005-1.030) Urine Protein (Negative) Urine Glucose (UA) (Negative) Urine Ketones (Negative) Urine Occult Blood (Negative) Urine Nitrite (Negative) Urine Bilirubin (Negative) Urine Urobilinogen (0.2-1.0) Ur Leukocyte Esterase (Negative) Urine RBC (0-5) /hpf Urine WBC (0-5) /hpf Ur Squamous Epith Cells (0-5) /hpf Urine Bacteria (FEW) /hpf Urine Mucus (FEW) /hpf MRSA (PCR) 08/16/18 08/17/18 Range/Units 20:33 00:27 WBC (3.98-10.04) K/mm3 RBC (3.98-5.22) M/mm3 Hgb (11.2-15.7) gm/L Hct (34.1-44.9) % MCV (79.4-94.8) fl MCH (25.6-32.2) pg MCHC (32.2-35.5) g/dl RDW Std Deviation (36.4-46.3) fL Plt Count (182-369) K/mm3 MPV (9.4-12.3) fl Neut % (Auto) (34.0-71.1) % Lymph % (Auto) (19.3-51.7) % [place] % (Auto) (4.7-12.5) % Eos % (Auto) (0.7-5.8) Baso % (Auto) (0.1-1.2) % Neut # (Auto) (1.56-6.13) K/mm3 Lymph # (Auto) (1.18-3.74) K/mm3 [place] # (Auto) (0.24-0.36) K/mm3 Eos # (Auto) (0.04-0.36) K/mm3 Baso # (Auto) (0.01-0.08) K/mm3 Manual Slide Review Sodium (136-145) mEq/L Potassium (3.5-5.1) mEq/L Chloride (98-107) mEq/L Carbon Dioxide (21-32) mEq/L Anion Gap (5-15) BUN (7-18) mg/dL Creatinine (0.55-1.02) mg/dL Est Cr Clr Drug Dosing mL/min Estimated GFR (MDRD) (>60) mL/min BUN/Creatinine Ratio (14-18) Glucose (80-115) mg/dL Lactic Acid (0.4-2.0) mmol/L Calcium (8.5-10.1) mg/dL Total Bilirubin (0.2-1.0) mg/dL AST (15-37) U/L ALT (14-59) U/L Alkaline Phosphatase (46-116) U/L Total Protein (6.4-8.2) g/dl Albumin (3.4-5.0) g/dl Globulin gm/dL Albumin/Globulin Ratio (1-2) Lipase (73-393) U/L Urine Color Yellow (Yellow) Urine Appearance Slt cloudy H (Clear) Urine pH 5.5 (5.0-8.0) Ur Specific [place] 1.025 (1.005-1.030) Urine Protein Negative (Negative) Urine Glucose (UA) Negative (Negative) Urine Ketones Negative (Negative) Urine Occult Blood Trace-lysed H (Negative) Urine Nitrite Positive H (Negative) Urine Bilirubin Negative (Negative) Urine Urobilinogen 0.2 (0.2-1.0) Ur Leukocyte Esterase 1+ H (Negative) Urine RBC 0-5 (0-5) /hpf Urine WBC 40-50 H (0-5) /hpf Ur Squamous Epith Cells 0-5 (0-5) /hpf Urine Bacteria Moderate H (FEW) /hpf Urine Mucus Moderate H (FEW) /hpf MRSA (PCR) Negative Result Diagrams: 08/17/18 08:15 08/17/18 08:15 - Problem List (1) UTI (urinary tract infection) SNOMED Code(s): 63730964 ICD Code: N39.0 - URINARY TRACT INFECTION, SITE NOT SPECIFIED Status: Acute Priority: High Current Visit: Yes Qualifiers: Urinary tract infection type: site unspecified Hematuria presence: without hematuria Qualified Code(s): N39.0 - Urinary tract infection, site not specified (2) Ileus SNOMED Code(s): 260776046 ICD Code: K56.7 - ILEUS, UNSPECIFIED Status: Chronic Priority: High Current Visit: Yes Problem Details: - Acute on Chronic (3) Hypokalemia SNOMED Code(s): 15154280 ICD Code: E87.6 - HYPOKALEMIA Status: Acute Priority: High Current Visit: Yes Problem List Initiated/Reviewed/Updated: Yes Orders Last 24hrs: Active Orders 24 hr Category Date Time Status Admission Status [Patient Status] [ADT] Routine ADT 08/16/18 21:40 Active Bedrest [RC] ASDIRECTED Care 08/16/18 23:59 Active Height and Weight [RC] DAILY Care 08/17/18 07:19 Ordered Intake and Output [RC] QSHIFT Care 08/17/18 07:20 Ordered Notify Provider Consults [RC] ASDIRECTED Care 08/16/18 21:25 Active Oxygen Therapy [RC] PRN Care 08/17/18 07:20 Ordered Pulse Oximetry [RC] PRN Care 08/17/18 07:20 Ordered Rectal Tube Managment [Gastrointestinal Tube Mgmt] [RC] Care 08/16/18 19:14 Active 10,16,22,04 Up to Chair [RC] ASDIRECTED Care 08/17/18 07:19 Ordered VTE/DVT Education [RC] PER UNIT ROUTINE Care 08/17/18 07:20 Ordered Vital Signs [RC] Q6HR Care 08/17/18 07:20 Ordered Consult to Case Management/Produce Weigher [CONS] Cons 08/17/18 07:19 Ordered Routine Consult to Physician [CONS] Routine Cons 08/16/18 21:24 Active Consult to Spiritual Care [CONS] Routine Cons 08/17/18 07:19 Ordered NPO [Nothing Per Oral Diet] [DIET] Diet 08/17/18 Breakfast Active BASIC METABOLIC PANEL,BMP [CHEM] AM Lab 08/18/18 05:11 Ordered BASIC METABOLIC PANEL,BMP [CHEM] AM Lab 08/19/18 05:11 Ordered BASIC METABOLIC PANEL,BMP [CHEM] AM Lab 08/20/18 05:11 Ordered BASIC METABOLIC PANEL,BMP [CHEM] AM Lab 08/21/18 05:11 Ordered BASIC METABOLIC PANEL,BMP [CHEM] Routine Lab 08/17/18 07:18 Ordered C-REACTIVE PROTEIN [CHEM] Routine Lab 08/17/18 07:19 Ordered CBC WITH AUTO DIFF [HEME] AM Lab 08/18/18 05:11 Ordered CBC WITH AUTO DIFF [HEME] AM Lab 08/19/18 05:11 Ordered CBC WITH AUTO DIFF [HEME] AM Lab 08/20/18 05:11 Ordered CBC WITH AUTO DIFF [HEME] AM Lab 08/21/18 05:11 Ordered CBC WITH AUTO DIFF [HEME] Routine Lab 08/17/18 07:18 Ordered CRP [C-REACTIVE PROTEIN] [CHEM] AM Lab 08/18/18 05:11 Ordered CRP [C-REACTIVE PROTEIN] [CHEM] AM Lab 08/19/18 05:11 Ordered CRP [C-REACTIVE PROTEIN] [CHEM] AM Lab 08/20/18 05:11 Ordered CRP [C-REACTIVE PROTEIN] [CHEM] AM Lab 08/21/18 05:11 Ordered CULTURE BLOOD [BC] Stat Lab 08/16/18 23:45 Received CULTURE BLOOD [BC] Stat Lab 08/16/18 23:55 Received CULTURE URINE [RM] Stat Lab 08/16/18 20:33 Received MAGNESIUM [CHEM] AM Lab 08/18/18 05:11 Ordered MAGNESIUM [CHEM] AM Lab 08/19/18 05:11 Ordered MAGNESIUM [CHEM] AM Lab 08/20/18 05:11 Ordered MAGNESIUM [CHEM] AM Lab 08/21/18 05:11 Ordered MAGNESIUM [CHEM] Routine Lab 08/17/18 07:18 Ordered Acetaminophen [Tylenol] Med 08/17/18 07:19 Ordered 650 mg PO Q4H PRN Ondansetron [Zofran] Med 08/16/18 23:57 Active 4 mg IVPUSH Q6HR PRN Sodium Chloride 0.9% [Normal Saline] 1,000 ml Med 08/16/18 23:45 Active IV ASDIRECTED Sodium Chloride 0.9% [Saline Flush] Med 08/16/18 16:45 Active 10 ml FLUSH ASDIRECTED PRN cefTRIAXone [Rocephin] 1 gm Med 08/17/18 21:00 Ordered Sodium Chloride 0.9% [Normal Saline] 100 ml IV Q24H Blood Culture x2 Reflex Set [OM.PC] Stat Ot 08/16/18 23:31 Ordered Peripheral IV Insertion Adult [OM.PC] Stat Ot 08/16/18 16:45 Ordered Rectal Tube Insertion [OM.PC] Routine Oth 08/16/18 19:14 Ordered Resuscitation Status Routine Resus Stat 08/16/18 22:32 Ordered Medication Orders Acetaminophen (Tylenol) 650 mg PO Q4H PRN PRN Reason: Pain (Mild 1-3)/fever Sodium Chloride (Normal Saline) 1,000 mls @ 100 mls/hr IV ASDIRECTED STEFANIE Last Admin: 08/17/18 00:13 Dose: 100 mls/hr Ceftriaxone Sodium 1 gm/ (Sodium Chloride) 100 mls @ 200 mls/hr IV Q24H STEFANIE Ondansetron HCl (Zofran) 4 mg IVPUSH Q6HR PRN PRN Reason: Nausea/Vomiting Sodium Chloride (Saline Flush) 10 ml FLUSH ASDIRECTED PRN PRN Reason: Keep Vein Open Last Admin: 08/16/18 17:08 Dose: 10 ml Assessment/Plan Comment:: I/P: Acute: Ileus vs. distention 2/2 constipation -Reported abdominal pain, distention, decreased oral intake, and vomiting -Multiple prior episodes of ileus -CT scan in ED: * Increased stool within the right colon and within the rectum. * Diffuse gaseous dilatation of colon compatible with ileus or possibly obstipation. Maximum dilatation of the colon is within the transverse region measuring 6.6 cm. * Other incidental findings as described above. -Abdominal X-ray in ED: * Gaseous dilatation of colon with mild amount of stool within the rectum. Findings most likely due to colonic ileus. * Other incidental findings. -Rectal tube placed in ED with relief -Dr. Lim, general surgeon consulted -Rectal exam performed at bedside with no stool or mass noted, fleets enema administered -Recommends repeat abdominal x-ray - improved distension, pending formal read -Recommends continued rectal tube -Recommends repeat enemas as needed -Recommends aggressive bowel regimen at discharge -Recommends continued Abx treatment due to leukocytosis as below UTI -UA: Positive nitrite; 1+ leukocyte esterase; 40-50 WBC; Moderate bacteria -Urine culture pending -Risk factors: urinary incontinence, immobile -History of multiple prior UTIs with E. Coli - good sensitivity to Rocephin -IV fluids as ordered -2gm rocephin given in ED - continue 1gm Leukocytosis -WBC 23.57-->16.98 -CRP 12.8 -Rocephin as above -Flagyl Q8Hr due to concern over possible colonic bacterial translocation -Likely 2/2 UTI -Continue to monitor Hypokalemia -Potassium 3.4 -Supplemented -Continue to monitor Chronic: impaired vision HLD hypertension hyperlipidemia Hx/o hypomagnesemia Hx/o hypokalemia diverticulosis GERD hemorrhoids Hx/o bowel resection Hx/o ileus Hx/o C. 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 Lynn
[2018-08-17] MEDS ORDERED: Sertraline 50 MG Tab PO SCH (09:00)
[2018-08-17] MEDS ORDERED: Lisinopril 10 MG Tab PO SCH (09:00)
[2018-08-17] MEDS: Enoxaparin 40 MG/0.4 ML Syringe SUBCUT SCH (09:19)
[2018-08-17] MEDS: Saccharomyces Boulardii (Probiotic) 250 MG Cap PO SCH ×2 (09:20→20:55)
[2018-08-17] MEDS: amLODIPine 5 MG Tab PO SCH ×2 (09:20→21:30)
[2018-08-17] MEDS: metroNIDAZOLE/Normal Saline 500 MG in Premix Bag 1 BAG IV SCH ×2 (09:22→18:26)
[2018-08-17] MEDS ORDERED: Ondansetron 4 MG/2 ML SDV IVPUSH PRN (09:23)
[2018-08-17] MEDS: Potassium Chloride 10 MEQ in Premix Bag 1 BAG IV SCH ×4 (11:08→14:31)
--- NOTE | 2018-08-17 11:33 | PCM.CONS ---
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 In the ER, a rectal tube was placed, with relief of patient's symptoms. Currently, the patient has improvement in symptoms. Denies pain, based on the interpretation of the patient's family ( and son in the room). Patient had two recent admissions with ileus/constipation as follows: 02/22/2018 - 03/18/2018: Admitted with UTI, she was noted to have ileus with surgical consultation by Dr. Bedolla and Dr. Edouard. 07/29/2018 - 08/01/2018: Urosepsis and severe constipation - Related Data Allergies/Adverse Reactions: Allergies Allergy/AdvReac Type Severity Reaction Status Date / Time No Known Allergies Allergy Verified 08/16/18 16:21 Home Medications: Home Meds Acetaminophen [Tylenol Extra Strength] 500 mg PO Q8H PRN 02/22/18 [History] Ondansetron [Zofran ODT] 4 mg PO Q6HR PRN 02/22/18 [History] Sertraline [Zoloft] 100 mg PO DAILY 02/22/18 [History] Pantoprazole [ProTONIX] 40 mg PO DAILY #30 tab.cr 03/18/18 [Rx] Saccharomyces Boulardii [Florastor] 250 mg PO BID #60 cap 03/18/18 [Rx] Acetaminophen [Tylenol] 650 mg RECTAL Q4HR PRN 07/28/18 [History] Divalproex Sodium [Depakote Sprinkle] 125 mg PO BEDTIME 07/28/18 [History] Menthol/Camphor [Sarna Anti-Itch Lotion] 1 applic TOP ASDIRECTED PRN 07/28/18 [ History] Polyethylene Glycol 3350 [MiraLAX] 17 gram PO DAILY 07/28/18 [History] Lisinopril [Prinivil] 10 mg PO DAILY #30 tablet 08/01/18 [Rx] Sennosides/Docusate Sodium [Senokot-S Tablet] 1 each PO BID #60 tablet 08/01/18 [Rx] Simethicone 80 mg PO Q6H PRN #30 tab.chew 08/01/18 [Rx] Wheat Dextrin [Benefiber] 1 each PO ASDIRECTED #12 powd.pack 08/01/18 [Rx] amLODIPine [Norvasc] 5 mg PO BID #30 tablet 08/01/18 [Rx] hydroCHLOROthiazide [Hydrochlorothiazide] 12.5 mg PO BIDDIURETIC #60 cap [Rx] Past Medical History HEENT History: Reports: Impaired Vision Cardiovascular History: Reports: High Cholesterol, Hypertension Other Cardiovascular History: hyperlipidemia, hypomagnesmia, hypokalemia Respiratory History: Reports: SOB Gastrointestinal History: Reports: Diverticulosis, GERD, Hemorrhoids, Other ( See Below) Other Gastrointestinal History: bowel resection, nausea, ilius, C. 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 Psychiatric History: Reports: Anxiety, Dementia, Depression Endocrine/Metabolic History: Reports: Diabetes, Type II Other Endocrine/Metabolic History: with weight loss pt is not considered diabetic at this time Hematologic History: Reports: Anemia Other Hematologic History: low iron- no hx of transfusions Immunologic History: Reports: None Oncologic (Cancer) History: Reports: None Dermatologic History: Reports: Other (See Below) Other Dermatologic History: non-pressure chronic ulcer of skin - Infectious Disease History Infectious Disease History: Reports: C-Difficile - Past Surgical History Head Surgeries/Procedures: Reports: None HEENT Surgical History: Reports: None Cardiovascular Surgical History: Reports: None Respiratory Surgical History: Reports: None Female Surgical History: Reports: Hysterectomy, Tubal Ligation Neurological Surgical History: Reports: None Social & Family History - Family History Family Medical History: Unobtainable - Tobacco Use Smoking Status *Q: Never Smoker Second Hand Smoke Exposure: No - Caffeine Use Caffeine Use: Reports: None - Recreational Drug Use Recreational Drug Use: No - Living Situation & Occupation Living situation: Reports: , with Spouse Occupation: Disabled H&P Review of Systems - Review of Systems: Review Of Systems: Unable To Obtain Exam - Exam Exam: See Below - Vital Signs Vital Signs: Last Vital Signs Temp 37.0 C 08/17/18 07:24 Pulse 93 08/17/18 07:24 Resp 16 08/17/18 07:24 BP 111/58 L 08/17/18 09:20 Pulse Ox 95 08/17/18 07:24 Weight: 61.643 kg - Exam General: Other (Unable to communicate) GI/Abdominal Exam: Other (Mildly distended. Nontender. Well-healed infra- umbilical surgical scar.) Rectal (Female) Exam: Other (Rectal tube removed. External rectal exam revealed non-thrombosed external hemorrhoids. Digital rectal exam revealed no masses or stool burden. ) Extremities: Normal Inspection - Patient Data Lab Results Last 24 hrs: Laboratory Results - last 24 hr 08/16/18 08/16/18 08/16/18 Range/Units 17:05 17:05 17:05 WBC 23.57 H (3.98-10.04) K/mm3 RBC 5.56 H (3.98-5.22) M/mm3 Hgb 12.6 D (11.2-15.7) gm/L Hct 40.0 (34.1-44.9) % MCV 71.9 L (79.4-94.8) fl MCH 22.7 L (25.6-32.2) pg MCHC 31.5 L (32.2-35.5) g/dl RDW Std Deviation 48.9 H (36.4-46.3) fL Plt Count 330 (182-369) K/mm3 MPV 11.1 (9.4-12.3) fl Neut % (Auto) 93.2 H (34.0-71.1) % Lymph % (Auto) 2.5 L (19.3-51.7) % Br[place]ley % (Auto) 4.1 L (4.7-12.5) % Eos % (Auto) 0 L (0.7-5.8) Baso % (Auto) 0.0 L (0.1-1.2) % Neut # (Auto) 21.96 H (1.56-6.13) K/mm3 Lymph # (Auto) 0.58 L (1.18-3.74) K/mm3 Brantley # (Auto) 0.97 H (0.24-0.36) K/mm3 Eos # (Auto) 0.00 L (0.04-0.36) K/mm3 Baso # (Auto) 0.01 (0.01-0.08) K/mm3 Manual Slide Review Abnormal smear Sodium 136 (136-145) mEq/L Potassium 3.4 L (3.5-5.1) mEq/L Chloride 99 (98-107) mEq/L Carbon Dioxide 24 (21-32) mEq/L Anion Gap 16.4 H (5-15) BUN 22 H (7-18) mg/dL Creatinine 0.7 (0.55-1.02) mg/dL Est Cr Clr Drug Dosing 78.18 mL/min Estimated GFR (MDRD) > 60 (>60) mL/min BUN/Creatinine Ratio 31.4 H (14-18) Glucose 195 H (80-115) mg/dL Lactic Acid 1.6 (0.4-2.0) mmol/L Calcium 9.8 (8.5-10.1) mg/dL Magnesium (1.8-2.4) mg/dl Total Bilirubin 0.4 (0.2-1.0) mg/dL AST 13 L (15-37) U/L ALT 17 (14-59) U/L Alkaline Phosphatase 91 (46-116) U/L C-Reactive Protein (<1.0) mg/dL Total Protein 8.3 H (6.4-8.2) g/dl Albumin 3.6 (3.4-5.0) g/dl Globulin 4.7 gm/dL Albumin/Globulin Ratio 0.8 L (1-2) Lipase 166 (73-393) U/L Urine Color (Yellow) Urine Appearance (Clear) Urine pH (5.0-8.0) Ur Specific [place] (1.005-1.030) Urine Protein (Negative) Urine Glucose (UA) (Negative) Urine Ketones (Negative) Urine Occult Blood (Negative) Urine Nitrite (Negative) Urine Bilirubin (Negative) Urine Urobilinogen (0.2-1.0) Ur Leukocyte Esterase (Negative) Urine RBC (0-5) /hpf Urine WBC (0-5) /hpf Ur Squamous Epith Cells (0-5) /hpf Urine Bacteria (FEW) /hpf Urine Mucus (FEW) /hpf MRSA (PCR) 08/16/18 08/17/18 08/17/18 Range/Units 20:33 00:27 08:15 WBC 16.98 H (3.98-10.04) K/mm3 RBC 4.49 (3.98-5.22) M/mm3 Hgb 10.3 L D (11.2-15.7) gm/L Hct 33.1 L (34.1-44.9) % MCV 73.7 L (79.4-94.8) fl MCH 22.9 L (25.6-32.2) pg MCHC 31.1 L (32.2-35.5) g/dl RDW Std Deviation 49.2 H (36.4-46.3) fL Plt Count 266 (182-369) K/mm3 MPV 11.1 (9.4-12.3) fl Neut % (Auto) 86.5 H (34.0-71.1) % Lymph % (Auto) 8.2 L (19.3-51.7) % Brantley % (Auto) 4.9 (4.7-12.5) % Eos % (Auto) 0.1 L (0.7-5.8) Baso % (Auto) 0.1 (0.1-1.2) % Neut # (Auto) 14.69 H (1.56-6.13) K/mm3 Lymph # (Auto) 1.40 (1.18-3.74) K/mm3 Brantley # (Auto) 0.84 H (0.24-0.36) K/mm3 Eos # (Auto) 0.01 L (0.04-0.36) K/mm3 Baso # (Auto) 0.01 (0.01-0.08) K/mm3 Manual Slide Review Abnormal smear Sodium (136-145) mEq/L Potassium (3.5-5.1) mEq/L Chloride (98-107) mEq/L Carbon Dioxide (21-32) mEq/L Anion Gap (5-15) BUN (7-18) mg/dL Creatinine (0.55-1.02) mg/dL Est Cr Clr Drug Dosing mL/min Estimated GFR (MDRD) (>60) mL/min BUN/Creatinine Ratio (14-18) Glucose (80-115) mg/dL Lactic Acid (0.4-2.0) mmol/L Calcium (8.5-10.1) mg/dL Magnesium (1.8-2.4) mg/dl Total Bilirubin (0.2-1.0) mg/dL AST (15-37) U/L ALT (14-59) U/L Alkaline Phosphatase (46-116) U/L C-Reactive Protein (<1.0) mg/dL Total Protein (6.4-8.2) g/dl Albumin (3.4-5.0) g/dl Globulin gm/dL Albumin/Globulin Ratio (1-2) Lipase (73-393) U/L Urine Color Yellow (Yellow) Urine Appearance Slt cloudy H (Clear) Urine pH 5.5 (5.0-8.0) Ur Specific [place] 1.025 (1.005-1.030) Urine Protein Negative (Negative) Urine Glucose (UA) Negative (Negative) Urine Ketones Negative (Negative) Urine Occult Blood Trace-lysed H (Negative) Urine Nitrite Positive H (Negative) Urine Bilirubin Negative (Negative) Urine Urobilinogen 0.2 (0.2-1.0) Ur Leukocyte Esterase 1+ H (Negative) Urine RBC 0-5 (0-5) /hpf Urine WBC 40-50 H (0-5) /hpf Ur Squamous Epith Cells 0-5 (0-5) /hpf Urine Bacteria Moderate H (FEW) /hpf Urine Mucus Moderate H (FEW) /hpf MRSA (PCR) Negative 08/17/18 Range/Units 08:15 WBC (3.98-10.04) K/mm3 RBC (3.98-5.22) M/mm3 Hgb (11.2-15.7) gm/L Hct (34.1-44.9) % MCV (79.4-94.8) fl MCH (25.6-32.2) pg MCHC (32.2-35.5) g/dl RDW Std Deviation (36.4-46.3) fL Plt Count (182-369) K/mm3 MPV (9.4-12.3) fl Neut % (Auto) (34.0-71.1) % Lymph % (Auto) (19.3-51.7) % Brantley % (Auto) (4.7-12.5) % Eos % (Auto) (0.7-5.8) Baso % (Auto) (0.1-1.2) % Neut # (Auto) (1.56-6.13) K/mm3 Lymph # (Auto) (1.18-3.74) K/mm3 [place]ley # (Auto) (0.24-0.36) K/mm3 Eos # (Auto) (0.04-0.36) K/mm3 Baso # (Auto) (0.01-0.08) K/mm3 Manual Slide Review Sodium 142 (136-145) mEq/L Potassium 3.4 L (3.5-5.1) mEq/L Chloride 107 (98-107) mEq/L Carbon Dioxide 26 (21-32) mEq/L Anion Gap 12.4 (5-15) BUN 20 H (7-18) mg/dL Creatinine 0.6 (0.55-1.02) mg/dL Est Cr Clr Drug Dosing 88.48 mL/min Estimated GFR (MDRD) > 60 (>60) mL/min BUN/Creatinine Ratio 33.3 H (14-18) Glucose 110 (80-115) mg/dL Lactic Acid (0.4-2.0) mmol/L Calcium 8.7 (8.5-10.1) mg/dL Magnesium 1.8 (1.8-2.4) mg/dl Total Bilirubin (0.2-1.0) mg/dL AST (15-37) U/L ALT (14-59) U/L Alkaline Phosphatase (46-116) U/L C-Reactive Protein 12.0 H* (<1.0) mg/dL Total Protein (6.4-8.2) g/dl Albumin (3.4-5.0) g/dl Globulin gm/dL Albumin/Globulin Ratio (1-2) Lipase (73-393) U/L Urine Color (Yellow) Urine Appearance (Clear) Urine pH (5.0-8.0) Ur Specific [place] (1.005-1.030) Urine Protein (Negative) Urine Glucose (UA) (Negative) Urine Ketones (Negative) Urine Occult Blood (Negative) Urine Nitrite (Negative) Urine Bilirubin (Negative) Urine Urobilinogen (0.2-1.0) Ur Leukocyte Esterase (Negative) Urine RBC (0-5) /hpf Urine WBC (0-5) /hpf Ur Squamous Epith Cells (0-5) /hpf Urine Bacteria (FEW) /hpf Urine Mucus (FEW) /hpf MRSA (PCR) Result Diagrams: 08/17/18 08:15 08/17/18 08:15 Imaging Impressions Last 24 hrs: Order Procedure: [id number] CT/Abdomen Pelvis wo Cont Date of Exam: 08/16/18 Reason for Exam: abd pain, vomiting, dilated abd, megacolon? Order Requisition#: [id number] CT abdomen and pelvis Technique: Multiple axial sections were obtained from above the dome of the diaphragm inferiorly through the pubic symphysis. Intravenous and oral contrast was not utilized. Comparison: Prior abdominal x-ray performed earlier on same day (6:32 PM). Prior abdominal and pelvic CT study of 07/28/18 is also available. Findings: Diffuse gaseous dilatation is seen of colon. Fair amount of stool is noted within the right colon as well as within the rectum. Colonic dilatation is most prominent within the transverse colon with diameter of 6.6 cm. Small portion of the visualized lung bases are clear. Noncontrast appearance of the liver and spleen appears within normal limits. Mild coronary artery calcification is seen. Small calcified gallstone is noted within the gallbladder. Adrenal glands show no nodule. Kidneys show small fat-containing lesion on the right side most likely due to angiomyolipoma measuring 1.5 cm. Noncontrast appearance of the kidneys is otherwise unremarkable. Visualized portions of the pancreas show no discrete abnormality. Aorta shows slight atherosclerotic calcification without aneurysm. No retroperitoneal adenopathy or mesenteric abnormalities are seen. No pelvic mass or adenopathy is seen. Bone window settings shows diffuse degenerative change within the spine with mild scoliosis. Impression: 1. Increased stool within the right colon and within the rectum. 2. Diffuse gaseous dilatation of colon compatible with ileus or possibly obstipation. Maximum dilatation of the colon is within the transverse region measuring 6.6 cm. 3. Other incidental findings as described above. Diagnostic code #3 Dictated by: Papa López MD 08/16/18 at 1951 Order Procedure: [id number] CR/Abdomen 2V AP Flat Upright Date of Exam: 08/16/18 Reason for Exam: Abd pain, distension, vomiting Order Requisition#: [id number] Abdomen: Supine and decubitus views of the abdomen were obtained. Comparison: Previous abdominal x-rays are available with most recent studies dated 08/01/18, 07/31/18 and 07/30/18. Diffuse gaseous distention is noted of the colon. Mild amount of stool is seen within the rectum. I believe the findings are most likely due to colonic ileus. No significant small bowel dilatation is seen. Bony structures show slight degenerative change within the spine with mild scoliosis. No free air is seen. Impression: 1. Gaseous dilatation of colon with mild amount of stool within the rectum. Findings most likely due to colonic ileus. 2. Other incidental findings. Diagnostic code #3 Dictated by: Papa López MD 08/16/18 at 1912 Consult PN Assessment/Plan Procedures: Procedures AIRWAY INHALATION TREATMENT (02/22/18) APPLY LONG ARM SPLINT (05/31/14) ASSAY OF LACTIC ACID (07/28/18) ASSAY OF LIPASE (07/28/18) ASSAY OF MAGNESIUM (07/28/18) ASSAY OF NATRIURETIC PEPTIDE (02/22/18) BL SMEAR W/DIFF WBC COUNT (02/22/18) BLOOD CULTURE FOR BACTERIA (07/28/18) C DIFF AMPLIFIED PROBE (07/28/18) C-REACTIVE PROTEIN (02/22/18) CINE/VID X-RAY THROAT/ESOPH (02/22/18) COMPLETE CBC AUTOMATED (02/22/18) COMPLETE CBC W/AUTO DIFF WBC (07/28/18) COMPREHEN METABOLIC PANEL (07/28/18) CT ABD & PELV W/CONTRAST (07/28/18) CT HEAD/BRAIN W/O DYE (02/12/14) CULTURE AEROBIC IDENTIFY (02/22/18) CULTURE OTHR SPECIMN AEROBIC (02/22/18) ELECTROCARDIOGRAM TRACING (07/28/18) EMERGENCY DEPT VISIT (07/28/18) EMERGENCY DEPT VISIT (10/25/17) EMERGENCY DEPT VISIT (02/12/14) EVALUATE SWALLOWING FUNCTION (02/22/18) FLUOROSCOPY <1 HR PHYS/QHP (06/05/14) GAIT TRAINING THERAPY (09/04/15) GLUCOSE BLOOD TEST (02/22/18) HELICOBACTER PYLORI ANTIBODY (02/22/18) HYDRATE IV INFUSION ADD-ON (07/28/18) IMMUNIZATION ADMIN (02/12/14) INFLUENZA ASSAY W/OPTIC (02/22/18) LEUKOCYTE ASSESSMENT FECAL (02/22/18) MANUAL THERAPY 1/> REGIONS (02/22/18) MEASURE BLOOD OXYGEN LEVEL (02/22/18) MEASURE BLOOD OXYGEN LEVEL (02/22/18) METABOLIC PANEL TOTAL CA (07/28/18) MICROBE SUSCEPTIBLE DISK (02/22/18) MICROBE SUSCEPTIBLE MAYA (07/28/18) MOTION FLUOROSCOPY/SWALLOW (02/22/18) MR-STAPH DNA AMP PROBE (07/28/18) MYCOPLASMA ANTIBODY (02/22/18) NEUROMUSCULAR REEDUCATION (02/22/18) ORAL FUNCTION THERAPY (02/22/18) OT EVAL MOD COMPLEX 45 MIN (02/22/18) OT EVALUATION (07/03/14) PROTHROMBIN TIME (02/12/14) PT EVAL MOD COMPLEX 30 MIN (02/22/18) PT EVALUATION (09/04/15) ROUTINE VENIPUNCTURE (07/28/18) RPR F/E/E/N/L/M 2.6-5.0 CM (12/04/15) RPR S/N/AX/GEN/TRNK2.6-7.5CM (02/12/14) TDAP VACCINE 7 YRS/> IM (02/12/14) THER/PROPH/DIAG INJ IV PUSH (04/08/18) THER/PROPH/DIAG INJ SC/IM (05/31/14) THER/PROPH/DIAG IV INF INIT (07/28/18) THERAPEUTIC ACTIVITIES (02/22/18) THERAPEUTIC EXERCISES (02/22/18) TREAT HUMERUS FRACTURE (06/05/14) TTE W/DOPPLER COMPLETE (02/22/18) TX/PRO/DX INJ NEW DRUG ADDON (02/22/18) ULTRASOUND THERAPY (09/12/14) URINALYSIS AUTO W/O SCOPE (02/22/18) URINALYSIS AUTO W/SCOPE (07/28/18) URINE BACTERIA CULTURE (07/28/18) URINE CULTURE/COLONY COUNT (07/28/18) X-RAY EXAM ABDOMEN 1 VIEW (07/28/18) X-RAY EXAM CHEST 1 VIEW (04/08/18) X-RAY EXAM CHEST 2 VIEWS (02/22/18) X-RAY EXAM OF ELBOW (05/31/14) X-RAY EXAM OF FOOT (02/22/18) X-RAY EXAM OF HUMERUS (06/06/15) X-RAY EXAM OF SHOULDER (08/01/15) X-RAYS BONE SURVEY COMPLETE (07/10/15) (1) Constipation SNOMED Code(s): 05906793 Code(s): K59.00 - CONSTIPATION, UNSPECIFIED Current Visit: No Qualifiers: Constipation type: other constipation type Qualified Code(s): K59.09 - Other constipation Problem List Initiated/Reviewed/Updated: Yes Plan: 67 yo female, h/o multiple medical problems, 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 Improvement with rectal tube (placed in ED). CT scan images and radiology report reviewed. Stool burden in the RIGHT colon and rectum, with colonic dilatation, especially in the transverse colon. Small bowel appears unremarkable. - Rectal tube removed to conduct thorough rectal exam. No stool burden on rectal exam, so no manual disimpaction needed. - Fleets enema administered at the bedside following rectal exam. - May repeat Fleets enema today. - Upon discharge, will need aggressive bowel regimen, with stool softeners, suppository, and laxatives. - Repeat abdominal X-ray. If colonic distention persistent, would recommend replacement of rectal tube. - Leukocytosis (23k yesterday down to 17k today). Agree with coverage of gram negative and anaerobes, given potential for colonic bacterial translocation. Will continue to follow. Victorino Lainez M.D., F.A.C.S. General Surgery
[2018-08-17 13:44] LABS: HEMOGLOBIN A1C 5.8 % (4.50-6.20)
[2018-08-17] MEDS: Hydrochlorothiazide 12.5 MG Cap PO SCH (14:33)
--- NOTE | 2018-08-17 15:21 | CR ---
Abdomen: Supine view of the abdomen was obtained. Comparison: Prior abdominal x-ray of 08/16/18. Gas dilated transverse colon is seen. Lesser gas is seen within other portions of colon with other findings being improved from previous study. Scoliosis and degenerative change is noted within the spine. Calcifications are seen within the pelvis compatible with phleboliths. Impression: 1. Continuing gaseous dilatation of transverse colon. Decreased gaseous dilatation of other portions of the colon from prior study. 2. Other incidental findings. Diagnostic code #3
[2018-08-17] MEDS: Divalproex Sodium Delayed-Release 125 MG Cap.Sprink PO SCH (20:55)
[2018-08-17] MEDS ORDERED: cefTRIAXone 1 GM in Sodium Chloride 0.9% 100 ML IV SCH (21:00)
[2018-08-18] MEDS: metroNIDAZOLE/Normal Saline 500 MG in Premix Bag 1 BAG IV SCH ×2 (00:53→09:23)
[2018-08-18] MEDS: Hydrochlorothiazide 12.5 MG Cap PO SCH (06:03)
[2018-08-18] MEDS: Sodium Chloride 0.9% 1,000 ML IV SCH (06:07)
--- NOTE | 2018-08-18 06:24 | PCM.PN ---
- General Info Date of Service: 08/18/18 Admission Dx/Problem (Free Text): Admission Diagnosis/Problem Admission Diagnosis/Problem Ileus Functional Status: Reports: Pain Controlled. Denies: Tolerating Diet (NPO), Ambulating, Urinating, New Symptoms - Review of Systems General: Reports: Weakness (chronic ). Denies: Fever, Chills HEENT: Reports: No Symptoms. Denies: Headaches Pulmonary: Reports: No Symptoms. Denies: Shortness of Breath, Cough, Wheezing Cardiovascular: Reports: No Symptoms. Denies: Chest Pain, Palpitations Gastrointestinal: Reports: Diarrhea (2/2 enemas; slowing as day goes on ). Denies: Abdominal Pain, Constipation, Nausea, Vomiting Genitourinary: Reports: No Symptoms. Denies: Pain Musculoskeletal: Reports: No Symptoms Skin: Reports: No Symptoms. Denies: Cyanosis Neurological: Reports: Pre-Existing Deficit, Trouble Speaking, Difficulty Walking, Weakness, Gait Disturbance Psychiatric: Reports: No Symptoms - Patient Data Vitals - Most Recent: Last Vital Signs Temp 98.1 F 08/18/18 03:24 Pulse 75 08/18/18 03:24 Resp 18 08/18/18 03:24 BP 121/57 L 08/18/18 03:24 Pulse Ox 97 08/18/18 03:24 Weight - Most Recent: 139 lb I&O - Last 24 Hours: Intake & Output 08/17/18 08/17/18 08/18/18 14:59 22:59 06:59 Intake Total 2194 1477 Output Total 300 800 Balance 1894 677 Lab Results Last 24 Hours: Laboratory Results - last 24 hr 08/17/18 08/17/18 08/17/18 Range/Units 08:15 08:15 08:15 WBC 16.98 H (3.98-10.04) K/mm3 RBC 4.49 (3.98-5.22) M/mm3 Hgb 10.3 L D (11.2-15.7) gm/L Hct 33.1 L (34.1-44.9) % MCV 73.7 L (79.4-94.8) fl MCH 22.9 L (25.6-32.2) pg MCHC 31.1 L (32.2-35.5) g/dl RDW Std Deviation 49.2 H (36.4-46.3) fL Plt Count 266 (182-369) K/mm3 MPV 11.1 (9.4-12.3) fl Neut % (Auto) 86.5 H (34.0-71.1) % Lymph % (Auto) 8.2 L (19.3-51.7) % [place] % (Auto) 4.9 (4.7-12.5) % Eos % (Auto) 0.1 L (0.7-5.8) Baso % (Auto) 0.1 (0.1-1.2) % Neut # (Auto) 14.69 H (1.56-6.13) K/mm3 Lymph # (Auto) 1.40 (1.18-3.74) K/mm3 [place] # (Auto) 0.84 H (0.24-0.36) K/mm3 Eos # (Auto) 0.01 L (0.04-0.36) K/mm3 Baso # (Auto) 0.01 (0.01-0.08) K/mm3 Manual Slide Review Abnormal smear Sodium 142 (136-145) mEq/L Potassium 3.4 L (3.5-5.1) mEq/L Chloride 107 (98-107) mEq/L Carbon Dioxide 26 (21-32) mEq/L Anion Gap 12.4 (5-15) BUN 20 H (7-18) mg/dL Creatinine 0.6 (0.55-1.02) mg/dL Est Cr Clr Drug Dosing 88.48 mL/min Estimated GFR (MDRD) > 60 (>60) mL/min BUN/Creatinine Ratio 33.3 H (14-18) Glucose 110 (80-115) mg/dL POC Glucose (80-115) mg/dL Hemoglobin A1c 5.80 (4.50-6.20) % Calcium 8.7 (8.5-10.1) mg/dL Magnesium 1.8 (1.8-2.4) mg/dl C-Reactive Protein 12.0 H* (<1.0) mg/dL 08/17/18 08/18/18 Range/Units 18:12 01:07 WBC (3.98-10.04) K/mm3 RBC (3.98-5.22) M/mm3 Hgb (11.2-15.7) gm/L Hct (34.1-44.9) % MCV (79.4-94.8) fl MCH (25.6-32.2) pg MCHC (32.2-35.5) g/dl RDW Std Deviation (36.4-46.3) fL Plt Count (182-369) K/mm3 MPV (9.4-12.3) fl Neut % (Auto) (34.0-71.1) % Lymph % (Auto) (19.3-51.7) % [place] % (Auto) (4.7-12.5) % Eos % (Auto) (0.7-5.8) Baso % (Auto) (0.1-1.2) % Neut # (Auto) (1.56-6.13) K/mm3 Lymph # (Auto) (1.18-3.74) K/mm3 [place] # (Auto) (0.24-0.36) K/mm3 Eos # (Auto) (0.04-0.36) K/mm3 Baso # (Auto) (0.01-0.08) K/mm3 Manual Slide Review Sodium (136-145) mEq/L Potassium (3.5-5.1) mEq/L Chloride (98-107) mEq/L Carbon Dioxide (21-32) mEq/L Anion Gap (5-15) BUN (7-18) mg/dL Creatinine (0.55-1.02) mg/dL Est Cr Clr Drug Dosing mL/min Estimated GFR (MDRD) (>60) mL/min BUN/Creatinine Ratio (14-18) Glucose (80-115) mg/dL POC Glucose 99 87 (80-115) mg/dL Hemoglobin A1c (4.50-6.20) % Calcium (8.5-10.1) mg/dL Magnesium (1.8-2.4) mg/dl C-Reactive Protein (<1.0) mg/dL Jero Results Last 24 Hours: Microbiology 08/16/18 23:55 Aerobic Blood Culture - Preliminary Blood - Venous NO GROWTH AFTER 1 DAY Anaerobic Blood Culture - Preliminary NO GROWTH AFTER 1 DAY 08/16/18 23:45 Aerobic Blood Culture - Preliminary Blood - Venous - Lab Draw NO GROWTH AFTER 1 DAY Anaerobic Blood Culture - Preliminary NO GROWTH AFTER 1 DAY 08/16/18 20:33 Urine Culture - Preliminary Urine, Catheterized Gram Negative Rods Med Orders - Current: Current Medications Acetaminophen (Tylenol) 650 mg PO Q4H PRN PRN Reason: Pain (Mild 1-3)/fever Amlodipine Besylate (Norvasc) 5 mg PO BID [facility] Last Admin: 08/17/18 21:30 Dose: 5 mg Divalproex Sodium (Depakote Sprinkle) 125 mg PO BEDTIME [facility] Last Admin: 08/17/18 20:55 Dose: 125 mg Enoxaparin Sodium (Lovenox) 40 mg SUBCUT DAILY [facility] Last Admin: 08/17/18 09:19 Dose: 40 mg Hydrochlorothiazide (Hydrochlorothiazide) 12.5 mg PO BIDDIURETIC [facility] Last Admin: 08/18/18 06:03 Dose: 12.5 mg Sodium Chloride (Normal Saline) 1,000 mls @ 100 mls/hr IV ASDIRECTED [facility] Last Admin: 08/18/18 06:07 Dose: 100 mls/hr Ceftriaxone Sodium 1 gm/ (Sodium Chloride) 100 mls @ 200 mls/hr IV Q24H [facility] Last Admin: 08/17/18 20:55 Dose: 200 mls/hr Metronidazole 500 mg/ Premix 100 mls @ 100 mls/hr IV Q8H [facility] Last Admin: 08/18/18 00:53 Dose: 100 mls/hr Lisinopril (Prinivil) 10 mg PO DAILY [facility] Last Admin: 08/17/18 09:19 Dose: 10 mg Ondansetron HCl (Zofran) 4 mg IVPUSH Q6HR PRN PRN Reason: Nausea/Vomiting Saccharomyces Boulardii (Florastor) 250 mg PO BID [facility] Last Admin: 08/17/18 20:55 Dose: 250 mg Sertraline HCl (Zoloft) 100 mg PO DAILY [facility] Simethicone (Simethicone) 80 mg PO Q6H PRN PRN Reason: Gas Sodium Chloride (Saline Flush) 10 ml FLUSH ASDIRECTED PRN PRN Reason: Keep Vein Open Last Admin: 08/16/18 17:08 Dose: 10 ml Discontinued Medications Sodium Chloride (Normal Saline) 500 mls @ 999 mls/hr IV .BOLUS ONE Stop: 08/16/18 17:27 Last Admin: 08/16/18 17:07 Dose: 999 mls/hr Ceftriaxone Sodium 2 gm/ (Sodium Chloride) 100 mls @ 200 mls/hr IV ONETIME ONE Stop: 08/16/18 21:38 Last Admin: 08/16/18 21:18 Dose: 200 mls/hr Metronidazole 500 mg/ Premix 100 mls @ 100 mls/hr IV ONETIME ONE Stop: 08/16/18 22:23 Last Admin: 08/16/18 21:54 Dose: 100 mls/hr Potassium Chloride 10 meq/ (Premix) 100 mls @ 100 mls/hr IV Q1H [facility] Stop: 08/17/18 12:44 Last Admin: 08/17/18 14:31 Dose: 100 mls/hr Non-Formulary Medication (Camphor/Menthol) 1 applic TOP ASDIRECTED PRN PRN Reason: Dryness Ondansetron HCl (Zofran) 4 mg IVPUSH ONETIME ONE Stop: 08/16/18 16:58 Last Admin: 08/16/18 17:06 Dose: 4 mg Ondansetron HCl (Zofran Odt) 4 mg PO Q6H PRN PRN Reason: Nausea Ondansetron HCl (Zofran) 4 mg IVPUSH Q6H PRN PRN Reason: Nausea/Vomiting Sertraline HCl (Zoloft) 150 mg PO DAILY [facility] Last Admin: 08/17/18 09:20 Dose: 150 mg - Exam Quality Assessment: DVT Prophylaxis General: Alert HEENT: Pupils Equal, Pupils Reactive Neck: Supple Lungs: Clear to Auscultation, Normal Respiratory Effort Cardiovascular: Regular Rate, Regular Rhythm GI/Abdominal Exam: Soft, No Organomegaly, No Distention, Tender (generalized ), Abnormal Bowel Sounds (Female) Exam: Deferred Extremities: No Pedal Edema, Normal Capillary Refill, Other (Contractures) Peripheral Pulses: 2+: Radial (L), Radial (R), Dorsalis Pedis (L), Dorsalis Pedis (R) Skin: Warm, Dry, Intact Neurological: No New Focal Deficit Psy/Mental Status: Alert - Problem List & Annotations (1) UTI (urinary tract infection) SNOMED Code(s): 67729877 Code(s): N39.0 - URINARY TRACT INFECTION, SITE NOT SPECIFIED Status: Acute Priority: High Current Visit: Yes Qualifiers: Urinary tract infection type: site unspecified Hematuria presence: without hematuria Qualified Code(s): N39.0 - Urinary tract infection, site not specified (2) Ileus SNOMED Code(s): 869913708 Code(s): K56.7 - ILEUS, UNSPECIFIED Status: Chronic Priority: High Current Visit: Yes Annotation/Comment:: - Acute on Chronic (3) Hypokalemia SNOMED Code(s): 89710579 Code(s): E87.6 - HYPOKALEMIA Status: Acute Priority: High Current Visit : Yes - Problem List Review Problem List Initiated/Reviewed/Updated: Yes - My Orders Last 24 Hours: My Active Orders 08/17/18 07:19 Height and Weight [RC] 04 Up to Chair [RC] BID 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 [CONS] Routine Consult to Spiritual Care [CONS] Routine Acetaminophen [Tylenol] 650 mg PO Q4H PRN 08/17/18 07:20 Intake and Output [RC] 04,16 Oxygen Therapy [RC] PRN Pulse Oximetry [RC] PRN VTE/DVT Education [RC] DAILY Vital Signs [RC] 03,09,15,21 08/17/18 07:29 Simethicone 80 mg PO Q6H PRN 08/17/18 09:00 Enoxaparin [Lovenox] 40 mg SUBCUT DAILY Lisinopril [Prinivil] 10 mg PO DAILY Saccharomyces Boulardii [Florastor] 250 mg PO BID amLODIPine [Norvasc] 5 mg PO BID metroNIDAZOLE/Normal Saline [Flagyl 500 MG in NS 100 ML] 500 mg Premix Bag 1 bag IV Q8H 08/17/18 13:25 Consult to Occupational Therapy [OT Evaluation and Treatment] [CONS] Routine 08/17/18 14:00 hydroCHLOROthiazide 12.5 mg PO BIDDIURETIC 08/17/18 14:01 Blood Glucose Check, Bedside [RC] 06,12,18,00 08/17/18 21:00 Divalproex Sodium [Depakote Sprinkle] 125 mg PO BEDTIME cefTRIAXone [Rocephin] 1 gm Sodium Chloride 0.9% [Normal Saline] 100 ml IV Q24H 08/18/18 05:11 BASIC METABOLIC PANEL,BMP [CHEM] AM CBC WITH AUTO DIFF [HEME] AM CRP [C-REACTIVE PROTEIN] [CHEM] AM MAGNESIUM [CHEM] AM 08/18/18 09:00 Sertraline [Zoloft] 100 mg PO DAILY 08/19/18 05:11 BASIC METABOLIC PANEL,BMP [CHEM] AM CBC WITH AUTO DIFF [HEME] AM CRP [C-REACTIVE PROTEIN] [CHEM] AM MAGNESIUM [CHEM] AM 08/20/18 05:11 BASIC METABOLIC PANEL,BMP [CHEM] AM CBC WITH AUTO DIFF [HEME] AM CRP [C-REACTIVE PROTEIN] [CHEM] AM MAGNESIUM [CHEM] AM 08/21/18 05:11 BASIC METABOLIC PANEL,BMP [CHEM] AM CBC WITH AUTO DIFF [HEME] AM CRP [C-REACTIVE PROTEIN] [CHEM] AM MAGNESIUM [CHEM] AM - Plan Plan:: I/P: Acute: Ileus vs. distention 2/2 constipation -Reported abdominal pain, distention, decreased oral intake, and vomiting -Multiple prior episodes of ileus -CT scan in ED: * Increased stool within the right colon and within the rectum. * Diffuse gaseous dilatation of colon compatible with ileus or possibly obstipation. Maximum dilatation of the colon is within the transverse region measuring 6.6 cm. * Other incidental findings as described above. -Abdominal X-ray in ED: * Gaseous dilatation of colon with mild amount of stool within the rectum. Findings most likely due to colonic ileus. * Other incidental findings. -Rectal tube placed in ED with relief -Dr. Lim, general surgeon consulted -Rectal exam performed at bedside with no stool or mass noted, fleets enema administered -Recommends repeat abdominal x-ray - improved distension, pending formal read -Recommends continued rectal tube -Recommends repeat enemas as needed -Recommends aggressive bowel regimen at discharge -Recommends continued Abx treatment due to leukocytosis as below -Repeat Abdominal x-ray shows improved gaseous distention UTI -UA: Positive nitrite; 1+ leukocyte esterase; 40-50 WBC; Moderate bacteria -Urine culture - gram negative rods so far -Risk factors: urinary incontinence, immobile -History of multiple prior UTIs with E. Coli - good sensitivity to Rocephin -IV fluids as ordered -2gm rocephin given in ED - continue 1gm Hypokalemia -Potassium 3.4-->2.6 -Supplemented -Continue to monitor Hypomagnesemia -Magnesium 1.6 -Supplemented -Continue to monitor Resolved: S/P Leukocytosis -WBC 23.57-->16.98-->8.72 -CRP 12.8-->11.8 -Rocephin as above -Flagyl Q8Hr due to concern over possible colonic bacterial translocation -Likely 2/2 UTI -Continue to monitor Chronic: impaired vision HLD hypertension hyperlipidemia Hx/o hypomagnesemia Hx/o hypokalemia diverticulosis GERD hemorrhoids Hx/o bowel resection Hx/o ileus Hx/o C. 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 Lynn
[2018-08-18] MEDS ORDERED: Magnesium Sulfate/Water 2 GM in Premix Bag 1 BAG IV ONE (07:50)
[2018-08-18] MEDS: Sertraline 50 MG Tab PO SCH (08:59)
[2018-08-18] MEDS: amLODIPine 5 MG Tab PO SCH ×2 (08:59→22:14)
[2018-08-18] MEDS: Saccharomyces Boulardii (Probiotic) 250 MG Cap PO SCH ×2 (08:59→22:13)
[2018-08-18] MEDS: Enoxaparin 40 MG/0.4 ML Syringe SUBCUT SCH (09:00)
[2018-08-18] MEDS: Dextrose 5%-0.9% NaCl with KCl 1,000 ML IV SCH ×2 (09:00→22:11)
[2018-08-18] MEDS: Potassium Chloride 10 MEQ in Premix Bag 1 BAG IV SCH ×6 (09:02→14:28)
--- NOTE | 2018-08-18 10:23 | CR ---
Abdomen: Supine view of the abdomen was obtained. Comparison: Previous abdominal x-ray of 08/17/18. Gaseous dilatation of portions of the colon are seen. Transverse colon appears slightly less dilated than on prior exam. No rectal gas is seen. Other portions of the study are stable. Impression: 1. Mild gaseous dilatation of the colon which appears slightly improved from previous exam. Diagnostic code #3
--- NOTE | 2018-08-18 13:08 | PCM.CONS ---
H&P History of Present Illness - General Date of Service: 08/18/18 Admit Problem/Dx: Admission Diagnosis/Problem Admission Diagnosis/Problem constipation Source of Information: Patient History Limitations: Reports: Other (cognitive impairment) - Related Data Allergies/Adverse Reactions: Allergies Allergy/AdvReac Type Severity Reaction Status Date / Time No Known Allergies Allergy Verified 08/16/18 16:21 Home Medications: Home Meds Acetaminophen [Tylenol Extra Strength] 500 mg PO Q8H PRN 02/22/18 [History] Ondansetron [Zofran ODT] 4 mg PO Q6HR PRN 02/22/18 [History] Sertraline [Zoloft] 100 mg PO DAILY 02/22/18 [History] Pantoprazole [ProTONIX] 40 mg PO DAILY #30 tab.cr 03/18/18 [Rx] Saccharomyces Boulardii [Florastor] 250 mg PO BID #60 cap 03/18/18 [Rx] Acetaminophen [Tylenol] 650 mg RECTAL Q4HR PRN 07/28/18 [History] Divalproex Sodium [Depakote Sprinkle] 125 mg PO BEDTIME 07/28/18 [History] Menthol/Camphor [Sarna Anti-Itch Lotion] 1 applic TOP ASDIRECTED PRN 07/28/18 [ History] Polyethylene Glycol 3350 [MiraLAX] 17 gram PO DAILY 07/28/18 [History] Lisinopril [Prinivil] 10 mg PO DAILY #30 tablet 08/01/18 [Rx] Sennosides/Docusate Sodium [Senokot-S Tablet] 1 each PO BID #60 tablet 08/01/18 [Rx] Simethicone 80 mg PO Q6H PRN #30 tab.chew 08/01/18 [Rx] Wheat Dextrin [Benefiber] 1 each PO ASDIRECTED #12 powd.pack 08/01/18 [Rx] amLODIPine [Norvasc] 5 mg PO BID #30 tablet 08/01/18 [Rx] hydroCHLOROthiazide [Hydrochlorothiazide] 12.5 mg PO BIDDIURETIC #60 cap [Rx] Past Medical History HEENT History: Reports: Impaired Vision Cardiovascular History: Reports: High Cholesterol, Hypertension Other Cardiovascular History: hyperlipidemia, hypomagnesmia, hypokalemia Respiratory History: Reports: SOB Gastrointestinal History: Reports: Diverticulosis, GERD, Hemorrhoids, Other ( See Below) Other Gastrointestinal History: bowel resection, nausea, ilius, C. 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: Musculoskeletal History: Reports: Osteoarthritis, Other (See Below) Other Musculoskeletal History: elbow surgery, hx chronic ulceration Neurological History: Reports: Head Trauma, Seizure Other Neuro History: Traumatic Encephalopathy, Memory Loss, 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 Psychiatric History: Reports: Anxiety, Dementia, Depression Endocrine/Metabolic History: Reports: Diabetes, Type II Other Endocrine/Metabolic History: with weight loss pt is not considered diabetic at this time Hematologic History: Reports: Anemia Other Hematologic History: low iron- no transfusions Immunologic History: Reports: None Oncologic (Cancer) History: Reports: None Dermatologic History: Reports: Other (See Below) Other Dermatologic History: non-pressure chronic ulcer of skin - Infectious Disease History Infectious Disease History: Reports: C-Difficile - Past Surgical History Female Surgical History: Reports: Hysterectomy, Tubal Ligation Social & Family History - Family History Family Medical History: Unobtainable - Tobacco Use Smoking Status *Q: Never Smoker Second Hand Smoke Exposure: No - Caffeine Use Caffeine Use: Reports: None - Recreational Drug Use Recreational Drug Use: No - Living Situation & Occupation Living situation: Reports: , with Spouse Occupation: Disabled Exam - Vital Signs Vital Signs: Last Vital Signs Temp 36.6 C 08/18/18 07:24 Pulse 71 08/18/18 07:24 Resp 18 08/18/18 07:24 BP 114/78 08/18/18 08:59 Pulse Ox 97 08/18/18 07:24 Weight: 63.049 kg - Patient Data Lab Results Last 24 hrs: Laboratory Results - last 24 hr 08/17/18 08/17/18 08/18/18 Range/Units 08:15 18:12 01:07 WBC (3.98-10.04) K/mm3 RBC (3.98-5.22) M/mm3 Hgb (11.2-15.7) gm/L Hct (34.1-44.9) % MCV (79.4-94.8) fl MCH (25.6-32.2) pg MCHC (32.2-35.5) g/dl RDW Std Deviation (36.4-46.3) fL Plt Count (182-369) K/mm3 MPV (9.4-12.3) fl Neut % (Auto) (34.0-71.1) % Lymph % (Auto) (19.3-51.7) % [place] % (Auto) (4.7-12.5) % Eos % (Auto) (0.7-5.8) Baso % (Auto) (0.1-1.2) % Neut # (Auto) (1.56-6.13) K/mm3 Lymph # (Auto) (1.18-3.74) K/mm3 [place] # (Auto) (0.24-0.36) K/mm3 Eos # (Auto) (0.04-0.36) K/mm3 Baso # (Auto) (0.01-0.08) K/mm3 Manual Slide Review Sodium (136-145) mEq/L Potassium (3.5-5.1) mEq/L Chloride (98-107) mEq/L Carbon Dioxide (21-32) mEq/L Anion Gap (5-15) BUN (7-18) mg/dL Creatinine (0.55-1.02) mg/dL Est Cr Clr Drug Dosing mL/min Estimated GFR (MDRD) (>60) mL/min BUN/Creatinine Ratio (14-18) Glucose (80-115) mg/dL POC Glucose 99 87 (80-115) mg/dL Hemoglobin A1c 5.80 (4.50-6.20) % Calcium (8.5-10.1) mg/dL Magnesium (1.8-2.4) mg/dl C-Reactive Protein (<1.0) mg/dL 08/18/18 08/18/18 08/18/18 Range/Units 06:23 06:25 06:25 WBC 8.72 (3.98-10.04) K/mm3 RBC 4.30 (3.98-5.22) M/mm3 Hgb 9.8 L (11.2-15.7) gm/L Hct 31.8 L (34.1-44.9) % MCV 74.0 L (79.4-94.8) fl MCH 22.8 L (25.6-32.2) pg MCHC 30.8 L (32.2-35.5) g/dl RDW Std Deviation 48.8 H (36.4-46.3) fL Plt Count 230 (182-369) K/mm3 MPV 11.4 (9.4-12.3) fl Neut % (Auto) 79.1 H (34.0-71.1) % Lymph % (Auto) 14.9 L (19.3-51.7) % [place] % (Auto) 5.2 (4.7-12.5) % Eos % (Auto) 0.5 L (0.7-5.8) Baso % (Auto) 0.1 (0.1-1.2) % Neut # (Auto) 6.90 H (1.56-6.13) K/mm3 Lymph # (Auto) 1.30 (1.18-3.74) K/mm3 [place] # (Auto) 0.45 H (0.24-0.36) K/mm3 Eos # (Auto) 0.04 (0.04-0.36) K/mm3 Baso # (Auto) 0.01 (0.01-0.08) K/mm3 Manual Slide Review Abnormal smear Sodium 145 (136-145) mEq/L Potassium 2.6 L (3.5-5.1) mEq/L Chloride 110 H (98-107) mEq/L Carbon Dioxide 23 (21-32) mEq/L Anion Gap 14.6 (5-15) BUN 14 (7-18) mg/dL Creatinine 0.5 L (0.55-1.02) mg/dL Est Cr Clr Drug Dosing 106.17 mL/min Estimated GFR (MDRD) > 60 (>60) mL/min BUN/Creatinine Ratio 28.0 H (14-18) Glucose 87 (80-115) mg/dL POC Glucose 82 (80-115) mg/dL Hemoglobin A1c (4.50-6.20) % Calcium 8.4 L (8.5-10.1) mg/dL Magnesium 1.6 L (1.8-2.4) mg/dl C-Reactive Protein 11.8 H* (<1.0) mg/dL 08/18/18 Range/Units 11:06 WBC (3.98-10.04) K/mm3 RBC (3.98-5.22) M/mm3 Hgb (11.2-15.7) gm/L Hct (34.1-44.9) % MCV (79.4-94.8) fl MCH (25.6-32.2) pg MCHC (32.2-35.5) g/dl RDW Std Deviation (36.4-46.3) fL Plt Count (182-369) K/mm3 MPV (9.4-12.3) fl Neut % (Auto) (34.0-71.1) % Lymph % (Auto) (19.3-51.7) % [place] % (Auto) (4.7-12.5) % Eos % (Auto) (0.7-5.8) Baso % (Auto) (0.1-1.2) % Neut # (Auto) (1.56-6.13) K/mm3 Lymph # (Auto) (1.18-3.74) K/mm3 [place] # (Auto) (0.24-0.36) K/mm3 Eos # (Auto) (0.04-0.36) K/mm3 Baso # (Auto) (0.01-0.08) K/mm3 Manual Slide Review Sodium (136-145) mEq/L Potassium (3.5-5.1) mEq/L Chloride (98-107) mEq/L Carbon Dioxide (21-32) mEq/L Anion Gap (5-15) BUN (7-18) mg/dL Creatinine (0.55-1.02) mg/dL Est Cr Clr Drug Dosing mL/min Estimated GFR (MDRD) (>60) mL/min BUN/Creatinine Ratio (14-18) Glucose (80-115) mg/dL POC Glucose 95 (80-115) mg/dL Hemoglobin A1c (4.50-6.20) % Calcium (8.5-10.1) mg/dL Magnesium (1.8-2.4) mg/dl C-Reactive Protein (<1.0) mg/dL Result Diagrams: 08/18/18 06:25 08/18/18 06:25 Jero Results Last 24 hrs: Microbiology 08/16/18 20:33 Urine Culture - Final Urine, Catheterized Pseudomonas Aeruginosa 08/16/18 23:55 Aerobic Blood Culture - Preliminary Blood - Venous NO GROWTH AFTER 1 DAY Anaerobic Blood Culture - Preliminary NO GROWTH AFTER 1 DAY 08/16/18 23:45 Aerobic Blood Culture - Preliminary Blood - Venous - Lab Draw NO GROWTH AFTER 1 DAY Anaerobic Blood Culture - Preliminary NO GROWTH AFTER 1 DAY Consult PN Assessment/Plan Procedures: Procedures AIRWAY INHALATION TREATMENT (02/22/18) APPLY LONG ARM SPLINT (05/31/14) ASSAY OF LACTIC ACID (07/28/18) ASSAY OF LIPASE (07/28/18) ASSAY OF MAGNESIUM (07/28/18) ASSAY OF NATRIURETIC PEPTIDE (02/22/18) BL SMEAR W/DIFF WBC COUNT (02/22/18) BLOOD CULTURE FOR BACTERIA (07/28/18) C DIFF AMPLIFIED PROBE (07/28/18) C-REACTIVE PROTEIN (02/22/18) CINE/VID X-RAY THROAT/ESOPH (02/22/18) COMPLETE CBC AUTOMATED (02/22/18) COMPLETE CBC W/AUTO DIFF WBC (07/28/18) COMPREHEN METABOLIC PANEL (07/28/18) CT ABD & PELV W/CONTRAST (07/28/18) CT HEAD/BRAIN W/O DYE (02/12/14) CULTURE AEROBIC IDENTIFY (02/22/18) CULTURE OTHR SPECIMN AEROBIC (02/22/18) ELECTROCARDIOGRAM TRACING (07/28/18) EMERGENCY DEPT VISIT (07/28/18) EMERGENCY DEPT VISIT (10/25/17) EMERGENCY DEPT VISIT (02/12/14) EVALUATE SWALLOWING FUNCTION (02/22/18) FLUOROSCOPY <1 HR PHYS/QHP (06/05/14) GAIT TRAINING THERAPY (09/04/15) GLUCOSE BLOOD TEST (02/22/18) HELICOBACTER PYLORI ANTIBODY (02/22/18) HYDRATE IV INFUSION ADD-ON (07/28/18) IMMUNIZATION ADMIN (02/12/14) INFLUENZA ASSAY W/OPTIC (02/22/18) LEUKOCYTE ASSESSMENT FECAL (02/22/18) MANUAL THERAPY 1/> REGIONS (02/22/18) MEASURE BLOOD OXYGEN LEVEL (02/22/18) MEASURE BLOOD OXYGEN LEVEL (02/22/18) METABOLIC PANEL TOTAL CA (07/28/18) MICROBE SUSCEPTIBLE DISK (02/22/18) MICROBE SUSCEPTIBLE JERO (07/28/18) MOTION FLUOROSCOPY/SWALLOW (02/22/18) MR-STAPH DNA AMP PROBE (07/28/18) MYCOPLASMA ANTIBODY (02/22/18) NEUROMUSCULAR REEDUCATION (02/22/18) ORAL FUNCTION THERAPY (02/22/18) OT EVAL MOD COMPLEX 45 MIN (02/22/18) OT EVALUATION (07/03/14) PROTHROMBIN TIME (02/12/14) PT EVAL MOD COMPLEX 30 MIN (02/22/18) PT EVALUATION (09/04/15) ROUTINE VENIPUNCTURE (07/28/18) RPR F/E/E/N/L/M 2.6-5.0 CM (12/04/15) RPR S/N/AX/GEN/TRNK2.6-7.5CM (02/12/14) TDAP VACCINE 7 YRS/> IM (02/12/14) THER/PROPH/DIAG INJ IV PUSH (04/08/18) THER/PROPH/DIAG INJ SC/IM (05/31/14) THER/PROPH/DIAG IV INF INIT (07/28/18) THERAPEUTIC ACTIVITIES (02/22/18) THERAPEUTIC EXERCISES (02/22/18) TREAT HUMERUS FRACTURE (06/05/14) TTE W/DOPPLER COMPLETE (02/22/18) TX/PRO/DX INJ NEW DRUG ADDON (02/22/18) ULTRASOUND THERAPY (09/12/14) URINALYSIS AUTO W/O SCOPE (02/22/18) URINALYSIS AUTO W/SCOPE (07/28/18) URINE BACTERIA CULTURE (07/28/18) URINE CULTURE/COLONY COUNT (07/28/18) X-RAY EXAM ABDOMEN 1 VIEW (07/28/18) X-RAY EXAM CHEST 1 VIEW (04/08/18) X-RAY EXAM CHEST 2 VIEWS (02/22/18) X-RAY EXAM OF ELBOW (05/31/14) X-RAY EXAM OF FOOT (02/22/18) X-RAY EXAM OF HUMERUS (06/06/15) X-RAY EXAM OF SHOULDER (08/01/15) X-RAYS BONE SURVEY COMPLETE (07/10/15) (1) Constipation SNOMED Code(s): 46788160 Code(s): K59.00 - CONSTIPATION, UNSPECIFIED Current Visit: No Qualifiers: Constipation type: other constipation type Qualified Code(s): K59.09 - Other constipation
[2018-08-18] MEDS ORDERED: Piperacillin/Tazobactam 4.5 GM in Sodium Chloride 0.9% 100 ML IV ONE (14:30)
--- NOTE | 2018-08-18 15:10 | PCM.CONSN ---
- General Info Date of Service: 08/18/18 Admission Dx/Problem (Free Text): constipation/colonic dilation Subjective Update: No acute events overnight. Denies pain. Has liquid and air coming out of rectal tube. - Patient Data Vitals - Most Recent: Last Vital Signs Temp 36.6 C 08/18/18 07:24 Pulse 71 08/18/18 07:24 Resp 18 08/18/18 07:24 BP 114/78 08/18/18 08:59 Pulse Ox 97 08/18/18 07:24 Weight - Most Recent: 63.049 kg I&O - Last 24 Hours: Intake & Output 08/18/18 08/18/18 08/18/18 06:59 14:59 22:59 Intake Total 1477 Output Total 800 Balance 677 Lab Results Last 24 Hours: Laboratory Results - last 24 hr 08/17/18 08/18/18 08/18/18 Range/Units 18:12 01:07 06:23 WBC (3.98-10.04) K/mm3 RBC (3.98-5.22) M/mm3 Hgb (11.2-15.7) gm/L Hct (34.1-44.9) % MCV (79.4-94.8) fl MCH (25.6-32.2) pg MCHC (32.2-35.5) g/dl RDW Std Deviation (36.4-46.3) fL Plt Count (182-369) K/mm3 MPV (9.4-12.3) fl Neut % (Auto) (34.0-71.1) % Lymph % (Auto) (19.3-51.7) % Carter % (Auto) (4.7-12.5) % Eos % (Auto) (0.7-5.8) Baso % (Auto) (0.1-1.2) % Neut # (Auto) (1.56-6.13) K/mm3 Lymph # (Auto) (1.18-3.74) K/mm3 Carter # (Auto) (0.24-0.36) K/mm3 Eos # (Auto) (0.04-0.36) K/mm3 Baso # (Auto) (0.01-0.08) K/mm3 Manual Slide Review Sodium (136-145) mEq/L Potassium (3.5-5.1) mEq/L Chloride (98-107) mEq/L Carbon Dioxide (21-32) mEq/L Anion Gap (5-15) BUN (7-18) mg/dL Creatinine (0.55-1.02) mg/dL Est Cr Clr Drug Dosing mL/min Estimated GFR (MDRD) (>60) mL/min BUN/Creatinine Ratio (14-18) Glucose (80-115) mg/dL POC Glucose 99 87 82 (80-115) mg/dL Calcium (8.5-10.1) mg/dL Magnesium (1.8-2.4) mg/dl C-Reactive Protein (<1.0) mg/dL 08/18/18 08/18/18 08/18/18 Range/Units 06:25 06:25 11:06 WBC 8.72 (3.98-10.04) K/mm3 RBC 4.30 (3.98-5.22) M/mm3 Hgb 9.8 L (11.2-15.7) gm/L Hct 31.8 L (34.1-44.9) % MCV 74.0 L (79.4-94.8) fl MCH 22.8 L (25.6-32.2) pg MCHC 30.8 L (32.2-35.5) g/dl RDW Std Deviation 48.8 H (36.4-46.3) fL Plt Count 230 (182-369) K/mm3 MPV 11.4 (9.4-12.3) fl Neut % (Auto) 79.1 H (34.0-71.1) % Lymph % (Auto) 14.9 L (19.3-51.7) % Carter % (Auto) 5.2 (4.7-12.5) % Eos % (Auto) 0.5 L (0.7-5.8) Baso % (Auto) 0.1 (0.1-1.2) % Neut # (Auto) 6.90 H (1.56-6.13) K/mm3 Lymph # (Auto) 1.30 (1.18-3.74) K/mm3 Carter # (Auto) 0.45 H (0.24-0.36) K/mm3 Eos # (Auto) 0.04 (0.04-0.36) K/mm3 Baso # (Auto) 0.01 (0.01-0.08) K/mm3 Manual Slide Review Abnormal smear Sodium 145 (136-145) mEq/L Potassium 2.6 L (3.5-5.1) mEq/L Chloride 110 H (98-107) mEq/L Carbon Dioxide 23 (21-32) mEq/L Anion Gap 14.6 (5-15) BUN 14 (7-18) mg/dL Creatinine 0.5 L (0.55-1.02) mg/dL Est Cr Clr Drug Dosing 106.17 mL/min Estimated GFR (MDRD) > 60 (>60) mL/min BUN/Creatinine Ratio 28.0 H (14-18) Glucose 87 (80-115) mg/dL POC Glucose 95 (80-115) mg/dL Calcium 8.4 L (8.5-10.1) mg/dL Magnesium 1.6 L (1.8-2.4) mg/dl C-Reactive Protein 11.8 H* (<1.0) mg/dL Jero Results Last 24 Hours: Microbiology 08/16/18 20:33 Urine Culture - Final Urine, Catheterized Pseudomonas Aeruginosa 08/16/18 23:55 Aerobic Blood Culture - Preliminary Blood - Venous NO GROWTH AFTER 1 DAY Anaerobic Blood Culture - Preliminary NO GROWTH AFTER 1 DAY 08/16/18 23:45 Aerobic Blood Culture - Preliminary Blood - Venous - Lab Draw NO GROWTH AFTER 1 DAY Anaerobic Blood Culture - Preliminary NO GROWTH AFTER 1 DAY Med Orders - Current: Current Medications Acetaminophen (Tylenol) 650 mg PO Q4H PRN PRN Reason: Pain (Mild 1-3)/fever Amlodipine Besylate (Norvasc) 5 mg PO BID [facility] Last Admin: 08/18/18 08:59 Dose: 5 mg Divalproex Sodium (Depakote Sprinkle) 125 mg PO BEDTIME [facility] Last Admin: 08/17/18 20:55 Dose: 125 mg Enoxaparin Sodium (Lovenox) 40 mg SUBCUT DAILY [facility] Last Admin: 08/18/18 09:00 Dose: 40 mg Hydrochlorothiazide (Hydrochlorothiazide) 12.5 mg PO BIDDIURETIC [facility] Last Admin: 08/18/18 06:03 Dose: 12.5 mg Potassium Chloride/Dextrose/Sod Cl (D5 Ns With 20 Meq Kcl) 1,000 mls @ 75 mls/ hr IV ASDIRECTED [facility] Last Admin: 08/18/18 09:00 Dose: 75 mls/hr Piperacillin Sod/Tazobactam (Sod 4.5 gm/ Sodium Chloride) 100 mls @ 25 mls/hr IV Q8H [facility] Ondansetron HCl (Zofran) 4 mg IVPUSH Q6HR PRN PRN Reason: Nausea/Vomiting Saccharomyces Boulardii (Florastor) 250 mg PO BID [facility] Last Admin: 08/18/18 08:59 Dose: 250 mg Sertraline HCl (Zoloft) 100 mg PO DAILY [facility] Last Admin: 08/18/18 08:59 Dose: 100 mg Simethicone (Simethicone) 80 mg PO Q6H PRN PRN Reason: Gas Sodium Chloride (Saline Flush) 10 ml FLUSH ASDIRECTED PRN PRN Reason: Keep Vein Open Last Admin: 08/16/18 17:08 Dose: 10 ml Discontinued Medications Sodium Chloride (Normal Saline) 500 mls @ 999 mls/hr IV .BOLUS ONE Stop: 08/16/18 17:27 Last Admin: 08/16/18 17:07 Dose: 999 mls/hr Ceftriaxone Sodium 2 gm/ (Sodium Chloride) 100 mls @ 200 mls/hr IV ONETIME ONE Stop: 08/16/18 21:38 Last Admin: 08/16/18 21:18 Dose: 200 mls/hr Metronidazole 500 mg/ Premix 100 mls @ 100 mls/hr IV ONETIME ONE Stop: 08/16/18 22:23 Last Admin: 08/16/18 21:54 Dose: 100 mls/hr Sodium Chloride (Normal Saline) 1,000 mls @ 100 mls/hr IV ASDIRECTED [facility] Last Admin: 08/18/18 06:07 Dose: 100 mls/hr Ceftriaxone Sodium 1 gm/ (Sodium Chloride) 100 mls @ 200 mls/hr IV Q24H [facility] Last Admin: 08/17/18 20:55 Dose: 200 mls/hr Metronidazole 500 mg/ Premix 100 mls @ 100 mls/hr IV Q8H [facility] Last Admin: 08/18/18 09:23 Dose: 100 mls/hr Potassium Chloride 10 meq/ (Premix) 100 mls @ 100 mls/hr IV Q1H [facility] Stop: 08/17/18 12:44 Last Admin: 08/17/18 14:31 Dose: 100 mls/hr Potassium Chloride 10 meq/ (Premix) 100 mls @ 100 mls/hr IV Q1H [facility] Stop: 08/18/18 14:29 Last Admin: 08/18/18 14:28 Dose: 100 mls/hr Magnesium Sulfate 2 gm/ Premix 50 mls @ 25 mls/hr IV ONETIME ONE Stop: 08/18/18 09:49 Last Admin: 08/18/18 10:25 Dose: 25 mls/hr Piperacillin Sod/Tazobactam (Sod 4.5 gm/ Sodium Chloride) 100 mls @ 200 mls/hr IV ONETIME ONE Stop: 08/18/18 14:59 Last Admin: 08/18/18 14:47 Dose: 200 mls/hr Lisinopril (Prinivil) 10 mg PO DAILY [facility] Last Admin: 08/17/18 09:19 Dose: 10 mg Non-Formulary Medication (Camphor/Menthol) 1 applic TOP ASDIRECTED PRN PRN Reason: Dryness Ondansetron HCl (Zofran) 4 mg IVPUSH ONETIME ONE Stop: 08/16/18 16:58 Last Admin: 08/16/18 17:06 Dose: 4 mg Ondansetron HCl (Zofran Odt) 4 mg PO Q6H PRN PRN Reason: Nausea Ondansetron HCl (Zofran) 4 mg IVPUSH Q6H PRN PRN Reason: Nausea/Vomiting Sertraline HCl (Zoloft) 150 mg PO DAILY [facility] Last Admin: 08/17/18 09:20 Dose: 150 mg - Exam General: No Acute Distress, Other (cognitive impairment.) GI/Abdominal Exam: Soft, Non-Tender, No Distention Consult PN Assessment/Plan Procedures: Procedures AIRWAY INHALATION TREATMENT (02/22/18) APPLY LONG ARM SPLINT (05/31/14) ASSAY OF LACTIC ACID (07/28/18) ASSAY OF LIPASE (07/28/18) ASSAY OF MAGNESIUM (07/28/18) ASSAY OF NATRIURETIC PEPTIDE (02/22/18) BL SMEAR W/DIFF WBC COUNT (02/22/18) BLOOD CULTURE FOR BACTERIA (07/28/18) C DIFF AMPLIFIED PROBE (07/28/18) C-REACTIVE PROTEIN (02/22/18) CINE/VID X-RAY THROAT/ESOPH (02/22/18) COMPLETE CBC AUTOMATED (02/22/18) COMPLETE CBC W/AUTO DIFF WBC (07/28/18) COMPREHEN METABOLIC PANEL (07/28/18) CT ABD & PELV W/CONTRAST (07/28/18) CT HEAD/BRAIN W/O DYE (02/12/14) CULTURE AEROBIC IDENTIFY (02/22/18) CULTURE OTHR SPECIMN AEROBIC (02/22/18) ELECTROCARDIOGRAM TRACING (07/28/18) EMERGENCY DEPT VISIT (07/28/18) EMERGENCY DEPT VISIT (10/25/17) EMERGENCY DEPT VISIT (02/12/14) EVALUATE SWALLOWING FUNCTION (02/22/18) FLUOROSCOPY <1 HR PHYS/QHP (06/05/14) GAIT TRAINING THERAPY (09/04/15) GLUCOSE BLOOD TEST (02/22/18) HELICOBACTER PYLORI ANTIBODY (02/22/18) HYDRATE IV INFUSION ADD-ON (07/28/18) IMMUNIZATION ADMIN (02/12/14) INFLUENZA ASSAY W/OPTIC (02/22/18) LEUKOCYTE ASSESSMENT FECAL (02/22/18) MANUAL THERAPY 1/> REGIONS (02/22/18) MEASURE BLOOD OXYGEN LEVEL (02/22/18) MEASURE BLOOD OXYGEN LEVEL (02/22/18) METABOLIC PANEL TOTAL CA (07/28/18) MICROBE SUSCEPTIBLE DISK (02/22/18) MICROBE SUSCEPTIBLE JERO (07/28/18) MOTION FLUOROSCOPY/SWALLOW (02/22/18) MR-STAPH DNA AMP PROBE (07/28/18) MYCOPLASMA ANTIBODY (02/22/18) NEUROMUSCULAR REEDUCATION (02/22/18) ORAL FUNCTION THERAPY (02/22/18) OT EVAL MOD COMPLEX 45 MIN (02/22/18) OT EVALUATION (07/03/14) PROTHROMBIN TIME (02/12/14) PT EVAL MOD COMPLEX 30 MIN (02/22/18) PT EVALUATION (09/04/15) ROUTINE VENIPUNCTURE (07/28/18) RPR F/E/E/N/L/M 2.6-5.0 CM (12/04/15) RPR S/N/AX/GEN/TRNK2.6-7.5CM (02/12/14) TDAP VACCINE 7 YRS/> IM (02/12/14) THER/PROPH/DIAG INJ IV PUSH (04/08/18) THER/PROPH/DIAG INJ SC/IM (05/31/14) THER/PROPH/DIAG IV INF INIT (07/28/18) THERAPEUTIC ACTIVITIES (02/22/18) THERAPEUTIC EXERCISES (02/22/18) TREAT HUMERUS FRACTURE (06/05/14) TTE W/DOPPLER COMPLETE (02/22/18) TX/PRO/DX INJ NEW DRUG ADDON (02/22/18) ULTRASOUND THERAPY (09/12/14) URINALYSIS AUTO W/O SCOPE (02/22/18) URINALYSIS AUTO W/SCOPE (07/28/18) URINE BACTERIA CULTURE (07/28/18) URINE CULTURE/COLONY COUNT (07/28/18) X-RAY EXAM ABDOMEN 1 VIEW (07/28/18) X-RAY EXAM CHEST 1 VIEW (04/08/18) X-RAY EXAM CHEST 2 VIEWS (02/22/18) X-RAY EXAM OF ELBOW (05/31/14) X-RAY EXAM OF FOOT (02/22/18) X-RAY EXAM OF HUMERUS (06/06/15) X-RAY EXAM OF SHOULDER (08/01/15) X-RAYS BONE SURVEY COMPLETE (07/10/15) (1) Constipation SNOMED Code(s): 88227194 Code(s): K59.00 - CONSTIPATION, UNSPECIFIED Current Visit: No Qualifiers: Constipation type: other constipation type Qualified Code(s): K59.09 - Other constipation Problem List Initiated/Reviewed/Updated: Yes My Orders Last 24 Hours: My Active Orders 08/18/18 Dinner Clear Liquid Diet [DIET] Plan: 67 yo female, h/o multiple medical problems, 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 Clinically improved. Abdominal X-ray images and report reviewed. Improvement in colonic dilation. - Resolution of leukocytosis (pt also with UTI). Agree with coverage of gram negative and anaerobes, given potential for colonic bacterial translocation. On ceftriaxone/Flagyl. - Continue rectal tube. - May start clears diet. - Will require bowel regimen upon discharge. Will continue to follow. Victorino Lainez M.D., F.A.C.S. General Surgery
[2018-08-18] MEDS: Piperacillin/Tazobactam 4.5 GM in Sodium Chloride 0.9% 100 ML IV SCH (22:12)
[2018-08-18] MEDS: Divalproex Sodium Delayed-Release 125 MG Cap.Sprink PO SCH (22:13)
[2018-08-19] MEDS: Piperacillin/Tazobactam 4.5 GM in Sodium Chloride 0.9% 100 ML IV SCH ×3 (05:41→21:58)
--- NOTE | 2018-08-19 06:27 | PCM.PN ---
<Giorgio Arriaga - Last Filed: 08/19/18 12:22> - General Info Date of Service: 08/19/18 Admission Dx/Problem (Free Text): constipation/colonic dilation Subjective Update: In to see Veronica. She is lying in bed. Dr. Lim saw her today and reports she is doing much better. Her stomach is nice and soft and she has stool coming out of the rectal tube. He recommends continuing to advance diet and removing the rectal tube. Her potassium and magnesium improved today, but not much. Discussed recommendations with pharmacy and we will increase potassium in IV fluids to 40mg. We will also give 6 potassium riders again. Magnesium was supplemented again. Her reports she had a very good meal last night but did not eat much for breakfast today. Full liquid diet for lunch. Hopeful for discharge tomorrow pending improved potassium. Will continue UTI treatment. Functional Status: Reports: Pain Controlled, Tolerating Diet, Urinating. Denies : Ambulating, New Symptoms - Review of Systems General: Reports: Weakness (chronic ), Other (Very slow to respond to questions wich is her usual ). Denies: Fever, Fatigue, Malaise HEENT: Denies: Headaches, Sore Throat Pulmonary: Denies: Shortness of Breath, Pleuritic Chest Pain, Cough, Sputum, Wheezing Cardiovascular: Denies: Chest Pain, Palpitations, Dyspnea on Exertion, Edema, Lightheadedness Gastrointestinal: Reports: Other (rectal tube in place ). Denies: Abdominal Pain, Constipation, Diarrhea, Nausea, Vomiting Genitourinary: Denies: Pain Musculoskeletal: Reports: No Symptoms Skin: Reports: No Symptoms Neurological: Reports: Pre-Existing Deficit, Trouble Speaking, Difficulty Walking, Weakness, Gait Disturbance Psychiatric: Reports: No Symptoms - Patient Data Vitals - Most Recent: Last Vital Signs Temp 98.2 F 08/19/18 05:42 Pulse 82 08/19/18 05:42 Resp 18 08/19/18 05:42 BP 147/74 H 08/19/18 05:42 Pulse Ox 97 08/19/18 06:20 Weight - Most Recent: 138 lb 5 oz I&O - Last 24 Hours: Intake & Output 08/18/18 08/18/18 08/19/18 14:59 22:59 06:59 Intake Total 1691 1318 Output Total 150 Balance 1541 1318 Lab Results Last 24 Hours: Laboratory Results - last 24 hr 08/18/18 08/18/18 08/18/18 Range/Units 06:23 06:25 06:25 WBC 8.72 (3.98-10.04) K/mm3 RBC 4.30 (3.98-5.22) M/mm3 Hgb 9.8 L (11.2-15.7) gm/L Hct 31.8 L (34.1-44.9) % MCV 74.0 L (79.4-94.8) fl MCH 22.8 L (25.6-32.2) pg MCHC 30.8 L (32.2-35.5) g/dl RDW Std Deviation 48.8 H (36.4-46.3) fL Plt Count 230 (182-369) K/mm3 MPV 11.4 (9.4-12.3) fl Neut % (Auto) 79.1 H (34.0-71.1) % Lymph % (Auto) 14.9 L (19.3-51.7) % [place] % (Auto) 5.2 (4.7-12.5) % Eos % (Auto) 0.5 L (0.7-5.8) Baso % (Auto) 0.1 (0.1-1.2) % Neut # (Auto) 6.90 H (1.56-6.13) K/mm3 Lymph # (Auto) 1.30 (1.18-3.74) K/mm3 [place] # (Auto) 0.45 H (0.24-0.36) K/mm3 Eos # (Auto) 0.04 (0.04-0.36) K/mm3 Baso # (Auto) 0.01 (0.01-0.08) K/mm3 Manual Slide Review Abnormal smear Sodium 145 (136-145) mEq/L Potassium 2.6 L (3.5-5.1) mEq/L Chloride 110 H (98-107) mEq/L Carbon Dioxide 23 (21-32) mEq/L Anion Gap 14.6 (5-15) BUN 14 (7-18) mg/dL Creatinine 0.5 L (0.55-1.02) mg/dL Est Cr Clr Drug Dosing 106.17 mL/min Estimated GFR (MDRD) > 60 (>60) mL/min BUN/Creatinine Ratio 28.0 H (14-18) Glucose 87 (80-115) mg/dL POC Glucose 82 (80-115) mg/dL Calcium 8.4 L (8.5-10.1) mg/dL Magnesium 1.6 L (1.8-2.4) mg/dl C-Reactive Protein 11.8 H* (<1.0) mg/dL 08/18/18 08/18/18 Range/Units 11:06 17:18 WBC (3.98-10.04) K/mm3 RBC (3.98-5.22) M/mm3 Hgb (11.2-15.7) gm/L Hct (34.1-44.9) % MCV (79.4-94.8) fl MCH (25.6-32.2) pg MCHC (32.2-35.5) g/dl RDW Std Deviation (36.4-46.3) fL Plt Count (182-369) K/mm3 MPV (9.4-12.3) fl Neut % (Auto) (34.0-71.1) % Lymph % (Auto) (19.3-51.7) % [place] % (Auto) (4.7-12.5) % Eos % (Auto) (0.7-5.8) Baso % (Auto) (0.1-1.2) % Neut # (Auto) (1.56-6.13) K/mm3 Lymph # (Auto) (1.18-3.74) K/mm3 [place] # (Auto) (0.24-0.36) K/mm3 Eos # (Auto) (0.04-0.36) K/mm3 Baso # (Auto) (0.01-0.08) K/mm3 Manual Slide Review Sodium (136-145) mEq/L Potassium (3.5-5.1) mEq/L Chloride (98-107) mEq/L Carbon Dioxide (21-32) mEq/L Anion Gap (5-15) BUN (7-18) mg/dL Creatinine (0.55-1.02) mg/dL Est Cr Clr Drug Dosing mL/min Estimated GFR (MDRD) (>60) mL/min BUN/Creatinine Ratio (14-18) Glucose (80-115) mg/dL POC Glucose 95 90 (80-115) mg/dL Calcium (8.5-10.1) mg/dL Magnesium (1.8-2.4) mg/dl C-Reactive Protein (<1.0) mg/dL Jero Results Last 24 Hours: Microbiology 08/16/18 23:55 Aerobic Blood Culture - Preliminary Blood - Venous NO GROWTH AFTER 2 DAYS Anaerobic Blood Culture - Preliminary NO GROWTH AFTER 2 DAYS 08/16/18 23:45 Aerobic Blood Culture - Preliminary Blood - Venous - Lab Draw NO GROWTH AFTER 2 DAYS Anaerobic Blood Culture - Preliminary NO GROWTH AFTER 2 DAYS 08/16/18 20:33 Urine Culture - Final Urine, Catheterized Pseudomonas Aeruginosa Med Orders - Current: Current Medications Acetaminophen (Tylenol) 650 mg PO Q4H PRN PRN Reason: Pain (Mild 1-3)/fever Amlodipine Besylate (Norvasc) 5 mg PO BID [facility] Last Admin: 08/18/18 22:14 Dose: 5 mg Divalproex Sodium (Depakote Sprinkle) 125 mg PO BEDTIME [facility] Last Admin: 08/18/18 22:13 Dose: 125 mg Enoxaparin Sodium (Lovenox) 40 mg SUBCUT DAILY [facility] Last Admin: 08/18/18 09:00 Dose: 40 mg Hydrochlorothiazide (Hydrochlorothiazide) 12.5 mg PO BIDDIURETIC [facility] Last Admin: 08/18/18 06:03 Dose: 12.5 mg Potassium Chloride/Dextrose/Sod Cl (D5 Ns With 20 Meq Kcl) 1,000 mls @ 75 mls/ hr IV ASDIRECTED [facility] Last Admin: 08/18/18 22:11 Dose: 75 mls/hr Piperacillin Sod/Tazobactam (Sod 4.5 gm/ Sodium Chloride) 100 mls @ 25 mls/hr IV Q8H [facility] Last Admin: 08/19/18 05:41 Dose: 25 mls/hr Ondansetron HCl (Zofran) 4 mg IVPUSH Q6HR PRN PRN Reason: Nausea/Vomiting Saccharomyces Boulardii (Florastor) 250 mg PO BID [facility] Last Admin: 08/18/18 22:13 Dose: 250 mg Sertraline HCl (Zoloft) 100 mg PO DAILY [facility] Last Admin: 08/18/18 08:59 Dose: 100 mg Simethicone (Simethicone) 80 mg PO Q6H PRN PRN Reason: Gas Sodium Chloride (Saline Flush) 10 ml FLUSH ASDIRECTED PRN PRN Reason: Keep Vein Open Last Admin: 08/16/18 17:08 Dose: 10 ml Discontinued Medications Sodium Chloride (Normal Saline) 500 mls @ 999 mls/hr IV .BOLUS ONE Stop: 08/16/18 17:27 Last Admin: 08/16/18 17:07 Dose: 999 mls/hr Ceftriaxone Sodium 2 gm/ (Sodium Chloride) 100 mls @ 200 mls/hr IV ONETIME ONE Stop: 08/16/18 21:38 Last Admin: 08/16/18 21:18 Dose: 200 mls/hr Metronidazole 500 mg/ Premix 100 mls @ 100 mls/hr IV ONETIME ONE Stop: 08/16/18 22:23 Last Admin: 08/16/18 21:54 Dose: 100 mls/hr Sodium Chloride (Normal Saline) 1,000 mls @ 100 mls/hr IV ASDIRECTED [facility] Last Admin: 08/18/18 06:07 Dose: 100 mls/hr Ceftriaxone Sodium 1 gm/ (Sodium Chloride) 100 mls @ 200 mls/hr IV Q24H [facility] Last Admin: 08/17/18 20:55 Dose: 200 mls/hr Metronidazole 500 mg/ Premix 100 mls @ 100 mls/hr IV Q8H [facility] Last Admin: 08/18/18 09:23 Dose: 100 mls/hr Potassium Chloride 10 meq/ (Premix) 100 mls @ 100 mls/hr IV Q1H [facility] Stop: 08/17/18 12:44 Last Admin: 08/17/18 14:31 Dose: 100 mls/hr Potassium Chloride 10 meq/ (Premix) 100 mls @ 100 mls/hr IV Q1H [facility] Stop: 08/18/18 14:29 Last Admin: 08/18/18 14:28 Dose: 100 mls/hr Magnesium Sulfate 2 gm/ Premix 50 mls @ 25 mls/hr IV ONETIME ONE Stop: 08/18/18 09:49 Last Admin: 08/18/18 10:25 Dose: 25 mls/hr Piperacillin Sod/Tazobactam (Sod 4.5 gm/ Sodium Chloride) 100 mls @ 200 mls/hr IV ONETIME ONE Stop: 08/18/18 14:59 Last Admin: 08/18/18 14:47 Dose: 200 mls/hr Lisinopril (Prinivil) 10 mg PO DAILY [facility] Last Admin: 08/17/18 09:19 Dose: 10 mg Non-Formulary Medication (Camphor/Menthol) 1 applic TOP ASDIRECTED PRN PRN Reason: Dryness Ondansetron HCl (Zofran) 4 mg IVPUSH ONETIME ONE Stop: 08/16/18 16:58 Last Admin: 08/16/18 17:06 Dose: 4 mg Ondansetron HCl (Zofran Odt) 4 mg PO Q6H PRN PRN Reason: Nausea Ondansetron HCl (Zofran) 4 mg IVPUSH Q6H PRN PRN Reason: Nausea/Vomiting Sertraline HCl (Zoloft) 150 mg PO DAILY [facility] Last Admin: 08/17/18 09:20 Dose: 150 mg - Exam Quality Assessment: DVT Prophylaxis General: Alert, Oriented, Cooperative, Other (Very slow to respond to questions wich is her usual ) HEENT: Pupils Equal, Pupils Reactive, EOMI Neck: Supple Lungs: Clear to Auscultation, Normal Respiratory Effort Cardiovascular: Regular Rate, Regular Rhythm GI/Abdominal Exam: Normal Bowel Sounds, Soft, Non-Tender, No Distention, No Abnormal Bruit (Female) Exam: Deferred Back Exam: Normal Inspection, Full Range of Motion Extremities: Normal Inspection, Non-Tender, No Pedal Edema, Normal Capillary Refill, Limited Range of Motion Peripheral Pulses: 2+: Radial (L), Radial (R), Dorsalis Pedis (L), Dorsalis Pedis (R) Skin: Warm, Dry, Intact Neurological: No New Focal Deficit Psy/Mental Status: Alert - Problem List & Annotations (1) UTI (urinary tract infection) SNOMED Code(s): 88482823 Code(s): N39.0 - URINARY TRACT INFECTION, SITE NOT SPECIFIED Status: Acute Priority: High Current Visit: Yes Qualifiers: Urinary tract infection type: site unspecified Hematuria presence: without hematuria Qualified Code(s): N39.0 - Urinary tract infection, site not specified (2) Ileus SNOMED Code(s): 476034726 Code(s): K56.7 - ILEUS, UNSPECIFIED Status: Chronic Priority: High Current Visit: Yes Annotation/Comment:: - Acute on Chronic (3) Hypokalemia SNOMED Code(s): 12304915 Code(s): E87.6 - HYPOKALEMIA Status: Acute Priority: High Current Visit : Yes (4) Hypomagnesemia SNOMED Code(s): 447974697 Code(s): E83.42 - HYPOMAGNESEMIA Status: Acute Priority: High Current Visit: Yes - Problem List Review Problem List Initiated/Reviewed/Updated: Yes - My Orders Last 24 Hours: My Active Orders 08/18/18 08:15 Dextrose 5%-0.9% NaCl with KCl [D5 NS with 20 mEq KCl] 1,000 ml IV ASDIRECTED 08/18/18 09:00 Sertraline [Zoloft] 100 mg PO DAILY 08/18/18 22:30 Piperacillin/Tazobactam [Piperacil-Tazobact] 4.5 gm Sodium Chloride 0.9% [ Normal Saline] 100 ml IV Q8H 08/19/18 06:14 BASIC METABOLIC PANEL,BMP [CHEM] AM CBC WITH AUTO DIFF [HEME] AM CRP [C-REACTIVE PROTEIN] [CHEM] AM MAGNESIUM [CHEM] AM 08/20/18 05:11 BASIC METABOLIC PANEL,BMP [CHEM] AM CBC WITH AUTO DIFF [HEME] AM CRP [C-REACTIVE PROTEIN] [CHEM] AM MAGNESIUM [CHEM] AM 08/21/18 05:11 BASIC METABOLIC PANEL,BMP [CHEM] AM CBC WITH AUTO DIFF [HEME] AM CRP [C-REACTIVE PROTEIN] [CHEM] AM MAGNESIUM [CHEM] AM - Plan Plan:: I/P: Acute: Ileus vs. distention 2/2 constipation -Reported abdominal pain, distention, decreased oral intake, and vomiting -Multiple prior episodes of ileus -CT scan in ED: * Increased stool within the right colon and within the rectum. * Diffuse gaseous dilatation of colon compatible with ileus or possibly obstipation. Maximum dilatation of the colon is within the transverse region measuring 6.6 cm. * Other incidental findings as described above. -Abdominal X-ray in ED: * Gaseous dilatation of colon with mild amount of stool within the rectum. Findings most likely due to colonic ileus. * Other incidental findings. -Rectal tube placed in ED with relief -Dr. Carina, general surgeon consulted -Rectal exam performed at bedside with no stool or mass noted, fleets enema administered -Recommends repeat abdominal x-ray - improved distension, pending formal read -Recommends continued rectal tube -Recommends repeat enemas as needed -Recommends aggressive bowel regimen at discharge -Recommends continued Abx treatment due to leukocytosis as below -Repeat Abdominal x-ray shows improved gaseous distention -Advance diet as tolerated UTI -UA: Positive nitrite; 1+ leukocyte esterase; 40-50 WBC; Moderate bacteria -Urine culture - pseudomonas Aeruginosa -Risk factors: urinary incontinence, immobile -History of multiple prior UTIs with E. Coli - good sensitivity to Rocephin -IV fluids as ordered -2gm rocephin given in ED - continue 1gm -> switch to zosyn per c/s after discussion with pharmacy Hypokalemia, slowly improving -Potassium 3.4-->2.6-->2.8 -Supplemented -Discussed supplementation with pharmacy. They suggest 6 potassium riders and 40meq KCL + NS infusion -Continue to monitor Hypomagnesemia, slowly improving -Magnesium 1.6-->1.7 -Supplemented -Continue to monitor Resolved: S/P Leukocytosis -WBC 23.57-->16.98-->8.72 -CRP 12.8-->11.8 -Rocephin as above -Flagyl Q8Hr due to concern over possible colonic bacterial translocation -Likely 2/2 UTI -Continue to monitor Chronic: impaired vision HLD hypertension hyperlipidemia Hx/o hypomagnesemia Hx/o hypokalemia diverticulosis GERD hemorrhoids Hx/o bowel resection Hx/o ileus Hx/o C. 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 Lynn <Camden Perkins - Last Filed: 08/19/18 15:27> - Patient Data Vitals - Most Recent: Last Vital Signs Temp 98.8 F 08/19/18 07:16 Pulse 77 08/19/18 07:16 Resp 26 H 08/19/18 07:16 BP 141/75 H 08/19/18 08:27 Pulse Ox 95 08/19/18 07:16 I&O - Last 24 Hours: Intake & Output 08/19/18 08/19/18 08/19/18 03:59 11:59 19:59 Intake Total 1438 Balance 1438 Lab Results Last 24 Hours: Laboratory Results - last 24 hr 08/18/18 08/19/18 08/19/18 Range/Units 17:18 06:14 06:14 WBC 8.76 (3.98-10.04) K/mm3 RBC 4.46 (3.98-5.22) M/mm3 Hgb 10.2 L (11.2-15.7) gm/L Hct 32.3 L (34.1-44.9) % MCV 72.4 L (79.4-94.8) fl MCH 22.9 L (25.6-32.2) pg MCHC 31.6 L (32.2-35.5) g/dl RDW Std Deviation 46.5 H (36.4-46.3) fL Plt Count 221 (182-369) K/mm3 MPV 11.0 (9.4-12.3) fl Neut % (Auto) 84.1 H (34.0-71.1) % Lymph % (Auto) 10.6 L (19.3-51.7) % [place] % (Auto) 4.9 (4.7-12.5) % Eos % (Auto) 0.2 L (0.7-5.8) Baso % (Auto) 0.1 (0.1-1.2) % Neut # (Auto) 7.36 H (1.56-6.13) K/mm3 Lymph # (Auto) 0.93 L (1.18-3.74) K/mm3 [place] # (Auto) 0.43 H (0.24-0.36) K/mm3 Eos # (Auto) 0.02 L (0.04-0.36) K/mm3 Baso # (Auto) 0.01 (0.01-0.08) K/mm3 Manual Slide Review Abnormal smear Sodium 140 (136-145) mEq/L Potassium 2.8 L (3.5-5.1) mEq/L Chloride 107 (98-107) mEq/L Carbon Dioxide 21 (21-32) mEq/L Anion Gap 14.8 (5-15) BUN 5 L (7-18) mg/dL Creatinine 0.5 L (0.55-1.02) mg/dL Est Cr Clr Drug Dosing 105.89 mL/min Estimated GFR (MDRD) > 60 (>60) mL/min BUN/Creatinine Ratio 10.0 L (14-18) Glucose 126 H (80-115) mg/dL POC Glucose 90 (80-115) mg/dL Calcium 8.3 L (8.5-10.1) mg/dL Magnesium 1.7 L (1.8-2.4) mg/dl C-Reactive Protein 7.0 H* (<1.0) mg/dL Jero Results Last 24 Hours: Microbiology 08/16/18 20:33 Urine Culture - Final Urine, Catheterized Pseudomonas Aeruginosa 08/16/18 23:55 Aerobic Blood Culture - Preliminary Blood - Venous NO GROWTH AFTER 2 DAYS Anaerobic Blood Culture - Preliminary NO GROWTH AFTER 2 DAYS 08/16/18 23:45 Aerobic Blood Culture - Preliminary Blood - Venous - Lab Draw NO GROWTH AFTER 2 DAYS Anaerobic Blood Culture - Preliminary NO GROWTH AFTER 2 DAYS Med Orders - Current: Current Medications Acetaminophen (Tylenol) 650 mg PO Q4H PRN PRN Reason: Pain (Mild 1-3)/fever Amlodipine Besylate (Norvasc) 5 mg PO BID [facility] Last Admin: 08/19/18 08:27 Dose: 5 mg Divalproex Sodium (Depakote Sprinkle) 125 mg PO BEDTIME [facility] Last Admin: 08/18/18 22:13 Dose: 125 mg Enoxaparin Sodium (Lovenox) 40 mg SUBCUT DAILY [facility] Last Admin: 08/19/18 08:41 Dose: 40 mg Hydrochlorothiazide (Hydrochlorothiazide) 12.5 mg PO BIDDIURETIC [facility] Last Admin: 08/18/18 06:03 Dose: 12.5 mg Piperacillin Sod/Tazobactam (Sod 4.5 gm/ Sodium Chloride) 100 mls @ 25 mls/hr IV Q8H [facility] Last Admin: 08/19/18 14:52 Dose: 25 mls/hr Potassium Chloride/Sodium Chloride (Normal Saline With 40 Meq Kcl) 1,000 mls @ 75 mls/hr IV ASDIRECTED [facility] Stop: 08/19/18 18:00 Last Admin: 08/19/18 08:06 Dose: 75 mls/hr Ondansetron HCl (Zofran) 4 mg IVPUSH Q6HR PRN PRN Reason: Nausea/Vomiting Pantoprazole Sodium (Protonix) 40 mg PO DAILY [facility] Saccharomyces Boulardii (Florastor) 250 mg PO BID [facility] Last Admin: 08/19/18 08:27 Dose: 250 mg Sertraline HCl (Zoloft) 100 mg PO DAILY [facility] Last Admin: 08/19/18 08:27 Dose: 100 mg Simethicone (Simethicone) 80 mg PO Q6H PRN PRN Reason: Gas Sodium Chloride (Saline Flush) 10 ml FLUSH ASDIRECTED PRN PRN Reason: Keep Vein Open Last Admin: 08/16/18 17:08 Dose: 10 ml Discontinued Medications Sodium Chloride (Normal Saline) 500 mls @ 999 mls/hr IV .BOLUS ONE Stop: 08/16/18 17:27 Last Admin: 08/16/18 17:07 Dose: 999 mls/hr Ceftriaxone Sodium 2 gm/ (Sodium Chloride) 100 mls @ 200 mls/hr IV ONETIME ONE Stop: 08/16/18 21:38 Last Admin: 08/16/18 21:18 Dose: 200 mls/hr Metronidazole 500 mg/ Premix 100 mls @ 100 mls/hr IV ONETIME ONE Stop: 08/16/18 22:23 Last Admin: 08/16/18 21:54 Dose: 100 mls/hr Sodium Chloride (Normal Saline) 1,000 mls @ 100 mls/hr IV ASDIRECTED [facility] Last Admin: 08/18/18 06:07 Dose: 100 mls/hr Ceftriaxone Sodium 1 gm/ (Sodium Chloride) 100 mls @ 200 mls/hr IV Q24H [facility] Last Admin: 08/17/18 20:55 Dose: 200 mls/hr Metronidazole 500 mg/ Premix 100 mls @ 100 mls/hr IV Q8H [facility] Last Admin: 08/18/18 09:23 Dose: 100 mls/hr Potassium Chloride 10 meq/ (Premix) 100 mls @ 100 mls/hr IV Q1H [facility] Stop: 08/17/18 12:44 Last Admin: 08/17/18 14:31 Dose: 100 mls/hr Potassium Chloride 10 meq/ (Premix) 100 mls @ 100 mls/hr IV Q1H [facility] Stop: 08/18/18 14:29 Last Admin: 08/18/18 14:28 Dose: 100 mls/hr Magnesium Sulfate 2 gm/ Premix 50 mls @ 25 mls/hr IV ONETIME ONE Stop: 08/18/18 09:49 Last Admin: 08/18/18 10:25 Dose: 25 mls/hr Potassium Chloride/Dextrose/Sod Cl (D5 Ns With 20 Meq Kcl) 1,000 mls @ 75 mls/ hr IV ASDIRECTED [facility] Last Admin: 08/18/18 22:11 Dose: 75 mls/hr Piperacillin Sod/Tazobactam (Sod 4.5 gm/ Sodium Chloride) 100 mls @ 200 mls/hr IV ONETIME ONE Stop: 08/18/18 14:59 Last Admin: 08/18/18 14:47 Dose: 200 mls/hr Potassium Chloride 10 meq/ (Premix) 100 mls @ 100 mls/hr IV Q1H [facility] Stop: 08/19/18 13:59 Last Admin: 08/19/18 13:56 Dose: 100 mls/hr Magnesium Sulfate 2 gm/ Premix 50 mls @ 25 mls/hr IV ONETIME ONE Stop: 08/19/18 09:59 Last Admin: 08/19/18 08:12 Dose: 25 mls/hr Magnesium Sulfate (Magnesium Sulfate In Water Premix) Confirm Administered Dose 50 mls @ as directed .ROUTE .STK-MED ONE Stop: 08/19/18 07:52 Last Admin: 08/19/18 08:01 Dose: Not Given Lisinopril (Prinivil) 10 mg PO DAILY [facility] Last Admin: 08/17/18 09:19 Dose: 10 mg Non-Formulary Medication (Camphor/Menthol) 1 applic TOP ASDIRECTED PRN PRN Reason: Dryness Ondansetron HCl (Zofran) 4 mg IVPUSH ONETIME ONE Stop: 08/16/18 16:58 Last Admin: 08/16/18 17:06 Dose: 4 mg Ondansetron HCl (Zofran Odt) 4 mg PO Q6H PRN PRN Reason: Nausea Ondansetron HCl (Zofran) 4 mg IVPUSH Q6H PRN PRN Reason: Nausea/Vomiting Sertraline HCl (Zoloft) 150 mg PO DAILY [facility] Last Admin: 08/17/18 09:20 Dose: 150 mg
[2018-08-19] MEDS ORDERED: Magnesium Sulfate/Water 0 ML ONE (07:51)
[2018-08-19] MEDS ORDERED: Magnesium Sulfate/Water 2 GM in Premix Bag 1 BAG IV ONE (08:00)
[2018-08-19] MEDS ORDERED: Sodium Chloride 0.9% with KCl 1,000 ML IV SCH (08:00)
[2018-08-19] MEDS: Potassium Chloride 10 MEQ in Premix Bag 1 BAG IV SCH ×6 (08:07→13:56)
[2018-08-19] MEDS: Sertraline 50 MG Tab PO SCH (08:27)
[2018-08-19] MEDS: amLODIPine 5 MG Tab PO SCH ×2 (08:27→20:09)
[2018-08-19] MEDS: Saccharomyces Boulardii (Probiotic) 250 MG Cap PO SCH ×2 (08:27→20:10)
[2018-08-19] MEDS: Enoxaparin 40 MG/0.4 ML Syringe SUBCUT SCH (08:41)
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
[2018-08-19] MEDS: Divalproex Sodium Delayed-Release 125 MG Cap.Sprink PO SCH (20:10)
[2018-08-20] MEDS: Piperacillin/Tazobactam 4.5 GM in Sodium Chloride 0.9% 100 ML IV SCH (06:38)
--- NOTE | 2018-08-20 06:53 | PCM.DCSUM1 ---
Discharge Summary - Hospital Course HPI Initial Comments: Savannah Perry s a 67-year-old female, well-known to this service, who presents to our ED on 08/16/18 via [facility] with a gastrointestinal problem. She reports abdominal pain, abdominal distention, and vomiting. She does have a history of several prior similar episodes and has dementia. 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 She has been in the [facility] for close to 2 years. Yesterday evening she was noted to not be eating as much as she usually does. She started having abdominal pain the next day around noon with some vomiting and worsening abdominal distention. Patient is nonverbal and history is obtained from EMS in [facility] record. In the ED temperature 99.7. Pulse 100. Respirations 18. Blood pressure 120/ 61. Pulse ox 95%. She is noted to have had a prior large loose bowel movement earlier in the day. She is also noted to not obey commands in the ED. Labs are obtained showing a WBC of 23.57. Hemoglobin 12.6. Hematocrit 40. She is microcytic. Platelets are good at 330,000. Neutrophils are elevated at 93.2%. Sodium is 136. Potassium is slightly low at 3.4. Chloride is 99. Anion gap is high at 16.4. BUN is high at 22. Creatinine 0.7. EGFR greater than 60. Glucose is 195. Lactic acid is 1.6. Calcium is 9.8. AST 13, ALT 17, alkaline phosphatase 91. Protein is 8.3. Albumin 3.6. Lipase 166. UA is obtained and is slightly cloudy with trace lysed occult blood, positive nitrite, 1+ leuk esterase, 40-50 WBCs, moderate bacteria, and moderate urine mucus. Abdominal x- rays obtained and interpreted by Dr. López as "1. Gaseous dilation of colon with mild amount of stool within the rectum. Findings most likely due to colonic ileus. 2. Other incidental findings." CT scan is obtained and patient does not have any oral contrast as she has been vomiting and would likely be unable to keep it down. CT scan is interpreted by Dr. López as "1. Increased stool within the right colon and within the rectum. 2. Diffuse gaseous dilation of colon compatible with ileus or possibly obstipation. Maximum dilation of the colon is within the transverse region measuring 6.6 cm. 3. Otherwise no findings as noted above." She is given a 500 fluid bolus and started on 2 g Rocephin and 500 mg metronidazole. She is also given 4 mg IV push Zofran. Urine and blood cultures are ordered. Rectal tube is placed and patient reports she feels better after that. She carries a history of: impaired vision, HLD, hypertension, hyperlipidemia, hypomagnesemia, hypokalemia, diverticulosis, GERD, hemorrhoids, bowel resection , nausea, ileus, C. 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 She subsequently admitted to the medical floor for UTI and ileus. She is a DNR/ DNI. Her PCP is Dr. Traci Lynn. Diagnosis: Stroke: No - Discharge Data Discharge Date: 08/20/18 (Admit date: 08/17/18) Discharge Disposition: DC/Tfer to SNF 03 Condition: Fair - Discharge Diagnosis/Problem(s) (1) UTI (urinary tract infection) SNOMED Code(s): 31984070 ICD Code: N39.0 - URINARY TRACT INFECTION, SITE NOT SPECIFIED Status: Acute Priority: High Current Visit: Yes Qualifiers: Urinary tract infection type: acute cystitis Hematuria presence: without hematuria Qualified Code(s): N30.00 - Acute cystitis without hematuria (2) Ileus SNOMED Code(s): 889749255 ICD Code: K56.7 - ILEUS, UNSPECIFIED Status: Chronic Priority: High Current Visit: Yes Problem Details: - Acute on Chronic (3) Hypokalemia SNOMED Code(s): 05626495 ICD Code: E87.6 - HYPOKALEMIA Status: Acute Priority: High Current Visit: Yes (4) Hypomagnesemia SNOMED Code(s): 950336076 ICD Code: E83.42 - HYPOMAGNESEMIA Status: Acute Priority: High Current Visit: Yes - Patient Summary/Data Consults: Consultations 08/16/18 21:24 Consult to Physician [CONS] Routine 08/17/18 07:19 Consult to Case Management/Services Executive [CONS] Routine Consult to Spiritual Care [CONS] Routine 08/17/18 13:25 Consult to Occupational Therapy [OT Evaluation and Treatment] [CONS] Routine Labs Pending at D/C: None Recommended Follow-up Testing/Procedures: Follow-up with PCP within 7-10 days of discharge. Hospital Course: I/P: Acute: Ileus -Reported abdominal pain, distention, decreased oral intake, and vomiting -Multiple prior episodes of ileus -CT scan in ED: * Increased stool within the right colon and within the rectum. * Diffuse gaseous dilatation of colon compatible with ileus or possibly obstipation. Maximum dilatation of the colon is within the transverse region measuring 6.6 cm. * Other incidental findings as described above. -Abdominal X-ray in ED: * Gaseous dilatation of colon with mild amount of stool within the rectum. Findings most likely due to colonic ileus. * Other incidental findings. -Rectal tube placed in ED with relief -Dr. Lim, general surgeon consulted -Rectal exam performed at bedside with no stool or mass noted, fleets enema administered -Recommends repeat abdominal x-ray - improved distension, pending formal read -Recommends continued rectal tube -Recommends repeat enemas as needed -Recommends aggressive bowel regimen at discharge -Recommends continued Abx treatment due to leukocytosis as below -Repeat Abdominal x-ray shows improved gaseous distention -Advance diet as tolerated UTI -UA: Positive nitrite; 1+ leukocyte esterase; 40-50 WBC; Moderate bacteria -Urine culture - pseudomonas Aeruginosa -Risk factors: urinary incontinence, immobile -History of multiple prior UTIs with E. Coli - good sensitivity to Rocephin -IV fluids as ordered -2gm rocephin given in ED - continue 1gm -> switch to zosyn per c/s after discussion with pharmacy Hypokalemia,improving -Potassium 3.4-->2.6-->2.8-->3.2 -Supplemented -Discussed supplementation with pharmacy. They suggest 6 potassium riders and 40meq KCL + NS infusion -Continue to monitor Resolved: S/P Leukocytosis -WBC 23.57-->16.98-->8.72 -CRP 12.8-->11.8 -Rocephin as above -Flagyl Q8Hr due to concern over possible colonic bacterial translocation -Likely 2/2 UTI -Continue to monitor S/P Hypomagnesemia -Magnesium 1.6-->1.7-->1.9 -Supplemented -Continue to monitor Chronic: impaired vision HLD hypertension hyperlipidemia Hx/o hypomagnesemia Hx/o hypokalemia diverticulosis GERD hemorrhoids Hx/o bowel resection Hx/o ileus Hx/o C. 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 Lynn Overall Veronica did well. She was admitted to the medical floor for an ileus. CT scan and abdominal x-rays were obtained as above. Rectal tube was placed which did lead to improvement. Dr. Lim did do a digital rectal exam and did not find any stool in the rectal vault. A enema was then given with good results. She was given a second enema that night with further improvement. Her abdominal pain resolved and her abdomen became soft. She was noted to have leukocytosis with a WBC of 23.57. She was found to have a UTI and rocephin was started, as she has had multiple prior E. Coli UTIs. There was concern over translocation of bacteria in the colon as well so Dr. Lim recommended continuing Flagyl. UA grew out pseudomonas Aeruginosa, which was found to be sensitive to levaquin. Discussion with pharmacy ensued and the decision was made to discharge her on 5 more days of 750mg PO levaquin. Her potassium and magnesium were low secondary to diarrhea and poor oral intake. She has been eating well today and yesterday and diet was advanced. Her magnesium responded well however he potassium was slower to improve. She was given IV supplementation prior to discharge and will be prescribed on a 3 day course of daily oral potassium. Dr. Lim reviewed her bowel medications and recommended a suppository PRN and scheduled Dulcolax PO. She will be discharged back to [facility] today. She should continue restorative therapies with PT and OT as before. Home medications were continued. In addition she was prescribed a 5 day course of levaquin, PRN dulcolax suppository , daily dulcolax, and 3 day course of 40mg potassium daily. She should follow- up with her PCP within 7-10 days of discharge. Recommend re-check BMP and magnesium at that time. Overall Veronica's prognosis is poor as she has had several ileus's and is bedridden. This will likely be a continuing issue for her. She is also incontinent which makes her highly susceptible to urinary tract infections. On prior visits there have been concerns over her swallowing ability. She has seen our FUR EXAMINER several times and was lastly recommended to have an NDD2 diet with thickened liquids. Family has been refusing this per SNF report. - Patient Instructions Diet: Usual Diet as Tolerated Diet, Other: Prior SNF diet Activity: As Tolerated, Bedrest Driving: Do Not Drive Showering/Bathing: May Shower Notify Provider of: Fever, Increased Pain, Nausea and/or Vomiting - Discharge Plan *PRESCRIPTION DRUG MONITORING PROGRAM REVIEWED*: No *COPY OF PRESCRIPTION DRUG MONITORING REPORT IN PATIENT SHEREE: No Prescriptions/Med Rec: Bisacodyl [Dulcolax] 10 mg RECTAL DAILY PRN #5 supp PRN Reason: Constipation Bisacodyl [Dulcolax] 5 mg PO DAILY #20 tablet. Levofloxacin [Levaquin] 750 mg PO DAILY #5 tablet Potassium Chloride [K-Tab ER] 40 meq PO DAILY #6 tablet.er Home Medications: Home Meds Acetaminophen [Tylenol Extra Strength] 500 mg PO Q8H PRN 02/22/18 [History] Ondansetron [Zofran ODT] 4 mg PO Q6HR PRN 02/22/18 [History] Sertraline [Zoloft] 100 mg PO DAILY 02/22/18 [History] Pantoprazole [ProTONIX] 40 mg PO DAILY #30 tab.cr 03/18/18 [Rx] Saccharomyces Boulardii [Florastor] 250 mg PO BID #60 cap 03/18/18 [Rx] Acetaminophen [Tylenol] 650 mg RECTAL Q4HR PRN 07/28/18 [History] Divalproex Sodium [Depakote Sprinkle] 125 mg PO BEDTIME 07/28/18 [History] Menthol/Camphor [Sarna Anti-Itch Lotion] 1 applic TOP ASDIRECTED PRN 07/28/18 [ History] Polyethylene Glycol 3350 [MiraLAX] 17 gram PO DAILY 07/28/18 [History] Lisinopril [Prinivil] 10 mg PO DAILY #30 tablet 08/01/18 [Rx] Sennosides/Docusate Sodium [Senokot-S Tablet] 1 each PO BID #60 tablet 08/01/18 [Rx] Simethicone 80 mg PO Q6H PRN #30 tab.chew 08/01/18 [Rx] Wheat Dextrin [Benefiber] 1 each PO ASDIRECTED #12 powd.pack 08/01/18 [Rx] amLODIPine [Norvasc] 5 mg PO BID #30 tablet 08/01/18 [Rx] hydroCHLOROthiazide [Hydrochlorothiazide] 12.5 mg PO BIDDIURETIC #60 cap [Rx] Bisacodyl [Dulcolax] 5 mg PO DAILY #20 tablet.dr 08/20/18 [Rx] Bisacodyl [Dulcolax] 10 mg RECTAL DAILY PRN #5 supp 08/20/18 [Rx] Levofloxacin [Levaquin] 750 mg PO DAILY #5 tablet 08/20/18 [Rx] Potassium Chloride [K-Tab ER] 40 meq PO DAILY #6 tablet.er 08/20/18 [Rx] Oxygen Therapy Mode: Room Air Patient Handouts: Ileus, Urinary Tract Infection, Adult Referrals: Traci Lynn MD [Primary Care Provider] - 08/26/18 9:00 am - Discharge Summary/Plan Comment DC Time >30 min.: Yes (45 minutes ) - General Info Date of Service: 08/20/18 Admission Dx/Problem (Free Text: constipation/colonic dilation Subjective Update: In to see Veronica. She is sitting up in the chair. She is very alert and clinically looks very good. Her last BM was the night before. She has not had any diarrhea or abdominal pain today. Her abdomen is soft. She has been eating and her diet was advanced without issue. Potassium remains low, but improved, and was supplemented today. Her is at bedside and we discussed discharge plan. No nursing or patient concerns. She will be discharged back to [facility] today. Functional Status: Reports: Pain Controlled, Tolerating Diet, Urinating. Denies : Ambulating, New Symptoms - Review of Systems General: Reports: No Symptoms. Denies: Fever, Weakness HEENT: Reports: No Symptoms. Denies: Headaches Pulmonary: Reports: No Symptoms. Denies: Shortness of Breath, Cough, Sputum, Wheezing Cardiovascular: Reports: No Symptoms. Denies: Chest Pain, Palpitations Gastrointestinal: Reports: No Symptoms. Denies: Abdominal Pain, Constipation, Diarrhea, Nausea, Vomiting Genitourinary: Reports: No Symptoms. Denies: Pain Musculoskeletal: Reports: No Symptoms Skin: Reports: No Symptoms Neurological: Reports: Pre-Existing Deficit, Trouble Speaking, Difficulty Walking, Weakness, Gait Disturbance. Denies: Confusion Psychiatric: Reports: No Symptoms - Patient Data Vitals - Most Recent: Last Vital Signs Temp 99.3 F 08/20/18 03:04 Pulse 80 08/20/18 03:04 Resp 18 08/20/18 03:04 BP 140/67 08/20/18 03:04 Pulse Ox 99 08/20/18 03:04 Weight - Most Recent: 141 lb I&O - Last 24 hours: Intake & Output 08/19/18 08/19/18 08/20/18 14:59 22:59 06:59 Intake Total 120 2450 240 Output Total 200 Balance 120 2250 240 Lab Results - Last 24 hrs: Laboratory Results - last 24 hr 08/19/18 08/19/18 08/20/18 Range/Units 06:14 06:14 06:13 WBC 7.90 (3.98-10.04) K/mm3 RBC 4.13 (3.98-5.22) M/mm3 Hgb 9.4 L (11.2-15.7) gm/L Hct 30.0 L (34.1-44.9) % MCV 72.6 L (79.4-94.8) fl MCH 22.8 L (25.6-32.2) pg MCHC 31.3 L (32.2-35.5) g/dl RDW Std Deviation 47.1 H (36.4-46.3) fL Plt Count 235 (182-369) K/mm3 MPV 11.1 (9.4-12.3) fl Neut % (Auto) 79.4 H (34.0-71.1) % Lymph % (Auto) 13.3 L (19.3-51.7) % [place] % (Auto) 5.6 (4.7-12.5) % Eos % (Auto) 1.3 (0.7-5.8) Baso % (Auto) 0.1 (0.1-1.2) % Neut # (Auto) 6.28 H (1.56-6.13) K/mm3 Lymph # (Auto) 1.05 L (1.18-3.74) K/mm3 [place] # (Auto) 0.44 H (0.24-0.36) K/mm3 Eos # (Auto) 0.10 (0.04-0.36) K/mm3 Baso # (Auto) 0.01 (0.01-0.08) K/mm3 Manual Slide Review Abnormal smear Sodium 140 (136-145) mEq/L Potassium 2.8 L (3.5-5.1) mEq/L Chloride 107 (98-107) mEq/L Carbon Dioxide 21 (21-32) mEq/L Anion Gap 14.8 (5-15) BUN 5 L (7-18) mg/dL Creatinine 0.5 L (0.55-1.02) mg/dL Est Cr Clr Drug Dosing 105.89 mL/min Estimated GFR (MDRD) > 60 (>60) mL/min BUN/Creatinine Ratio 10.0 L (14-18) Glucose 126 H (80-115) mg/dL Calcium 8.3 L (8.5-10.1) mg/dL Magnesium 1.7 L (1.8-2.4) mg/dl C-Reactive Protein 7.0 H* (<1.0) mg/dL 08/20/18 Range/Units 06:13 WBC (3.98-10.04) K/mm3 RBC (3.98-5.22) M/mm3 Hgb (11.2-15.7) gm/L Hct (34.1-44.9) % MCV (79.4-94.8) fl MCH (25.6-32.2) pg MCHC (32.2-35.5) g/dl RDW Std Deviation (36.4-46.3) fL Plt Count (182-369) K/mm3 MPV (9.4-12.3) fl Neut % (Auto) (34.0-71.1) % Lymph % (Auto) (19.3-51.7) % [place] % (Auto) (4.7-12.5) % Eos % (Auto) (0.7-5.8) Baso % (Auto) (0.1-1.2) % Neut # (Auto) (1.56-6.13) K/mm3 Lymph # (Auto) (1.18-3.74) K/mm3 [place] # (Auto) (0.24-0.36) K/mm3 Eos # (Auto) (0.04-0.36) K/mm3 Baso # (Auto) (0.01-0.08) K/mm3 Manual Slide Review Sodium 140 (136-145) mEq/L Potassium 3.2 L (3.5-5.1) mEq/L Chloride 109 H (98-107) mEq/L Carbon Dioxide 21 (21-32) mEq/L Anion Gap 13.2 (5-15) BUN 7 (7-18) mg/dL Creatinine 0.5 L (0.55-1.02) mg/dL Est Cr Clr Drug Dosing 105.89 mL/min Estimated GFR (MDRD) > 60 (>60) mL/min BUN/Creatinine Ratio 14.0 (14-18) Glucose 83 (80-115) mg/dL Calcium 8.2 L (8.5-10.1) mg/dL Magnesium 1.9 (1.8-2.4) mg/dl C-Reactive Protein 6.9 H* (<1.0) mg/dL [facility] Results - Last 24 hrs: Microbiology 08/16/18 23:55 Aerobic Blood Culture - Preliminary Blood - Venous NO GROWTH AFTER 3 DAYS Anaerobic Blood Culture - Preliminary NO GROWTH AFTER 3 DAYS 08/16/18 23:45 Aerobic Blood Culture - Preliminary Blood - Venous - Lab Draw NO GROWTH AFTER 3 DAYS Anaerobic Blood Culture - Preliminary NO GROWTH AFTER 3 DAYS 08/16/18 20:33 Urine Culture - Final Urine, Catheterized Pseudomonas Aeruginosa Med Orders - Current: Current Medications Acetaminophen (Tylenol) 650 mg PO Q4H PRN PRN Reason: Pain (Mild 1-3)/fever Amlodipine Besylate (Norvasc) 5 mg PO BID [facility] Last Admin: 08/19/18 20:09 Dose: 5 mg Divalproex Sodium (Depakote Sprinkle) 125 mg PO BEDTIME [facility] Last Admin: 08/19/18 20:10 Dose: 125 mg Enoxaparin Sodium (Lovenox) 40 mg SUBCUT DAILY [facility] Last Admin: 08/19/18 08:41 Dose: 40 mg Hydrochlorothiazide (Hydrochlorothiazide) 12.5 mg PO BIDDIURETIC [facility] Last Admin: 08/18/18 06:03 Dose: 12.5 mg Piperacillin Sod/Tazobactam (Sod 4.5 gm/ Sodium Chloride) 100 mls @ 25 mls/hr IV Q8H [facility] Last Admin: 08/20/18 06:38 Dose: 25 mls/hr Ondansetron HCl (Zofran) 4 mg IVPUSH Q6HR PRN PRN Reason: Nausea/Vomiting Pantoprazole Sodium (Protonix) 40 mg PO DAILY [facility] Saccharomyces Boulardii (Florastor) 250 mg PO BID [facility] Last Admin: 08/19/18 20:10 Dose: 250 mg Sertraline HCl (Zoloft) 100 mg PO DAILY [facility] Last Admin: 08/19/18 08:27 Dose: 100 mg Simethicone (Simethicone) 80 mg PO Q6H PRN PRN Reason: Gas Sodium Chloride (Saline Flush) 10 ml FLUSH ASDIRECTED PRN PRN Reason: Keep Vein Open Last Admin: 08/16/18 17:08 Dose: 10 ml Discontinued Medications Sodium Chloride (Normal Saline) 500 mls @ 999 mls/hr IV .BOLUS ONE Stop: 08/16/18 17:27 Last Admin: 08/16/18 17:07 Dose: 999 mls/hr Ceftriaxone Sodium 2 gm/ (Sodium Chloride) 100 mls @ 200 mls/hr IV ONETIME ONE Stop: 08/16/18 21:38 Last Admin: 08/16/18 21:18 Dose: 200 mls/hr Metronidazole 500 mg/ Premix 100 mls @ 100 mls/hr IV ONETIME ONE Stop: 08/16/18 22:23 Last Admin: 08/16/18 21:54 Dose: 100 mls/hr Sodium Chloride (Normal Saline) 1,000 mls @ 100 mls/hr IV ASDIRECTED [facility] Last Admin: 08/18/18 06:07 Dose: 100 mls/hr Ceftriaxone Sodium 1 gm/ (Sodium Chloride) 100 mls @ 200 mls/hr IV Q24H [facility] Last Admin: 08/17/18 20:55 Dose: 200 mls/hr Metronidazole 500 mg/ Premix 100 mls @ 100 mls/hr IV Q8H [facility] Last Admin: 08/18/18 09:23 Dose: 100 mls/hr Potassium Chloride 10 meq/ (Premix) 100 mls @ 100 mls/hr IV Q1H [facility] Stop: 08/17/18 12:44 Last Admin: 08/17/18 14:31 Dose: 100 mls/hr Potassium Chloride 10 meq/ (Premix) 100 mls @ 100 mls/hr IV Q1H [facility] Stop: 08/18/18 14:29 Last Admin: 08/18/18 14:28 Dose: 100 mls/hr Magnesium Sulfate 2 gm/ Premix 50 mls @ 25 mls/hr IV ONETIME ONE Stop: 08/18/18 09:49 Last Admin: 08/18/18 10:25 Dose: 25 mls/hr Potassium Chloride/Dextrose/Sod Cl (D5 Ns With 20 Meq Kcl) 1,000 mls @ 75 mls/ hr IV ASDIRECTED [facility] Last Admin: 08/18/18 22:11 Dose: 75 mls/hr Piperacillin Sod/Tazobactam (Sod 4.5 gm/ Sodium Chloride) 100 mls @ 200 mls/hr IV ONETIME ONE Stop: 08/18/18 14:59 Last Admin: 08/18/18 14:47 Dose: 200 mls/hr Potassium Chloride 10 meq/ (Premix) 100 mls @ 100 mls/hr IV Q1H [facility] Stop: 08/19/18 13:59 Last Admin: 08/19/18 13:56 Dose: 100 mls/hr Potassium Chloride/Sodium Chloride (Normal Saline With 40 Meq Kcl) 1,000 mls @ 75 mls/hr IV ASDIRECTED [facility] Stop: 08/19/18 18:00 Last Admin: 08/19/18 08:06 Dose: 75 mls/hr Magnesium Sulfate 2 gm/ Premix 50 mls @ 25 mls/hr IV ONETIME ONE Stop: 08/19/18 09:59 Last Admin: 08/19/18 08:12 Dose: 25 mls/hr Magnesium Sulfate (Magnesium Sulfate In Water Premix) Confirm Administered Dose 50 mls @ as directed .ROUTE .STK-MED ONE Stop: 08/19/18 07:52 Last Admin: 08/19/18 08:01 Dose: Not Given Lisinopril (Prinivil) 10 mg PO DAILY [facility] Last Admin: 08/17/18 09:19 Dose: 10 mg Non-Formulary Medication (Camphor/Menthol) 1 applic TOP ASDIRECTED PRN PRN Reason: Dryness Ondansetron HCl (Zofran) 4 mg IVPUSH ONETIME ONE Stop: 08/16/18 16:58 Last Admin: 08/16/18 17:06 Dose: 4 mg Ondansetron HCl (Zofran Odt) 4 mg PO Q6H PRN PRN Reason: Nausea Ondansetron HCl (Zofran) 4 mg IVPUSH Q6H PRN PRN Reason: Nausea/Vomiting Sertraline HCl (Zoloft) 150 mg PO DAILY [facility] Last Admin: 08/17/18 09:20 Dose: 150 mg - Exam Quality Assessment: Reports: DVT Prophylaxis General: Reports: Alert, Oriented, Cooperative, No Acute Distress HEENT: Reports: Pupils Equal, Pupils Reactive, EOMI, Mucous Membr. Moist/Adwolf Lungs: Reports: Clear to Auscultation, Normal Respiratory Effort Cardiovascular: Reports: Regular Rate, Regular Rhythm GI/Abdominal Exam: Normal Bowel Sounds, Soft, Non-Tender, No Organomegaly, No Distention (Female) Exam: Deferred Rectal (Female) Exam: Deferred Back Exam: Reports: Normal Inspection, Decreased Range of Motion Extremities: Normal Inspection, Non-Tender, No Pedal Edema, Normal Capillary Refill, Limited Range of Motion, Other (contracted extrmities ) Skin: Reports: Warm, Dry, Intact Neurological: Reports: No New Focal Deficit Psy/Mental Status: Reports: Alert, Normal Affect, Normal Mood
[2018-08-20] MEDS: Potassium Chloride 10 MEQ in Premix Bag 1 BAG IV SCH ×4 (08:34→11:49)
[2018-08-20 08:35] VITALS: BP 128/86
[2018-08-20] MEDS: Saccharomyces Boulardii (Probiotic) 250 MG Cap PO SCH (08:36)
[2018-08-20] MEDS: amLODIPine 5 MG Tab PO SCH (08:36)
[2018-08-20] MEDS: Sertraline 50 MG Tab PO SCH (08:36)
[2018-08-20] MEDS: Enoxaparin 40 MG/0.4 ML Syringe SUBCUT SCH (08:41)
[2018-08-20] MEDS ORDERED: Pantoprazole 40 MG Tab.CR PO SCH (09:00)
== END 2018-08-20 13:47 | DRG 389 ==
LOC: JD.ED 16:13 → JD.MS 21:40
PROVIDERS: ADMIT Family Medicine; ATTEND Family Medicine
DX: K56.7 Ileus, unspecified (principal); N39.0 Urinary tract infection, site not specified; B96.5 Pseudomonas (aeruginosa) (mallei) (pseudomallei) as the cause of diseases classified elsewhere; E83.42 Hypomagnesemia; E87.6 Hypokalemia; E78.00 Pure hypercholesterolemia, unspecified; I10 Essential (primary) hypertension; K21.9 Gastro-esophageal reflux disease without esophagitis; R32 Unspecified urinary incontinence; M19.90 Unspecified osteoarthritis, unspecified site; F41.9 Anxiety disorder, unspecified; F32.9 Major depressive disorder, single episode, unspecified; D64.9 Anemia, unspecified; F03.90 Unspecified dementia, unspecified severity, without behavioral disturbance, psychotic disturbance, mood disturbance, and anxiety; H54.7 Unspecified visual loss; L98.499 Non-pressure chronic ulcer of skin of other sites with unspecified severity; R50.9 Fever, unspecified; R00.0 Tachycardia, unspecified; R60.0 Localized edema; R11.10 Vomiting, unspecified; R10.9 Unspecified abdominal pain; R06.02 Shortness of breath; R14.0 Abdominal distension (gaseous); E78.5 Hyperlipidemia, unspecified; K59.09 Other constipation; M81.0 Age-related osteoporosis without current pathological fracture; Z90.710 Acquired absence of both cervix and uterus; Z90.49 Acquired absence of other specified parts of digestive tract; Z86.73 Personal history of transient ischemic attack (TIA), and cerebral infarction without residual deficits; Z66 Do not resuscitate; Z79.899 Other long term (current) drug therapy
CPT/HCPCS: 36415; 74019; 74176; 80053; 81001; 83605; 83690; 85025; 87086; 87088; 87186 ×2; 96361; 96365; 96375; 99285; J0696; J2405; J7030; J7040; 74018; 74018-26; 80048; 82962; 83036; 83735; 86140; 87040; 87641; 97110-GO; 97140-GO; 97167-GO; 97530-GO; 99283; A9270-GY; J1650; J2543; J3475; J3480; J3490